=== PATIENT | female | born 1930 ===

== ENCOUNTER 2018-03-04 08:35 | Inpatient (IN) | payer MEDICARE ==
[2018-03-04] MEDS ORDERED: Ondansetron INJ* 2 MG/ML VIAL IV PRN (10:49)
[2018-03-04] MEDS ORDERED: Nicotine Inhaler* 10 MG AMP INH PRN (10:57)
[2018-03-04] MEDS ORDERED: Mouth Piece, Nicotine* 1 EACH CARTRIDGE INH PRN (10:57)
[2018-03-04] MEDS ORDERED: Albuterol/Ipratropium NEB.SOL* Albuterol 2.5 MG/Ipratropium 0.5 MG 3 ML INH PRN (10:57)
[2018-03-04] MEDS: NS 0.9% 1000 ML* 1,000 ML IV SCH (11:06)
[2018-03-04] MEDS ORDERED: Pantoprazole IV* 40 MG IV ONE (11:07)
[2018-03-04 11:12] LABS: Hematocrit 18 % (35-47); Hemoglobin 5.8 g/dl (12.0-16.0); Mean Corpuscular HGB Conc 32 g/dl (31-36); Mean Corpuscular Hemoglobin 28 pg (27-31); Mean Corpuscular Volume 89 fL (80-97); Mean Platelet Volume 9.6 um3 (7.4-10.4); Platelet Count 281 10^3/ul (150-450); Red Blood Count 2.07 10^6/ul (4.0-5.4); Red Cell Distribution Width 14 % (10.5-15); White Blood Count 37.4 10^3/ul (3.5-10.8)
[2018-03-04 11:26] LABS: EGFR Non-African American 102.6 (>60)
[2018-03-04 11:44] LABS: INR 0.92 (0.77-1.02)
[2018-03-04] MEDS ORDERED: Pantoprazole IV* 80 MG in NS 0.9% 100 ML* 100 ML IVPB SCH (12:30)
--- NOTE | 2018-03-04 12:50 | RAD ---
INDICATION: Infiltrate. COMPARISON: Comparison is made with a prior chest x-ray study from February 25, 2018. TECHNIQUE: A portable view of the chest was obtained. FINDINGS: Cardiac and mediastinal contours appear to be within normal limits. The lungs are hyperinflated with flattening of the diaphragms consistent with chronic obstructive pulmonary disease. There is mild prominence of the interstitial markings which is unchanged. There is a small infiltrate at the right lung base and suggestive of a trace right pleural effusion. IMPRESSION: 1. SMALL RIGHT BASILAR INFILTRATE AND TRACE PLEURAL EFFUSION. 2. COPD.
--- NOTE | 2018-03-04 13:41 | HP ---
CC: Dr. Humphreys * HISTORY AND PHYSICAL: DATE OF ADMISSION: 03/04/18 PRIMARY CARE PROVIDER: Dr. Humphreys. CHIEF COMPLAINT: GI bleed. HISTORY OF PRESENT ILLNESS: Ms. Haddad is an 87-year-old female, who was admitted to [facility] on 02/21/18, with diagnosis of pneumonia, COPD exacerbation , and acute on chronic hypoxic respiratory failure. She is being managed with antibiotics, which now appear to have been discontinued and Solu-Medrol for COPD exacerbation. She has been weaned down to 2 L of oxygen. Two days prior to transfer to [facility], the patient reportedly had an episode where she went hypotensive and diaphoretic. She was given fluids and had improvement in her blood pressure. Her blood pressure medications have since been discontinued. On 03/02/18, her hemoglobin was 9.7 and hematocrit of 30.6. This had decreased to 8.2/26.2 on the morning 03/03/18. Subsequently, dropped even further last evening to 7.5/24.3, and this morning she was down to 6.1/19.8. The patient reportedly had black tarry stools. Because of this, I was contacted and was requested to accept the patient in transfer to [facility] for evaluation of GI bleed. Once the patient arrived to [facility], she states that she was feeling okay. She does state that she feels tired. She also states that she does not want to be in the hospital any longer. She denies any pain. She states that she did have a bowel movement recently, but she did not inspect it as she used a bed beach. She does states that every time she goes on antibiotic, she develops very dark stools that are somewhat sticky in nature and that is what she assumed had happened this morning. The patient denies any increased shortness of breath, no significant cough. PAST MEDICAL HISTORY: 1. Hypertension. 2. Advanced COPD with nocturnal oxygen use. 3. Dyslipidemia. 4. Depression/anxiety. PAST SURGICAL HISTORY: 1. Right inguinal hernia repair. 2. Bilateral cataract extraction. MEDICATIONS: From home: 1. Simvastatin 10 mg p.o. daily. 2. Paxil 40 mg p.o. daily. 3. Metoprolol XL 100 mg p.o. twice daily. 4. Lisinopril 40 mg p.o. daily. 5. Combivent Respimat 1 puff inhaled q.4 hours. 6. Hydroxyzine 50 mg p.o. daily p.r.n. anxiety. 7. Clonidine 0.2 mg p.o. b.i.d. 8. Spironolactone 25 mg p.o. daily. ALLERGIES: No known drug allergies. FAMILY HISTORY: Dad of leukemia. Mom of blood clot. The patient had 2 brothers, both with coronary artery disease. SOCIAL HISTORY: The patient is an active smoker of 1 to 1-1/2 packs per day. She has been smoking since the age of 19. She is retired. She lives alone. REVIEW OF SYSTEMS: A complete 11-system review of systems is obtained. Pertinent positives and negatives are as per HPI and otherwise negative. PHYSICAL EXAMINATION GENERAL: The patient is a well-developed elderly, thin, female seen lying flat on bed, in no acute distress. VITAL SIGNS: Blood pressure 110/39, pulse 77, respirations 16, temp 97.6, O2 sat 96% on 2 L. HEENT: Pupils are equal and round. Extraocular muscles are intact. Oropharynx is clear. Oral mucosa is slightly dry. The patient wears upper and lower dentures. There is no submandibular, cervical, or supraclavicular adenopathy. Thyroid is not enlarged. No thyroid nodules are noted. PULMONARY: Lungs clear to auscultation bilaterally. CARDIAC: Normal S1, S2. Regular rate and rhythm. I do not appreciate any murmurs. There is no significant lower extremity edema. ABDOMEN: Bowel sounds present. Abdomen is soft, nontender, nondistended. MUSCULOSKELETAL: There is no cyanosis or clubbing of the digits. There is full active range of motion of all 4 extremities. Skin is warm and dry. There are no rashes. NEURO: Cranial nerves II through XII are grossly intact. Sensation is intact to light touch throughout. Strength is 5/5 and symmetric in both upper and lower extremities bilaterally. PSYCH: The patient is alert, she is oriented x3. Affect appears appropriate. LABORATORY DATA: Labs are pending from [facility], but from [facility], WBC is 40.5, hemoglobin 6.1, hematocrit 19.8, platelets 289. BMP from 03/03/18: Sodium 137 , potassium 4.9, chloride 102. CO2 32, BUN 74, creatinine 0.9, glucose 147, calcium 7.8. Bilirubin 0.2, AST 19, ALT 23, alk phos 55. Albumin 2.0. Stool occult blood, on 03/03/18, positive. Repeat labs at [facility] pending. ASSESSMENT AND PLAN: Ms. Haddad is an 87-year-old female with a history of chronic obstructive pulmonary disease with ongoing tobacco abuse, hypertension, and hyperlipidemia, who was admitted to [facility] on 02/21/18, with acute on chronic hypoxic respiratory failure in the setting of pneumonia and chronic obstructive pulmonary disease exacerbation, who subsequently has developed what appears to be upper gastrointestinal bleed, was transferred to [facility] for further evaluation. 1. Probable upper gastrointestinal bleed: The patient's symptoms of black tarry stools along with the drop in hemoglobin and hematocrit and elevated BUN make me most concerned for an upper gastrointestinal bleed. The patient does not give any history of nonsteroidal anti-inflammatory drug use. She states at home, she utilizes Tylenol for pain. She has been receiving high-dose steroids while at [place]. So, perhaps this contributed some. The patient has not been receiving from what I can tell any PPI. She will receive Protonix 40 mg IV x1 now followed by Protonix drip at 8 mg per hour. GI consultation has been requested. Again, repeat labs are pending as is type and screen. When this comes back, she will likely be transfused at least 1 unit of packed red blood cells. 2. Acute on chronic hypoxic respiratory failure in the setting of pneumonia and chronic obstructive pulmonary disease exacerbation: At this point, the patient's breath sounds are diminished but clear. She appears to be off antibiotics at this point. She is now 12 days into her hospitalization. I will hold off on any antibiotic therapy at this point. She does have a marked leukocytosis of 40.5. I am going to also markedly reduce her steroid dose. We will watch for improvement in her white blood cell count. If this fails to improve, perhaps Hematology evaluation should be considered after discussing with the patient. 3. Ongoing tobacco abuse: The patient will have a nicotine patch and nicotine inhaler available for cravings. 4. Depression/anxiety: We will continue Paxil. 5. Hyperlipidemia: We will continue statin. 6. Hypertension: The patient normally on a significant number of antihypertensives including metoprolol XL at high dose, clonidine, lisinopril at high dose, and spironolactone. Her blood pressure currently is under excellent control not any of these medications. For now, I am going to monitor her blood pressure and as needed will add back her antihypertensives. 7. DVT prophylaxis: According to Adult Thrombosis Prophylaxis Risk Factor Assessment Guide, the patient has a total risk factor score of 4, making her high risk. SCDs alone will be utilized as DVT prophylaxis given her probable upper gastrointestinal bleed. 8. Code status is DNR. This is confirmed with the patient today. TIME SPENT: Sixty-five minutes was spent admitting this patient. [id number]/[facility] #: [id number] CALIST[place]
[2018-03-04] MEDS: Pantoprazole IV* 80 MG in NS 0.9% 250 ML* 250 ML IVPB SCH (13:44)
[2018-03-04] MEDS ORDERED: LORazepam TAB(*) 0.5 MG PO ONE (14:00)
[2018-03-04 18:25] LABS: Hematocrit 24 % (35-47); Hemoglobin 7.8 g/dl (12.0-16.0)
--- NOTE | 2018-03-04 20:58 | CONS ---
CC: Dr. Giovana Humphreys * CONSULTATION REPORT: DATE OF CONSULT: 03/04/18 REQUESTING PHYSICIAN: Dr. Rosa. NARRATIVE: Ms. Haddad is a very pleasant 87-year-old, frail, debilitated female, who was admitted to [facility] on 02/21/18 with complaints of shortness of breath. She was admitted for pneumonia and COPD exacerbation. She was started on antibiotics and steroids and seemed to be improving. However, on the morning of 03/04/18, she was transferred to the [facility] after yesterday she was found to be hypotensive and diaphoretic. Her blood pressure medicines were held. She did have her hemoglobin checked and it was 6.1. She was having melena also. She now really is not complaining much of anything at all. She is receiving blood transfusion as we speak. She states that her breathing is better, but still somewhat difficult. She feels weak and fatigued. PAST MEDICAL HISTORY: Depression; hyperlipidemia; hypertension; severe COPD, with oxygen. PAST SURGICAL HISTORY: Includes hernia repair, cataracts. MEDICATIONS: 1. Simvastatin. 2. Paxil. 3. Metoprolol. 4. Lisinopril. 5. Combivent. 6. Hydroxyzine. 7. Clonidine. 8. Spironolactone. No nonsteroidals. ALLERGIES: None. FAMILY HISTORY: Positive for leukemia and coronary artery disease. SOCIAL HISTORY: She continues to smoke tobacco. She started approximately 65 years ago. REVIEW OF SYSTEMS: Twelve systems were reviewed, other than mentioned in the HPI were unremarkable. PHYSICAL EXAM: Temperature is 97.6, blood pressure is 110/39, pulse is 96, respiratory rate of 32. General: Elderly, frail-appearing female, lying flat in bed, receiving blood, alert. HEENT: Mucous membranes are moist. Dentition is poor. Lungs: Coarse breath sounds bilaterally. Very poor inspiratory effort. Not much air movement. Heart: Regular rate and rhythm. Abdomen: Positive bowel sounds. Soft, nontender, nondistended. No hepatosplenomegaly, masses, rebound, or guarding. Skin is warm and dry. LABORATORY DATA: Of note, her white count is 37.4, hemoglobin is 5.8, platelets of 281. INR is 0.92. Sodium is 139, BUN is 63, creatinine is 0.56. ASSESSMENT AND PLAN: This is an 87-year-old female with severe chronic obstructive pulmonary disease, recovering from pneumonia, who is transferred from [facility] to [facility] due to gastrointestinal bleed. It appears to be an upper gastrointestinal bleed given her elevated BUN. I do wonder if she could have peptic ulcer disease, potentially worsened by her steroids; the steroids will not cause ulcers, it will not allow for proper healing. She potentially could have Helicobacter pylori. I do not hear any nonsteroidals which would make me think of peptic ulcer disease. She could have arteriovenous malformations. At some point, she likely would benefit from an upper endoscopy. Right now, she is receiving blood. Her hemoglobin is 5.2. I think we need to get that higher and hopefully her respiratory status will improve also. She may require anesthesia to sedate her. [id number]/[facility] #: [id number] CALISTA
[2018-03-04] MEDS: Nicotine Patch Removal NOTE FOLLOW UP SCH (22:22)
[2018-03-05] MEDS: Pantoprazole IV* 80 MG in NS 0.9% 250 ML* 250 ML IVPB SCH ×3 (00:24→23:20)
[2018-03-05 00:27] LABS: Hematocrit 23 % (35-47); Hemoglobin 7.3 g/dl (12.0-16.0)
[2018-03-05 06:35] LABS: Hematocrit 20 % (35-47); Hemoglobin 6.5 g/dl (12.0-16.0); Mean Corpuscular HGB Conc 32 g/dl (31-36); Mean Corpuscular Hemoglobin 28 pg (27-31); Mean Corpuscular Volume 88 fL (80-97); Mean Platelet Volume 9.5 um3 (7.4-10.4); Platelet Count 233 10^3/ul (150-450); Red Blood Count 2.32 10^6/ul (4.0-5.4); Red Cell Distribution Width 15 % (10.5-15); White Blood Count 43.5 10^3/ul (3.5-10.8)
[2018-03-05 06:51] LABS: EGFR Non-African American 119.7 (>60)
[2018-03-05] MEDS: Atorvastatin* 10 MG TAB PO SCH (08:10)
[2018-03-05] MEDS: PARoxetine HCL TAB* 40 MG PO SCH (08:10)
[2018-03-05] MEDS: Nicotine PATCH 21 MG/24 HR* PATCH TRANSDERM SCH (08:12)
[2018-03-05] MEDS: NS 0.9% 1000 ML* 1,000 ML IV SCH (08:15)
[2018-03-05] MEDS ORDERED: Furosemide IV* 10 MG/ML 2 ML VIAL (20 MG) IV ONE ×3 (10:09→16:00)
[2018-03-05 17:20] LABS: Hematocrit 30 % (35-47); Hemoglobin 10.2 g/dl (12.0-16.0); Mean Corpuscular HGB Conc 34 g/dl (31-36); Mean Corpuscular Hemoglobin 30 pg (27-31); Mean Corpuscular Volume 87 fL (80-97); Mean Platelet Volume 9.2 um3 (7.4-10.4); Platelet Count 235 10^3/ul (150-450); Red Blood Count 3.47 10^6/ul (4.0-5.4); Red Cell Distribution Width 14 % (10.5-15); White Blood Count 49.4 10^3/ul (3.5-10.8)
--- NOTE | 2018-03-05 17:21 | PN ---
Subjective Date of Service: 03/05/18 Interval History: Hgb 5.8 -> 7.8 after 2u then drift down to 6.5. Getting 2 more units prbc tachypneic. lungs wet sounding. IVF stopped. lasix given 20mg IV x2. intermittently tachycardic cftx started. small melena EGD was not performed. leuokcytosis worsened. BUN improved. no abdominal pain. Objective Active Medications: Albuterol/Ipratropium (Duoneb (Albuterol 2.5 Mg/Ipratropium 0.5 Mg)) 1 neb INH Q4H PRN PRN Reason: SOB/WHEEZING Atorvastatin Calcium (Lipitor*) 5 mg PO DAILY [facility] Last Admin: 03/05/18 08:10 Dose: Not Given Device (Nicotine Mouth Piece*) 1 each INH .USE WITH NICOTROL PRN PRN Reason: CRAVING Pantoprazole Sodium 80 mg/ (Sodium Chloride) 250 mls @ 25 mls/hr IVPB Q10H [facility] PRN Reason: Protocol Last Admin: 03/05/18 11:26 Dose: 25 mls/hr Nicotine (Nicotine Inhaler*) 10 mg INH Q2H PRN PRN Reason: CRAVING Nicotine (Nicotine Patch 21 Mg/24 Hr*) 1 patch TRANSDERM DAILY@0800 [facility] Last Admin: 03/05/18 08:12 Dose: 1 patch Ondansetron HCl (Zofran Inj*) 4 mg IV Q6H PRN PRN Reason: NAUSEA Paroxetine HCl (Paxil Tab*) 40 mg PO DAILY [facility] Last Admin: 03/05/18 08:10 Dose: Not Given Pharmacy Profile Note (Nicotine Patch Removal Note*) 1 note FOLLOW UP 2099 [facility] Last Admin: 03/04/18 22:22 Dose: 1 note Vital Signs - 8 hr 03/05/18 03/05/18 03/05/18 09:33 10:04 10:07 Temperature 97.7 F 97.9 F Pulse Rate 92 88 Respiratory 28 40 Rate Blood Pressure 117/35 134/50 126/50 (mmHg) O2 Sat by Pulse 79 95 Oximetry 03/05/18 03/05/18 03/05/18 13:15 16:04 17:02 Temperature 98.0 F 97.3 F Pulse Rate 86 93 77 Respiratory 28 24 Rate Blood Pressure 127/57 144/60 (mmHg) O2 Sat by Pulse 90 94 91 Oximetry 03/05/18 03/05/18 17:15 17:16 Temperature Pulse Rate Respiratory Rate Blood Pressure 118/50 (mmHg) O2 Sat by Pulse 94 Oximetry Oxygen Devices in Use Now: Nasal Cannula Appearance: NAD but tachypenic and very [place] w/o hearing aides. cachexia appearing. Eyes: No Scleral Icterus, PERRLA Ears/Nose/Mouth/Throat: NL Teeth, Lips, Gums Respiratory: - - rales b/l bases. Cardiovascular: NL Sounds; No Murmurs; No JVD Abdominal: NL Sounds; No Tenderness; No Distention, No Hepatosplenomegaly Extremities: No Edema Skin: No Rash or Ulcers Neurological: Alert and Oriented x 3, NL Sensation, NL Muscle Strength and Tone Nutrition: Taking PO's Result Diagrams: 03/05/18 17:10 03/05/18 06:28 Additional Lab and Data: Laboratory Results - last 24 hr 03/04/18 03/05/18 03/05/18 10:55 00:17 06:28 WBC 43.5 H RBC 2.32 L Hgb 7.3 L 6.5 L Hct 23 L 20 L MCV 88 MCH 28 MCHC 32 RDW 15 Plt Count 233 MPV 9.5 Neut % (Auto) Lymph % (Auto) [place] % (Auto) Eos % (Auto) Baso % (Auto) Absolute Neuts (auto) Absolute Lymphs (auto) Absolute Monos (auto) Absolute Eos (auto) Absolute Basos (auto) Absolute Nucleated RBC Nucleated RBC % Sodium Potassium Chloride Carbon Dioxide Anion Gap BUN Creatinine Est GFR ( Amer) Est GFR (Non-Af Amer) BUN/Creatinine Ratio Glucose Calcium B-Natriuretic Peptide Blood Type O Positive Antibody Screen Negative Crossmatch See Detail 03/05/18 03/05/18 03/05/18 06:28 17:10 17:10 WBC 49.4 H RBC 3.47 L Hgb 10.2 L Hct 30 L MCV 87 MCH 30 MCHC 34 RDW 14 Plt Count 235 MPV 9.2 Neut % (Auto) 91.4 H Lymph % (Auto) 1.6 L [place] % (Auto) 6.8 Eos % (Auto) 0.1 Baso % (Auto) 0.1 Absolute Neuts (auto) 45.1 H Absolute Lymphs (auto) 0.8 L Absolute Monos (auto) 3.4 H Absolute Eos (auto) 0 Absolute Basos (auto) 0.1 Absolute Nucleated RBC 0 Nucleated RBC % 0 Sodium 137 L Potassium 4.4 Chloride 107 Carbon Dioxide 27 Anion Gap 3 BUN 48 H Creatinine 0.49 L Est GFR ( Amer) 154.0 Est GFR (Non-Af Amer) 119.7 BUN/Creatinine Ratio 98.0 H Glucose 146 H Calcium 7.3 L B-Natriuretic Peptide 250 H Blood Type Antibody Screen Crossmatch Assess/Plan/Problems-Billing Assessment: 87 yo female PMH severe COPD on chronic noctural O2 transfer from [facility] after melena, acute blood loss anemia. . Had been getting cftx->zosyn + high dose steroids for potential COPD exac/pna. Pending EGD. Acute on Chronic Hypoxic Respiratory failure. Marked persistent leukocytosis. - Patient Problems (1) Melena Current Visit: Yes Status: Acute Code(s): K92.1 - MELENA SNOMED Code(s): 7152529 Comment: now s/p 4u pRBC still waiting on EGD CBC q8hr small melena today. protonix IV gtt. appreciate GI recs. (2) Acute and chronic respiratory failure Current Visit: Yes Status: Acute Code(s): J96.20 - ACUTE AND CHR RESP FAILURE, UNSP W HYPOXIA OR HYPERCAPNIA SNOMED Code(s): 35002653 Comment: Initial CXR at OSH read as potential CHF. inhalers changed to scheduled per family report uses O2 nocturnally, can't state how much consider ECHO after EGD and further stabilization got lasix 20mg IV x2 after blood and IVF after e/o volume overload cftx restarted after worsening hemodynamics( tachycardia) repeat CXR in AM. (3) Leukocytosis Current Visit: Yes Status: Acute Code(s): D72.829 - ELEVATED WHITE BLOOD CELL COUNT, UNSPECIFIED SNOMED Code(s): 805803340 Comment: In 30s-40s since OSH admission. attributed to steroids but leukomoid reaction or maligancy also in differential likely heme/onc consult in AM. (4) COPD (chronic obstructive pulmonary disease) Current Visit: Yes Status: Acute Code(s): J44.9 - CHRONIC OBSTRUCTIVE PULMONARY DISEASE, UNSPECIFIED SNOMED Code(s): 48715732 Comment: dulera and spiriva started. continue albuterol nebs hold off on steroids in setting of GIB and long course at OSH. cftx restarted. (5) Smoker Current Visit: Yes Status: Acute Code(s): F17.200 - NICOTINE DEPENDENCE, UNSPECIFIED, UNCOMPLICATED SNOMED Code(s): 14214203 Comment: nicotine patch.
[2018-03-05] MEDS: cefTRIAXone(*) 1 GM in NS 0.9% 50 ML* 50 ML IVPB SCH (18:02)
[2018-03-05 18:14] LABS: ABS Basophils 0.1 10^3/ul (0-0.2); ABS Eosinophils 0 10^3/ul (0-0.6); ABS Lymphocytes 0.8 10^3/ul (1.0-4.8); ABS Monocytes 3.4 10^3/ul (0-0.8); ABS Neutrophils 45.1 10^3/ul (1.5-7.7); ABS Nucleated RBC 0 10^3/ul; Eosinophil % 0.1 % (0-6); Lymphocyte % 1.6 % (25-47); Nucleated Red Blood Cells % 0
[2018-03-05] MEDS ORDERED: Albuterol/Ipratropium NEB.SOL* Albuterol 2.5 MG/Ipratropium 0.5 MG 3 ML INH SCH (19:00)
[2018-03-05] MEDS: Albuterol/Ipratropium NEB.SOL* Albuterol 2.5 MG/Ipratropium 0.5 MG 3 ML INH SCH ×2 (20:03→22:28)
[2018-03-05] MEDS: Nicotine Patch Removal NOTE FOLLOW UP SCH (21:06)
--- NOTE | 2018-03-05 23:22 | PN ---
GASTROENTEROLOGY PROGRESS NOTE: DATE OF VISIT: 03/05/18 HISTORY: Mrs. Haddad has been having some breathing issues this morning. She continued to pass some blood from her rectum overnight and most recently a small amount this morning, none since early this morning. Her hematocrit after 2 units of blood did go from 18 to 24, but then did drop back down to 20 this morning. She has a markedly elevated white count of 43.5,000. The patient's respiratory status is poor at this time. She is currently on 4 L of oxygen with an O2 sat in the range of 93% to 95%. She does have some rales. She is receiving a third unit of packed red blood cells and has received 20 mg of IV Lasix. Her respiratory rate at times is as high as 40. Patient is somewhat confused and very hard of hearing. She denies any abdominal pain. Her INR is normal at 0.9. BUN on admission was 63, down to 48. She is on IV pantoprazole drip. PHYSICAL EXAMINATION: Temperature is 98.3, heart rate of 92, blood pressure 110 /40. Heart is regular rate and rhythm. Lungs have rhonchi and rales. Abdomen is soft. There is no tenderness. Bowel sounds are present. There is no distention. IMPRESSION: Mrs. Haddad has what appears to be an upper GI bleed. It appears she probably bled more overnight with a repeat drop in hematocrit. She has had no further blood per rectum since early this morning and hopefully the pantoprazole has controlled the bleeding. She is being evaluated for upper endoscopy today, however, given her tenuous respiratory status with her chronic obstructive pulmonary disease, possible pneumonia and possible congestive heart failure, we may need to hold off until this is stabilized. She will have a repeat hematocrit 2 hours after her second unit today. She should be kept on IV pantoprazole drip. She is currently n.p.o. for reassessment of her respiratory status a little bit later today for consideration of upper endoscopy with anesthesia assistance. If there is no ongoing evidence of active bleeding, this may be deferred until her respiratory status is significantly improved. [id number]/[facility] #: [id number] MTDD
[2018-03-06] MEDS: Albuterol/Ipratropium NEB.SOL* Albuterol 2.5 MG/Ipratropium 0.5 MG 3 ML INH SCH ×4 (06:27→19:47)
[2018-03-06] MEDS: Mometasone/Formoter 200/5 MDI INH SCH ×2 (07:13→19:47)
[2018-03-06] MEDS: Tiotropium CAP.INH* CAP.INH/18 MCG (USE ORDER SET !) INH SCH (07:14)
[2018-03-06 07:24] LABS: Hematocrit 24 % (35-47); Mean Corpuscular HGB Conc 34 g/dl (31-36); Mean Corpuscular Hemoglobin 29 pg (27-31); Mean Corpuscular Volume 87 fL (80-97); Mean Platelet Volume 9.6 um3 (7.4-10.4); Platelet Count 225 10^3/ul (150-450); Red Blood Count 2.72 10^6/ul (4.0-5.4); Red Cell Distribution Width 14 % (10.5-15); White Blood Count 36.6 10^3/ul (3.5-10.8)
[2018-03-06 07:29] LABS: ABS Basophils 0 10^3/ul (0-0.2); ABS Eosinophils 0 10^3/ul (0-0.6); ABS Lymphocytes 0.6 10^3/ul (1.0-4.8); ABS Monocytes 2.4 10^3/ul (0-0.8); ABS Neutrophils 33.6 10^3/ul (1.5-7.7); ABS Nucleated RBC 0 10^3/ul; Eosinophil % 0.1 % (0-6); Lymphocyte % 1.6 % (25-47); Nucleated Red Blood Cells % 0
[2018-03-06 07:39] LABS: EGFR Non-African American 114.3 (>60)
[2018-03-06] MEDS: Nicotine PATCH 21 MG/24 HR* PATCH TRANSDERM SCH (08:43)
[2018-03-06] MEDS ORDERED: Spiriva Inhaler DEVICE* 1 EACH DEVICE INH ONE (09:00)
--- NOTE | 2018-03-06 09:09 | RAD ---
INDICATION: Hypoxia. COMPARISON: Comparison is made with a prior chest x-ray study from March 04, 2018. TECHNIQUE: A portable view of the chest was obtained. FINDINGS: Cardiac and mediastinal contours appear to be within normal limits. There is mild diffuse prominence of the interstitial markings which are unchanged. The lungs appear hyperinflated. There is a small infiltrate at the right lung base and a trace right pleural effusion which appear unchanged. IMPRESSION: SMALL RIGHT BASILAR INFILTRATE AND TRACE PLEURAL EFFUSION, UNCHANGED.
[2018-03-06] MEDS: Atorvastatin* 10 MG TAB PO SCH (11:09)
[2018-03-06] MEDS: PARoxetine HCL TAB* 40 MG PO SCH (11:09)
[2018-03-06] MEDS: Pantoprazole IV* 80 MG in NS 0.9% 250 ML* 250 ML IVPB SCH ×2 (11:24→20:23)
[2018-03-06] MEDS ORDERED: methylPREDNISolone SOD 40 MG* 1 ML VIAL IV ONE (13:00)
[2018-03-06] MEDS ORDERED: Lidocaine 2% VISCOUS* 15 ML UDC ONE (15:04)
[2018-03-06] MEDS ORDERED: Lidocaine 4% TOPICAL* 50 ML TOP.SOLN ONE (15:05)
[2018-03-06] MEDS ORDERED: Midazolam* 1 MG/ML 2 ML VIAL (2 MG) ONE (15:07)
[2018-03-06] MEDS ORDERED: fentaNYL* 50 MCG/ML 2 ML VIAL (100 MCG VIAL) ONE (15:07)
[2018-03-06] MEDS ORDERED: Acetaminophen IV 1GM/100ML * 10 MG/ML VIAL IVPB ONE (15:35)
[2018-03-06] MEDS ORDERED: Naloxone* 0.4 MG/ML 1 ML VIAL IV PRN (15:35)
[2018-03-06] MEDS ORDERED: Ondansetron INJ* 2 MG/ML VIAL IV PRN (15:35)
[2018-03-06] MEDS ORDERED: Propofol* 10 MG/ML 20 ML BTL IV PUSH ONE (15:49)
[2018-03-06] MEDS ORDERED: Lidocaine 2% PF * 5 ML VIAL ONE (15:49)
--- NOTE | 2018-03-06 16:49 | PN ---
Subjective Date of Service: 03/06/18 Interval History: Respiratory rate stabilized overnight. Hgb 8.0 s/p EGD this afternoon with Dr. Hess with numerous ulcers/erosuibs in stomach and duodenum including with a crater and vissible vessel that was clipped. Pt without complaint. Objective Active Medications: Albuterol/Ipratropium (Duoneb (Albuterol 2.5 Mg/Ipratropium 0.5 Mg)) 1 neb INH [id number] AWAKE [facility] Last Admin: 03/06/18 12:35 Dose: 1 neb Atorvastatin Calcium (Lipitor*) 5 mg PO DAILY [facility] Last Admin: 03/06/18 11:09 Dose: Not Given Device (Nicotine Mouth Piece*) 1 each INH .USE WITH NICOTROL PRN PRN Reason: CRAVING Pantoprazole Sodium 80 mg/ (Sodium Chloride) 250 mls @ 25 mls/hr IVPB Q10H [facility] PRN Reason: Protocol Last Admin: 03/06/18 11:24 Dose: 25 mls/hr Ceftriaxone Sodium 1 gm/ (Sodium Chloride) 50 mls @ 200 mls/hr IVPB Q24H [facility] Last Admin: 03/05/18 18:02 Dose: 200 mls/hr Mometasone Furoate/Formoterol Fumar (Dulera 200/5 Mdi*) 2 puff INH BID [facility] Last Admin: 03/06/18 07:13 Dose: 2 puff Naloxone HCl (Narcan*) 0.08 mg IV Q2M PRN PRN Reason: severe induced resp depression Stop: 03/07/18 15:34 Nicotine (Nicotine Inhaler*) 10 mg INH Q2H PRN PRN Reason: CRAVING Nicotine (Nicotine Patch 21 Mg/24 Hr*) 1 patch TRANSDERM DAILY@0800 [facility] Last Admin: 03/06/18 08:43 Dose: 1 patch Ondansetron HCl (Zofran Inj*) 4 mg IV Q6H PRN PRN Reason: NAUSEA Ondansetron HCl (Zofran Inj*) 4 mg IV ONCE PRN PRN Reason: NAUSEA/VOMITING Stop: 03/06/18 19:00 Paroxetine HCl (Paxil Tab*) 40 mg PO DAILY [facility] Last Admin: 03/06/18 11:09 Dose: Not Given Pharmacy Profile Note (Nicotine Patch Removal Note*) 1 note FOLLOW UP 2099 [facility] Last Admin: 03/05/18 21:06 Dose: 1 note Tiotropium Mears (Spiriva Cap.Inh*) 1 cap INH DAILY [facility] Last Admin: 03/06/18 07:14 Dose: 1 cap Vital Signs - 8 hr 03/06/18 03/06/18 03/06/18 08:48 12:35 16:17 Temperature 98.2 F Pulse Rate 103 128 Respiratory 22 16 28 Rate Blood Pressure 139/78 (mmHg) O2 Sat by Pulse 94 96 Oximetry 03/06/18 16:30 Temperature Pulse Rate 128 Respiratory 28 Rate Blood Pressure 132/68 (mmHg) O2 Sat by Pulse 94 Oximetry Oxygen Devices in Use Now: Nasal Cannula Appearance: chronically ill appearing. cachexia Eyes: No Scleral Icterus Respiratory: Symmetrical Chest Expansion and Respiratory Effort, - - fine crackles right base. rhonchi resolved after cough. Cardiovascular: - - tachycardic, regulary, no m/r/g Abdominal: NL Sounds; No Tenderness; No Distention, No Hepatosplenomegaly Extremities: No Edema, No Clubbing, Cyanosis Skin: No Rash or Ulcers, No Nodules or Sclerosis Neurological: Alert and Oriented x 3, - - [place] DEE-NI', BETH. Nutrition: Taking PO's Result Diagrams: 03/06/18 07:01 03/06/18 07:01 Additional Lab and Data: Laboratory Results - last 24 hr 03/04/18 03/05/18 03/05/18 10:55 17:10 17:10 WBC 49.4 H RBC 3.47 L Hgb 10.2 L Hct 30 L MCV 87 MCH 30 MCHC 34 RDW 14 Plt Count 235 MPV 9.2 Neut % (Auto) 91.4 H Lymph % (Auto) 1.6 L [place] % (Auto) 6.8 Eos % (Auto) 0.1 Baso % (Auto) 0.1 Absolute Neuts (auto) 45.1 H Absolute Lymphs (auto) 0.8 L Absolute Monos (auto) 3.4 H Absolute Eos (auto) 0 Absolute Basos (auto) 0.1 Absolute Nucleated RBC 0 Nucleated RBC % 0 Hem Pathologist Commnt Sodium Potassium Chloride Carbon Dioxide Anion Gap BUN Creatinine Est GFR ( Amer) Est GFR (Non-Af Amer) BUN/Creatinine Ratio Glucose Calcium Magnesium B-Natriuretic Peptide 250 H Blood Type O Positive Antibody Screen Negative Crossmatch See Detail 03/06/18 03/06/18 07:01 07:01 WBC 36.6 H RBC 2.72 L Hgb 8.0 L Hct 24 L MCV 87 MCH 29 MCHC 34 RDW 14 Plt Count 225 MPV 9.6 Neut % (Auto) 91.7 H Lymph % (Auto) 1.6 L [place] % (Auto) 6.6 Eos % (Auto) 0.1 Baso % (Auto) 0 Absolute Neuts (auto) 33.6 H Absolute Lymphs (auto) 0.6 L Absolute Monos (auto) 2.4 H Absolute Eos (auto) 0 Absolute Basos (auto) 0 Absolute Nucleated RBC 0 Nucleated RBC % 0 Hem Pathologist Commnt Sodium 140 Potassium 4.0 Chloride 103 Carbon Dioxide 34 H Anion Gap 3 BUN 40 H Creatinine 0.51 Est GFR ( Amer) 147.0 Est GFR (Non-Af Amer) 114.3 BUN/Creatinine Ratio 78.4 H Glucose 122 H Calcium 7.8 L Magnesium 1.9 B-Natriuretic Peptide Blood Type Antibody Screen Crossmatch Assess/Plan/Problems-Billing Assessment: 87 yo female PMH severe COPD on chronic noctural O2 transfer from [facility] after melena, acute blood loss anemia. . Had been getting cftx->zosyn + high dose steroids for potential COPD exac/pna. EGD with numurouse erosions/uclear and 1 crater in duodenum with vissible vessel s/p clipped. Acute on Chronic Hypoxic Respiratory failure. Marked persistent leukocytosis. - Patient Problems (1) Melena Current Visit: Yes Status: Acute Code(s): K92.1 - MELENA SNOMED Code(s): 5013529 Comment: now s/p 4u pRBC EGD with erosions/ulcers, duodenal crater with vissible ulcer CBC q12 protonix IV gtt until tomorrow. then 40mg po BID for 6 weeks then 40mg daily appreciate GI recs. f/u CLOtest (2) Acute and chronic respiratory failure Current Visit: Yes Status: Acute Code(s): J96.20 - ACUTE AND CHR RESP FAILURE, UNSP W HYPOXIA OR HYPERCAPNIA SNOMED Code(s): 50673668 Comment: Initial CXR at OSH read as potential CHF. inhalers changed to scheduled per family report uses O2 nocturnally, can't state how much will get ECHO on 4/10 got lasix 20mg IV x2 after blood and IVF after e/o volume overload cftx restarted after worsening hemodynamics( tachycardia) (3) Leukocytosis Current Visit: Yes Status: Acute Code(s): D72.829 - ELEVATED WHITE BLOOD CELL COUNT, UNSPECIFIED SNOMED Code(s): 108740860 Comment: In 30s-40s since OSH admission. attributed to steroids but leukomoid reaction or maligancy also in differential consider heme/onc consult in AM. (4) COPD (chronic obstructive pulmonary disease) Current Visit: Yes Status: Acute Code(s): J44.9 - CHRONIC OBSTRUCTIVE PULMONARY DISEASE, UNSPECIFIED SNOMED Code(s): 78504610 Comment: dulera and spiriva started. continue albuterol nebs hold off on steroids in setting of GIB and long course at OSH. continue cftx (5) Smoker Current Visit: Yes Status: Acute Code(s): F17.200 - NICOTINE DEPENDENCE, UNSPECIFIED, UNCOMPLICATED SNOMED Code(s): 55539471 Comment: nicotine patch. Status and Disposition: medicine inpatient.
[2018-03-06 18:39] LABS: Hematocrit 21 % (35-47); Hemoglobin 7.2 g/dl (12.0-16.0); Mean Corpuscular HGB Conc 34 g/dl (31-36); Mean Corpuscular Hemoglobin 29 pg (27-31); Mean Corpuscular Volume 88 fL (80-97); Mean Platelet Volume 9.3 um3 (7.4-10.4); Platelet Count 247 10^3/ul (150-450); Red Blood Count 2.44 10^6/ul (4.0-5.4); Red Cell Distribution Width 14 % (10.5-15); White Blood Count 32.5 10^3/ul (3.5-10.8)
[2018-03-06 18:43] LABS: ABS Basophils 0.1 10^3/ul (0-0.2); ABS Eosinophils 0 10^3/ul (0-0.6); ABS Lymphocytes 0.4 10^3/ul (1.0-4.8); ABS Monocytes 2.5 10^3/ul (0-0.8); ABS Neutrophils 29.6 10^3/ul (1.5-7.7); ABS Nucleated RBC 0 10^3/ul; Eosinophil % 0 % (0-6); Lymphocyte % 1.2 % (25-47); Nucleated Red Blood Cells % 0
[2018-03-06] MEDS: cefTRIAXone(*) 1 GM in NS 0.9% 50 ML* 50 ML IVPB SCH (19:01)
--- NOTE | 2018-03-06 19:46 | PN ---
Progress Note - Progress Note Date of Service: 03/06/18 - Gastroenterology Note: Patient seen and examined this morning. Feeling better this morning. Anxious about EGD today. Denies CP/SOB. No abdominal pain. Small amount of melena overnight. Vital Signs: Temp Pulse Resp BP Pulse Ox 97.9 F 124 26 130/49 89 03/06/18 18:17 03/06/18 18:17 03/06/18 18:17 03/06/18 18:17 03/06/18 18:17 Physical Examination: GENERAL: NAD. CV: RRR. PULM: Decreased breath sounds throughout. Coarse breath sounds in bases B/L. No wheezing and rhonci. ABDOMEN: Soft, NT/ND. Laboratory Results - last 24 hr 03/05/18 03/05/18 03/06/18 17:10 17:10 07:01 WBC 36.6 H RBC 2.72 L Hgb 8.0 L Hct 24 L MCV 87 MCH 29 MCHC 34 RDW 14 Plt Count 225 MPV 9.6 Neut % (Auto) 91.7 H Lymph % (Auto) 1.6 L [place] % (Auto) 6.6 Eos % (Auto) 0.1 Baso % (Auto) 0 Absolute Neuts (auto) 33.6 H Absolute Lymphs (auto) 0.6 L Absolute Monos (auto) 2.4 H Absolute Eos (auto) 0 Absolute Basos (auto) 0 Absolute Nucleated RBC 0 Nucleated RBC % 0 Hem Pathologist Commnt Sodium Potassium Chloride Carbon Dioxide Anion Gap BUN Creatinine Est GFR ( Amer) Est GFR (Non-Af Amer) BUN/Creatinine Ratio Glucose Calcium Magnesium Total Bilirubin AST ALT Alkaline Phosphatase B-Natriuretic Peptide 250 H Total Protein Albumin Globulin Albumin/Globulin Ratio 03/06/18 03/06/18 03/06/18 07:01 18:29 18:29 WBC 32.5 H RBC 2.44 L Hgb 7.2 L Hct 21 L MCV 88 MCH 29 MCHC 34 RDW 14 Plt Count 247 MPV 9.3 Neut % (Auto) 91.0 H Lymph % (Auto) 1.2 L [place] % (Auto) 7.5 H Eos % (Auto) 0 Baso % (Auto) 0.3 Absolute Neuts (auto) 29.6 H Absolute Lymphs (auto) 0.4 L Absolute Monos (auto) 2.5 H Absolute Eos (auto) 0 Absolute Basos (auto) 0.1 Absolute Nucleated RBC 0 Nucleated RBC % 0 Hem Pathologist Commnt Sodium 140 143 Potassium 4.0 4.3 Chloride 103 105 Carbon Dioxide 34 H 32 Anion Gap 3 6 BUN 40 H 37 H Creatinine 0.51 0.54 Est GFR ( Amer) 147.0 137.7 Est GFR (Non-Af Amer) 114.3 107.0 BUN/Creatinine Ratio 78.4 H 68.5 H Glucose 122 H 116 H Calcium 7.8 L 7.8 L Magnesium 1.9 Total Bilirubin 0.90 AST 11 L ALT 11 Alkaline Phosphatase 34 B-Natriuretic Peptide Total Protein 4.2 L Albumin 2.2 L Globulin 2.0 Albumin/Globulin Ratio 1.1 A/P: 87 yo female with COPD recently treated for COPD exacerbation on long- duration of steroids p/w melena and anemia s/p 4 units of prbcs. 1. Melena with UGIB - improving. ~EGD today revealed several small clean-based ulcers erosions in antrum of the stomach with gastritis, several large clean-based and cratered ulcers with one visible vessel with recent stigmata of bleeding s/p endoclip placement with hemostasis and duodenitis. No active bleeding. Large hiatal hernia and widely patient non-obstructing Shatzki's ring were also seen. ~Continue PPI gtt for another 24 hours, then switch to Protonix 40 mg BID for 6 weeks, then decrease to once daily. ~Follow-up Clotest results to r/o H.pylori. ~Full liquid diet tonight. May advance tomorrow if no overnight issues. 2. Acute blood loss anemia s/p 4 units of prbcs - stable. ~Monitor H/H daily. ~Transfuse prbcs as needed. D/w Dr. Lamb. Opal Hess D.O.
[2018-03-06] MEDS: Nicotine Patch Removal NOTE FOLLOW UP SCH (20:18)
[2018-03-07] MEDS: Pantoprazole IV* 80 MG in NS 0.9% 250 ML* 250 ML IVPB SCH ×3 (00:26→16:00)
[2018-03-07] MEDS: Albuterol/Ipratropium NEB.SOL* Albuterol 2.5 MG/Ipratropium 0.5 MG 3 ML INH SCH ×2 (01:56→07:59)
[2018-03-07 04:53] LABS: Hematocrit 24 % (35-47); Hemoglobin 7.9 g/dl (12.0-16.0); Mean Corpuscular HGB Conc 34 g/dl (31-36); Mean Corpuscular Hemoglobin 30 pg (27-31); Mean Corpuscular Volume 88 fL (80-97); Mean Platelet Volume 9.1 um3 (7.4-10.4); Platelet Count 236 10^3/ul (150-450); Red Blood Count 2.68 10^6/ul (4.0-5.4); Red Cell Distribution Width 15 % (10.5-15); White Blood Count 24.9 10^3/ul (3.5-10.8)
[2018-03-07 04:55] LABS: ABS Basophils 0.1 10^3/ul (0-0.2); ABS Eosinophils 0 10^3/ul (0-0.6); ABS Lymphocytes 0.2 10^3/ul (1.0-4.8); ABS Monocytes 0.6 10^3/ul (0-0.8); ABS Nucleated RBC 0 10^3/ul; Eosinophil % 0 % (0-6); Lymphocyte % 0.7 % (25-47); Nucleated Red Blood Cells % 0
[2018-03-07 05:07] LABS: EGFR Non-African American 98.6 (>60)
--- NOTE | 2018-03-07 05:39 | PRO ---
CC: Dr. Giovana Humphreys; Dr. Lamb * GASTROENTEROLOGY OPERATIVE REPORT: DATE OF PROCEDURE: 03/06/18 OPERATIVE PROCEDURE: Esophagogastroduodenoscopy to third portion of duodenum. SURGEON: Opal Hess MD. ANESTHESIA: MAC. HISTORY OF PRESENT ILLNESS: Yelena is a very pleasant 87-year-old female with a history of COPD and recently on long-term steroids for a COPD exacerbation. She presented from [facility] with melena and acute blood loss anemia. She is here for a diagnostic endoscopy with possible therapeutic intervention. PREOPERATIVE DIAGNOSES: 1. Melena. 2. Acute blood loss anemia. 3. Long-term steroid use. POSTOPERATIVE DIAGNOSES: 1. Normal-appearing mid and proximal esophagus. 2. Widely patent nonobstructing Schatzki's ring. 3. A few patchy white exudates in the distal esophagus with biopsies. 4. A 6-cm hiatal hernia. 5. Several small clean-based gastric ulcers and erosions in the antrum with CLOtest to rule out H. Pylori. 6. Several large clean-based and cratered ulcers ranging from 6 mm to 12 mm and in the bulb and first portion of the duodenum with 1 visible vessel and possible underlying polyp status post 1 Endo Clip placement with hemostasis. 7. Gastroduodenitis. RECOMMENDATIONS: 1. The patient to continue Protonix drip for another 24 hours. 2. Patient should be switched to pantoprazole 40 mg orally twice daily for 6 weeks and decrease to once daily. Due to life-threatening nature of this upper GI bleeding, patient should be on daily PPI therapy due to likely need for steroids in the future and hospitalizations due to COPD to prevent stress ulcers. 3. Avoid NSAID therapy. 4. May start a full liquid diet tonight and may advance to a regular diet tomorrow if no overnight issues. 5. Continue to monitor the patient's hemoglobin daily. 6. Further recommendations will be provided as the patient's clinical course progresses. OPERATIVE PROCEDURE: Esophagogastroduodenoscopy was explained in detail to the patient. The risks, benefits, complications, alternatives, possibilities of missed lesions were explained and understood. Complications included, but were not limited to reaction to anesthesia, aspiration, increased risk of bleeding, and perforation. All questions were answered. The patient demonstrated understanding of the conversation and informed consent was obtained. Next, the patient was brought to the operating room where blood pressure, cardiac and oxygen monitors were applied. The patient was found to be a fit candidate for moderate anesthesia. After adequate IV sedation was achieved, a bite block was placed. Next, a standard adult Olympus endoscope was inserted per os under direct visualization to the first and second portion of the duodenum. There were several large clean-based and cratered ulcers noted in the bulb in the first portion of the duodenum ranging from 6-mm to 12-mm. Along the duodenal sweep in the 5 o'clock position there was a visible vessel that appeared to have recently bleed. There may have been an underlying polyp as well. One Endo Clip was placed. Hemostasis was seen. Significant amount of edema and erythema was also seen consistent with duodenitis. No active bleeding was noted. The endoscope was then further withdrawn into the stomach where a mild erythema was noted consistent with gastritis of the antrum. As well, there were several small clean based ulcers and erosions noted. No active bleeding was seen. On retroflexion, the patient had a loose gastric cardia sling. Further withdrawal of the endoscope into the distal esophagus revealed a large sliding hiatal hernia from 40 cm to 34 cm from the incisors. There also was a widely patent nonobstructing distal Schatzki's ring in the esophagus. A few patchy exudative areas were seen in the distal esophagus. This may have been food debris, but this area was biopsied to rule out seth esophagitis due to long-term steroid therapy. The rest of the tubular esophagus was normal appearing. Air was then removed from the patient. Endoscope was removed from the patient. The patient tolerated the procedure well. There were no immediate complications. 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 Thank you, Dr. Lamb, for allowing us to participate in the care of your patient. If you should have any further questions or concerns, please do not hesitate to contact us. [id number]/[facility] #: [id number] [place]
[2018-03-07] MEDS ORDERED: Albuterol 2.5 MG/3 ML NEB.SOL* (0.083%) INH PRN (07:59)
[2018-03-07] MEDS: Tiotropium CAP.INH* CAP.INH/18 MCG (USE ORDER SET !) INH SCH (08:01)
[2018-03-07] MEDS: Mometasone/Formoter 200/5 MDI INH SCH ×2 (08:02→19:47)
[2018-03-07] MEDS ORDERED: Potassium Chloride LIQUID* 20 MEQ PACKET PO SCH (09:00)
[2018-03-07] MEDS: PARoxetine HCL TAB* 40 MG PO SCH (09:11)
[2018-03-07] MEDS: Atorvastatin* 10 MG TAB PO SCH (09:11)
[2018-03-07] MEDS: Nicotine PATCH 21 MG/24 HR* PATCH TRANSDERM SCH (09:12)
--- NOTE | 2018-03-07 11:53 | ECHO ---
Patient: YURI LOCK [facility] Rec#: [id number] : 1930 Date: 03/07/2018 Age: 87y Height: 167.64 cm / 66.0 in Weight: 51.26 kg / 113.0 lbs Sex: F BSA: 1.57 Room#: 435 Admit Date#: 03/04/2018 Type: Inpatient Referring: Nahid Lamb Reading: Vishnu Rao MD Milliner Helper: [facility] Transthoracic Echocardiogram Indication: CHF BP: 124/51 HR: 108 Rhythm: Tachycardia Findings History: COPD, HTN, HLD, smoker, new upper GI bleed with anemia, current pneumonia. Technical Comments: The study quality is fair. The study is technically limited due to the patient's history of COPD. Completed at 1045. Left Ventricle: The left ventricular chamber size is normal. Moderate concentric left ventricular hypertrophy is observed. Global left ventricular wall motion and contractility are within normal limits. The left ventricle appears hyperdynamic. The estimated ejection fraction is greater than 65%. The assessment of diastolic function is non-diagnostic. Left Atrium: The left atrial chamber size is normal. Right Ventricle: The right ventricle wall thickness is moderately increased. The right ventricular cavity size is normal. The right ventricular global systolic function is hyperdynamic. Right Atrium: The right atrial cavity size is normal. Aortic Valve: The aortic valve is trileaflet. The aortic valve leaflets are mildly thickened. There is aortic annular calcification. There is trace to mild aortic regurgitation. There is borderline aortic stenosis present.Increased velocity probably due more to hyperdynamic LV systolic function. Mitral Valve: There is posterior mitral annular calcification. The mitral valve leaflets are mildly thickened. There is trace to mild mitral regurgitation. There is no evidence of mitral stenosis. Tricuspid Valve: The tricuspid valve leaflets are normal. There is trace to mild tricuspid regurgitation. The right ventricular systolic pressure is estimated at 41 mmHg. There is evidence of mild pulmonary hypertension. There is no tricuspid stenosis. Pulmonic Valve: The pulmonic valve appears normal. There is a trace pulmonic regurgitation. There is no pulmonic stenosis. Pericardium: There is no significant pericardial effusion. A pericardial fat pad is visualized. Aorta: There is no dilatation of the ascending aorta. There is no dilatation of the aortic arch. The aortic root is normal in size. Pulmonary Artery: The main pulmonary artery is not well visualized. Venous: The inferior vena cava appears normal in size. There is a greater than 50% respiratory change in the inferior vena cava dimension. Conclusions Moderate concentric left ventricular hypertrophy is observed. The left ventricle appears hyperdynamic. The estimated ejection fraction is greater than 65%. No significant valvular disease: There is trace to mild aortic regurgitation. There is borderline aortic stenosis present. Increased velocity probably due more to hyperdynamic LV systolic function. There is trace to mild mitral regurgitation. There is trace to mild tricuspid regurgitation. There is evidence of mild pulmonary hypertension. There is a trace pulmonic regurgitation. No reports of prior studies are offered for comparison. Measurements Name Value Normal Range RVIDd (AP) 2D 2.3 cm (0.9 - 2.6) RVDdMajor (2D) 3.9 cm (2.2 - 4.4) RVAW (2D) 1 cm (0.2 - 0.5) RAd ISD 4CH 4.8 cm (3.4 - 4.9) RA (A4C)W 3.9 cm (2.9 - 4.6) IVSd (2D) 1.3 cm (0.6 - 1) LVPWd (2D) 1.3 cm (0.6 - 1) LVIDd (2D) 3.6 cm (3.6 - 5.4) LVIDs (2D) 2.5 cm - LV FS (2D) 31 % (25 - 45) EF Teichholz (2D) 60 % - Aortic Annulus 1.6 cm (1.4 - 2.6) Ao root diameter (2D) 3.1 cm (2.1 - 3.5) Ascending Ao 3.1 cm (2.1 - 3.4) Aortic arch 2.2 cm (1.8 - 3.4) LA dimension (AP) 2D 3.6 cm (2.3 - 3.8) LAd ISD 4CH 4.8 cm (2.9 - 5.3) LA ISD 4CH W 3.5 cm (2.5 - 4.5) Name Value Normal Range LA ESV SP 4CH (A/L) 25 ml - LA ESV SP 2CH (A/L) 58 ml - LA ESV BP (A/L) 41 ml - LA ESV BP (A/L) index 26 ml/m2 - LA ESV SP 4CH (MOD) 22 ml - LA ESV SP 2CH (MOD) 57 ml - Name Value Normal Range MV E-wave Vmax 0.81 m/sec - MV deceleration time 207.3 msec - MV A-wave Vmax 1.34 m/sec - MV E:A ratio 0.6 ratio - LV septal e' Vmax 0.07 m/sec - LV lateral e' Vmax 0.09 m/sec - LV E:e' septal ratio 11.57 ratio - LV E:e' lateral ratio 8.89 ratio - Name Value Normal Range AV Vmax 2.2 m/sec - AV VTI 37.2 cm - AV peak gradient 19.64 mmHg - AV mean gradient 9.39 mmHg - LVOT diameter 2 cm - LVOT Vmax 2.11 m/sec - LVOT VTI 36.31 cm - LVOT peak gradient 17.83 mmHg - LVOT mean gradient 8.3 mmHg - AR PHT 337.2 msec - AR peak gradient 67.6 mmHg - ANDREW Vmax 1.13 m/sec - Name Value Normal Range TR Vmax 3.1 m/sec - TR peak gradient 38 mmHg - RAP 3 mmHg - RVSP 41 mmHg - IVC diameter 1.5 cm - Name Value Normal Range PV Vmax 1.17 m/sec - PV peak gradient 5.51 mmHg -
[2018-03-07] MEDS: cefTRIAXone(*) 1 GM in NS 0.9% 50 ML* 50 ML IVPB SCH (16:32)
[2018-03-07] MEDS: Omeprazole CAP* 20 MG PO SCH (16:32)
--- NOTE | 2018-03-07 17:03 | PN ---
Subjective Date of Service: 03/07/18 Interval History: thinks her name is Dylan and that she lives underground. "Yelena Haddad" is another patient that is being treated for an ulcer they found. Denies other complaints. Hgb to 7.9. getting 1 more unit. thick brown sputum no reports of BMs or melena. brief SVT reported last night and pt transferred to [facility] from [facility]. Objective Active Medications: Albuterol (Ventolin 2.5 Mg/3 Ml Neb.Deepti*) 2.5 mg INH Q4H PRN PRN Reason: SOB/WHEEZING Atorvastatin Calcium (Lipitor*) 5 mg PO DAILY [facility] Last Admin: 03/07/18 09:11 Dose: 5 mg Device (Nicotine Mouth Piece*) 1 each INH .USE WITH NICOTROL PRN PRN Reason: CRAVING Ceftriaxone Sodium 1 gm/ (Sodium Chloride) 50 mls @ 200 mls/hr IVPB Q24H [facility] Last Admin: 03/07/18 16:32 Dose: 200 mls/hr Mometasone Furoate/Formoterol Fumar (Dulera 200/5 Mdi*) 2 puff INH BID [facility] Last Admin: 03/07/18 08:02 Dose: 2 puff Nicotine (Nicotine Inhaler*) 10 mg INH Q2H PRN PRN Reason: CRAVING Nicotine (Nicotine Patch 21 Mg/24 Hr*) 1 patch TRANSDERM DAILY@0800 [facility] Last Admin: 03/07/18 09:12 Dose: 1 patch Omeprazole (Prilosec Cap*) 20 mg PO 0730,1630 [facility] Last Admin: 03/07/18 16:32 Dose: 20 mg Ondansetron HCl (Zofran Inj*) 4 mg IV Q6H PRN PRN Reason: NAUSEA Paroxetine HCl (Paxil Tab*) 40 mg PO DAILY [facility] Last Admin: 03/07/18 09:11 Dose: 40 mg Pharmacy Profile Note (Nicotine Patch Removal Note*) 1 note FOLLOW UP 2100 [facility] Last Admin: 03/06/18 20:18 Dose: 1 note Potassium Chloride (Klor-Con Liquid*) 40 meq PO DAILY [facility] Last Admin: 03/07/18 09:12 Dose: 40 meq Tiotropium [place] (Spiriva Cap.Inh*) 1 cap INH DAILY [facility] Last Admin: 03/07/18 08:01 Dose: Not Given Vital Signs - 8 hr 03/07/18 03/07/18 03/07/18 12:00 13:58 15:43 Temperature 98.4 F 97.5 F 97.5 F Pulse Rate 96 112 Respiratory 24 Rate Blood Pressure 140/55 123/49 136/59 (mmHg) O2 Sat by Pulse 98 100 98 Oximetry Oxygen Devices in Use Now: Nasal Cannula Appearance: chronically ill appearing. cachexia. Eyes: No Scleral Icterus, PERRLA Ears/Nose/Mouth/Throat: NL Teeth, Lips, Gums, Mucous Membranes Moist Neck: NL Appearance and Movements; NL JVP, Trachea Midline Respiratory: Symmetrical Chest Expansion and Respiratory Effort, - - soft rhonchi, no wheezing or rales. Cardiovascular: NL Sounds; No Murmurs; No JVD, - - tachycardic regular. Abdominal: NL Sounds; No Tenderness; No Distention, No Hepatosplenomegaly - not oriented to person. Extremities: No Edema Skin: No Rash or Ulcers, No Nodules or Sclerosis Neurological: NL Sensation, - Nutrition: Taking PO's Result Diagrams: 03/07/18 04:32 03/07/18 04:32 Additional Lab and Data: Laboratory Results - last 24 hr 03/04/18 03/06/18 03/06/18 10:55 18:29 18:29 WBC 32.5 H RBC 2.44 L Hgb 7.2 L Hct 21 L MCV 88 MCH 29 MCHC 34 RDW 14 Plt Count 247 MPV 9.3 Neut % (Auto) 91.0 H Lymph % (Auto) 1.2 L [place] % (Auto) 7.5 H Eos % (Auto) 0 Baso % (Auto) 0.3 Absolute Neuts (auto) 29.6 H Absolute Lymphs (auto) 0.4 L Absolute Monos (auto) 2.5 H Absolute Eos (auto) 0 Absolute Basos (auto) 0.1 Absolute Nucleated RBC 0 Nucleated RBC % 0 Sodium 143 Potassium 4.3 Chloride 105 Carbon Dioxide 32 Anion Gap 6 BUN 37 H Creatinine 0.54 Est GFR ( Amer) 137.7 Est GFR (Non-Af Amer) 107.0 BUN/Creatinine Ratio 68.5 H Glucose 116 H Calcium 7.8 L Magnesium Total Bilirubin 0.90 AST 11 L ALT 11 Alkaline Phosphatase 34 Total Protein 4.2 L Albumin 2.2 L Globulin 2.0 Albumin/Globulin Ratio 1.1 Blood Type O Positive Antibody Screen Negative Crossmatch See Detail 03/07/18 03/07/18 03/07/18 04:32 04:32 04:32 WBC 24.9 H RBC 2.68 L Hgb 7.9 L Hct 24 L MCV 88 MCH 30 MCHC 34 RDW 15 Plt Count 236 MPV 9.1 Neut % (Auto) 96.6 H Lymph % (Auto) 0.7 L [place] % (Auto) 2.5 Eos % (Auto) 0 Baso % (Auto) 0.2 Absolute Neuts (auto) 24.0 H Absolute Lymphs (auto) 0.2 L Absolute Monos (auto) 0.6 Absolute Eos (auto) 0 Absolute Basos (auto) 0.1 Absolute Nucleated RBC 0 Nucleated RBC % 0 Sodium 142 Potassium 3.7 Chloride 109 Carbon Dioxide 31 Anion Gap 2 BUN 34 H Creatinine 0.58 Est GFR ( Amer) 126.8 Est GFR (Non-Af Amer) 98.6 BUN/Creatinine Ratio 58.6 H Glucose 140 H Calcium 7.6 L Magnesium 2.1 Total Bilirubin AST ALT Alkaline Phosphatase Total Protein Albumin Globulin Albumin/Globulin Ratio Blood Type O Positive Antibody Screen Negative Crossmatch See Detail Microbiology and Other Data: Microbiology 03/06/18 16:04 Gastric Antrum CLOtest - Final Assess/Plan/Problems-Billing Assessment: 87 yo female PMH severe COPD on chronic noctural O2 transfer from [facility] after melena, acute blood loss anemia. . Had been getting cftx->zosyn + high dose steroids for potential COPD exac/pna. EGD with numurouse erosions/uclear and 1 crater in duodenum with vissible vessel s/p clipped. Acute on Chronic Hypoxic Respiratory failure. Marked persistent leukocytosis. - Patient Problems (1) Melena Current Visit: Yes Status: Acute Code(s): K92.1 - MELENA SNOMED Code(s): 0979554 Comment: now s/p 6u pRBC EGD with erosions/ulcers, duodenal crater with vissible ulcer CBC q12 protonix 40mg po BID for 6 weeks then 40mg daily. s/p gtt. appreciate GI recs. CLOtest negative. in setting of a lot of steroids recently. (2) Acute and chronic respiratory failure Current Visit: Yes Status: Acute Code(s): J96.20 - ACUTE AND CHR RESP FAILURE, UNSP W HYPOXIA OR HYPERCAPNIA SNOMED Code(s): 90510883 Comment: Initial CXR at OSH read as potential CHF. inhalers changed to scheduled per family report uses O2 nocturnally, can't state how much ECHO: EF 65%, mild pHTN. on 03/05 got lasix 20mg IV x2 after blood and IVF after e/o volume overload cftx restarted after worsening hemodynamics( tachycardia) brown sputum reported. adding sputum cx (3) Leukocytosis Current Visit: Yes Status: Acute Code(s): D72.829 - ELEVATED WHITE BLOOD CELL COUNT, UNSPECIFIED SNOMED Code(s): 599125528 Comment: In 30s-40s since OSH admission. improved today to 24.9. attributed to steroids but leukomoid reaction or maligancy also in differential (4) COPD (chronic obstructive pulmonary disease) Current Visit: Yes Status: Acute Code(s): J44.9 - CHRONIC OBSTRUCTIVE PULMONARY DISEASE, UNSPECIFIED SNOMED Code(s): 77949223 Comment: dulera and spiriva started. continue albuterol nebs hold off on steroids in setting of GIB and long course at OSH. continue cftx (5) Smoker Current Visit: Yes Status: Acute Code(s): F17.200 - NICOTINE DEPENDENCE, UNSPECIFIED, UNCOMPLICATED SNOMED Code(s): 28271134 Comment: nicotine patch. Status and Disposition: medicine inpatient.
[2018-03-07] MEDS: Nicotine Patch Removal NOTE FOLLOW UP SCH (21:54)
--- NOTE | 2018-03-07 22:08 | PN ---
GASTROENTEROLOGY PROGRESS NOTE: DATE OF SERVICE: 03/07/18 HISTORY: Ms. Haddad underwent upper endoscopy yesterday which did reveal multiple gastric erosions, large hiatal hernia, and several large clean-based and cratered ulcers in the bulb and first portion of the duodenum. One visible vessel was clipped with hemostasis. The patient is continuing on IV pantoprazole at this time. She has received a total of 5 units of packed red blood cells with subsequent hematocrit most recently checked at 4 a.m. this morning of 24 and is scheduled to have a repeat hematocrit tomorrow morning. There have been no further signs of active bleeding. The patient has developed apparently more confusion. Biopsies were negative for H. pylori in the stomach. The patient may be converted to p.o. Protonix twice a day tomorrow. Hopefully , she is scheduled to receive 1 more unit of packed red blood cells and morning hematocrit is pending. As long as there are no more signs of active bleeding, the patient may likely be discharged when stable from a pulmonary standpoint. [id number]/[facility] #: [id number] [place]
[2018-03-08 05:24] LABS: Hematocrit 25 % (35-47); Hemoglobin 8.4 g/dl (12.0-16.0); Mean Corpuscular HGB Conc 34 g/dl (31-36); Mean Corpuscular Hemoglobin 29 pg (27-31); Mean Corpuscular Volume 86 fL (80-97); Mean Platelet Volume 8.5 um3 (7.4-10.4); Platelet Count 267 10^3/ul (150-450); Red Blood Count 2.89 10^6/ul (4.0-5.4); Red Cell Distribution Width 17 % (10.5-15)
[2018-03-08 05:27] LABS: ABS Basophils 0 10^3/ul (0-0.2); ABS Eosinophils 0.1 10^3/ul (0-0.6); ABS Lymphocytes 0.6 10^3/ul (1.0-4.8); ABS Neutrophils 23.4 10^3/ul (1.5-7.7); ABS Nucleated RBC 0 10^3/ul; Eosinophil % 0.2 % (0-6); Lymphocyte % 2.1 % (25-47); Nucleated Red Blood Cells % 0
[2018-03-08 05:31] LABS: EGFR Non-African American 104.8 (>60)
[2018-03-08] MEDS: Tiotropium CAP.INH* CAP.INH/18 MCG (USE ORDER SET !) INH SCH (07:37)
[2018-03-08] MEDS: Mometasone/Formoter 200/5 MDI INH SCH ×2 (07:37→20:04)
[2018-03-08] MEDS: Omeprazole CAP* 20 MG PO SCH ×2 (08:31→17:05)
[2018-03-08] MEDS: Nicotine PATCH 21 MG/24 HR* PATCH TRANSDERM SCH (08:31)
[2018-03-08] MEDS: PARoxetine HCL TAB* 40 MG PO SCH (08:31)
[2018-03-08] MEDS: Atorvastatin* 10 MG TAB PO SCH (08:31)
[2018-03-08] MEDS ORDERED: Potassium Chloride LIQUID* 20 MEQ PACKET PO ONE (09:00)
--- NOTE | 2018-03-08 16:46 | PN ---
Subjective Date of Service: 03/08/18 Interval History: no longer disoriented but has lost 1 hearing aid and other battery may be failing. no melena or other BM Hgb 8.4 bloating sensation tachycardic, especially when ambulating. weaned to room air. Objective Active Medications: Albuterol (Ventolin 2.5 Mg/3 Ml Neb.Deepti*) 2.5 mg INH Q4H PRN PRN Reason: SOB/WHEEZING Atorvastatin Calcium (Lipitor*) 5 mg PO DAILY [facility] Last Admin: 03/08/18 08:31 Dose: 5 mg Device (Nicotine Mouth Piece*) 1 each INH .USE WITH NICOTROL PRN PRN Reason: CRAVING Ceftriaxone Sodium 1 gm/ (Sodium Chloride) 50 mls @ 200 mls/hr IVPB Q24H [facility] Last Admin: 03/07/18 16:32 Dose: 200 mls/hr Mometasone Furoate/Formoterol Fumar (Dulera 200/5 Mdi*) 2 puff INH BID [facility] Last Admin: 03/08/18 07:37 Dose: 2 puff Nicotine (Nicotine Inhaler*) 10 mg INH Q2H PRN PRN Reason: CRAVING Nicotine (Nicotine Patch 21 Mg/24 Hr*) 1 patch TRANSDERM DAILY@0800 [facility] Last Admin: 03/08/18 08:31 Dose: 1 patch Omeprazole (Prilosec Cap*) 20 mg PO 0730,1630 [facility] Last Admin: 03/08/18 08:31 Dose: 20 mg Ondansetron HCl (Zofran Inj*) 4 mg IV Q6H PRN PRN Reason: NAUSEA Paroxetine HCl (Paxil Tab*) 40 mg PO DAILY [facility] Last Admin: 03/08/18 08:31 Dose: 40 mg Pharmacy Profile Note (Nicotine Patch Removal Note*) 1 note FOLLOW UP 2100 [facility] Last Admin: 03/07/18 21:54 Dose: 1 note Tiotropium [place] (Spiriva Cap.Inh*) 1 cap INH DAILY [facility] Last Admin: 03/08/18 07:37 Dose: 1 cap Vital Signs - 8 hr 03/08/18 03/08/18 11:41 15:52 Temperature 98.9 F 97.8 F Pulse Rate 127 117 Respiratory 22 18 Rate Blood Pressure 133/60 152/70 (mmHg) O2 Sat by Pulse 97 93 Oximetry Oxygen Devices in Use Now: Nasal Cannula Appearance: NAD but chronically ill appearing. Eyes: No Scleral Icterus, PERRLA Ears/Nose/Mouth/Throat: NL Teeth, Lips, Gums Neck: NL Appearance and Movements; NL JVP, Trachea Midline Respiratory: Symmetrical Chest Expansion and Respiratory Effort, Clear to Auscultation Cardiovascular: NL Sounds; No Murmurs; No JVD, - - tachycardic Abdominal: NL Sounds; No Tenderness; No Distention Extremities: No Edema, No Clubbing, Cyanosis Skin: No Rash or Ulcers, No Nodules or Sclerosis Neurological: Alert and Oriented x 3, NL Sensation, NL Muscle Strength and Tone Result Diagrams: 03/08/18 04:46 03/08/18 04:46 Additional Lab and Data: Laboratory Results - last 24 hr 03/08/18 03/08/18 04:46 04:46 WBC 26.0 H RBC 2.89 L Hgb 8.4 L Hct 25 L MCV 86 MCH 29 MCHC 34 RDW 17 H Plt Count 267 MPV 8.5 Neut % (Auto) 90.0 H Lymph % (Auto) 2.1 L [place] % (Auto) 7.5 H Eos % (Auto) 0.2 Baso % (Auto) 0.2 Absolute Neuts (auto) 23.4 H Absolute Lymphs (auto) 0.6 L Absolute Monos (auto) 2.0 H Absolute Eos (auto) 0.1 Absolute Basos (auto) 0 Absolute Nucleated RBC 0 Nucleated RBC % 0 Sodium 144 Potassium 3.7 Chloride 110 Carbon Dioxide 32 Anion Gap 2 BUN 35 H Creatinine 0.55 Est GFR ( Amer) 134.8 Est GFR (Non-Af Amer) 104.8 BUN/Creatinine Ratio 63.6 H Glucose 93 Calcium 7.6 L Magnesium 2.0 Microbiology and Other Data: Microbiology 03/06/18 16:04 Gastric Antrum CLOtest - Final Assess/Plan/Problems-Billing Assessment: 87 yo female PMH severe COPD on chronic noctural O2 transfer from [facility] after melena, acute blood loss anemia. . Had been getting cftx->zosyn + really high dose steroids (solumedrol 125mg q8!) for potential COPD exac/pna. EGD with numurous erosions/ulcers and 1 crater in duodenum with vissible vessel s/p clipped. Acute on Chronic Hypoxic Respiratory failure (resolved). Improving leukocytosis but still tachycardic. s/p 6 u pRBC total. - Patient Problems (1) Melena Current Visit: Yes Status: Acute Code(s): K92.1 - MELENA SNOMED Code(s): 5741704 Comment: now s/p 6u pRBC EGD with erosions/ulcers, duodenal crater with vissible ulcer CBC daily protonix 40mg po BID for 6 weeks then 40mg daily. s/p gtt. appreciate GI recs. CLOtest negative. in setting of a lot of steroids recently. (2) Acute and chronic respiratory failure Current Visit: Yes Status: Acute Code(s): J96.20 - ACUTE AND CHR RESP FAILURE, UNSP W HYPOXIA OR HYPERCAPNIA SNOMED Code(s): 74208086 Comment: Initial CXR at OSH read as potential CHF. inhalers changed to scheduled per family report uses O2 nocturnally, can't state how much ECHO: EF 65%, mild pHTN. on 03/05 got lasix 20mg IV x2 after blood and IVF after e/o volume overload cftx restarted after worsening hemodynamics( tachycardia) brown sputum reported. adding sputum cx (3) Leukocytosis Current Visit: Yes Status: Acute Code(s): D72.829 - ELEVATED WHITE BLOOD CELL COUNT, UNSPECIFIED SNOMED Code(s): 412527635 Comment: In 30s-40s since OSH admission. improved today to 26.0. attributed to steroids (she was receiving solumedrol 125mg q8 for several days as OSH!) but leukomoid reaction or maligancy also in differential (4) COPD (chronic obstructive pulmonary disease) Current Visit: Yes Status: Acute Code(s): J44.9 - CHRONIC OBSTRUCTIVE PULMONARY DISEASE, UNSPECIFIED SNOMED Code(s): 74874234 Comment: dulera and spiriva started. continue albuterol nebs hold off on steroids in setting of GIB and long course at OSH. continue cftx (5) Smoker Current Visit: Yes Status: Acute Code(s): F17.200 - NICOTINE DEPENDENCE, UNSPECIFIED, UNCOMPLICATED SNOMED Code(s): 90401349 Comment: nicotine patch. Status and Disposition: medicine inpatient.
[2018-03-08] MEDS: cefTRIAXone(*) 1 GM in NS 0.9% 50 ML* 50 ML IVPB SCH (17:05)
[2018-03-08] MEDS: Albuterol 2.5 MG/3 ML NEB.SOL* (0.083%) INH SCH (20:04)
[2018-03-08] MEDS: Nicotine Patch Removal NOTE FOLLOW UP SCH (20:49)
[2018-03-09] MEDS: Albuterol 2.5 MG/3 ML NEB.SOL* (0.083%) INH SCH ×2 (00:47→07:41)
[2018-03-09 05:36] LABS: ABS Basophils 0 10^3/ul (0-0.2); ABS Eosinophils 0.1 10^3/ul (0-0.6); ABS Lymphocytes 0.5 10^3/ul (1.0-4.8); ABS Monocytes 1.4 10^3/ul (0-0.8); ABS Neutrophils 16.7 10^3/ul (1.5-7.7); ABS Nucleated RBC 0 10^3/ul; Eosinophil % 0.5 % (0-6); Hematocrit 21 % (35-47); Hemoglobin 7.1 g/dl (12.0-16.0); Lymphocyte % 2.6 % (25-47); Mean Corpuscular HGB Conc 33 g/dl (31-36); Mean Corpuscular Hemoglobin 29 pg (27-31); Mean Corpuscular Volume 87 fL (80-97); Mean Platelet Volume 8.2 um3 (7.4-10.4); Nucleated Red Blood Cells % 0.1; Platelet Count 252 10^3/ul (150-450); Red Blood Count 2.46 10^6/ul (4.0-5.4); Red Cell Distribution Width 17 % (10.5-15); White Blood Count 18.6 10^3/ul (3.5-10.8)
[2018-03-09 05:49] LABS: EGFR Non-African American 125.6 (>60)
[2018-03-09] MEDS: Tiotropium CAP.INH* CAP.INH/18 MCG (USE ORDER SET !) INH SCH (07:41)
[2018-03-09] MEDS: Mometasone/Formoter 200/5 MDI INH SCH ×2 (07:41→19:58)
[2018-03-09] MEDS: Atorvastatin* 10 MG TAB PO SCH (08:42)
[2018-03-09] MEDS: Omeprazole CAP* 20 MG PO SCH ×2 (08:42→16:55)
[2018-03-09] MEDS: PARoxetine HCL TAB* 40 MG PO SCH (08:42)
[2018-03-09] MEDS: Nicotine PATCH 21 MG/24 HR* PATCH TRANSDERM SCH (08:43)
[2018-03-09] MEDS: Polyethylene Glycol 3350* 17 GM PACKET PO PRN (16:55)
[2018-03-09] MEDS: Docusate CAP* 100 MG PO PRN (16:55)
--- NOTE | 2018-03-09 17:18 | PN ---
Subjective Date of Service: 03/09/18 Interval History: Hgb to 7.1 from 8.4. HR had improved but then back up to 120s this AM (seemed to worsen after albuterol neb which was changed back to prn) 1u prbc given. pt was anxious and depressed in AM as embarassed that she was incontinent of urine in bed. leukocytosis improving still. Room air still. passing flatus, no abdominal pain. no BM Objective Active Medications: Albuterol (Ventolin 2.5 Mg/3 Ml Neb.Deepti*) 2.5 mg INH [id number] AWAKE PRN PRN Reason: SHORTNESS OF BREATH Atorvastatin Calcium (Lipitor*) 5 mg PO DAILY [facility] Last Admin: 03/09/18 08:42 Dose: 5 mg Device (Nicotine Mouth Piece*) 1 each INH .USE WITH NICOTROL PRN PRN Reason: CRAVING Docusate Sodium (Colace Cap*) 100 mg PO DAILY PRN PRN Reason: CONSTIPATION Last Admin: 03/09/18 16:55 Dose: 100 mg Ceftriaxone Sodium 1 gm/ (Sodium Chloride) 50 mls @ 200 mls/hr IVPB Q24H [facility] Last Admin: 03/08/18 17:05 Dose: 200 mls/hr Mometasone Furoate/Formoterol Fumar (Dulera 200/5 Mdi*) 2 puff INH BID [facility] Last Admin: 03/09/18 07:41 Dose: 2 puff Nicotine (Nicotine Inhaler*) 10 mg INH Q2H PRN PRN Reason: CRAVING Nicotine (Nicotine Patch 21 Mg/24 Hr*) 1 patch TRANSDERM DAILY@0800 [facility] Last Admin: 03/09/18 08:43 Dose: 1 patch Omeprazole (Prilosec Cap*) 20 mg PO 0730,1630 [facility] Last Admin: 03/09/18 16:55 Dose: 20 mg Ondansetron HCl (Zofran Inj*) 4 mg IV Q6H PRN PRN Reason: NAUSEA Paroxetine HCl (Paxil Tab*) 40 mg PO DAILY [facility] Last Admin: 03/09/18 08:42 Dose: 40 mg Pharmacy Profile Note (Nicotine Patch Removal Note*) 1 note FOLLOW UP 2100 [facility] Last Admin: 03/08/18 20:49 Dose: 1 note Polyethylene Glycol/Electrolytes (Miralax*) 17 gm PO DAILY PRN PRN Reason: CONSTIPATION Last Admin: 03/09/18 16:55 Dose: 17 gm Tiotropium [place] (Spiriva Cap.Inh*) 1 cap INH DAILY [facility] Last Admin: 03/09/18 07:41 Dose: 1 cap Vital Signs - 8 hr 03/09/18 03/09/18 03/09/18 10:12 10:27 11:19 Temperature 97.9 F 97.5 F 98.6 F Pulse Rate 106 104 107 Respiratory 24 24 40 Rate Blood Pressure 120/52 117/42 112/57 (mmHg) O2 Sat by Pulse 94 Oximetry 03/09/18 13:38 Temperature 97.6 F Pulse Rate 116 Respiratory 25 Rate Blood Pressure 104/52 (mmHg) O2 Sat by Pulse 96 Oximetry Oxygen Devices in Use Now: None Appearance: Anxious and tearful but improved later watching TV Eyes: No Scleral Icterus Ears/Nose/Mouth/Throat: NL Teeth, Lips, Gums Neck: NL Appearance and Movements; NL JVP, Trachea Midline Respiratory: Symmetrical Chest Expansion and Respiratory Effort, - - coarse breath sounds diffusely with some upper airway component. no wheezing or rales Cardiovascular: NL Sounds; No Murmurs; No JVD, - - tachycardic regular. Extremities: No Edema Skin: No Rash or Ulcers, No Nodules or Sclerosis Neurological: Alert and Oriented x 3, NL Sensation, NL Muscle Strength and Tone Nutrition: Taking PO's Result Diagrams: 03/09/18 05:12 03/09/18 05:12 Additional Lab and Data: Laboratory Results - last 24 hr 03/07/18 03/09/18 03/09/18 04:32 05:12 05:12 WBC 18.6 H RBC 2.46 L Hgb 7.1 L Hct 21 L MCV 87 MCH 29 MCHC 33 RDW 17 H Plt Count 252 MPV 8.2 Neut % (Auto) 89.6 H Lymph % (Auto) 2.6 L [place] % (Auto) 7.3 H Eos % (Auto) 0.5 Baso % (Auto) 0 Absolute Neuts (auto) 16.7 H Absolute Lymphs (auto) 0.5 L Absolute Monos (auto) 1.4 H Absolute Eos (auto) 0.1 Absolute Basos (auto) 0 Absolute Nucleated RBC 0 Nucleated RBC % 0.1 Sodium 141 Potassium 3.8 Chloride 107 Carbon Dioxide 29 Anion Gap 5 BUN 31 H Creatinine 0.47 L Est GFR ( Amer) 161.6 Est GFR (Non-Af Amer) 125.6 BUN/Creatinine Ratio 66.0 H Glucose 95 Calcium 7.3 L Magnesium 1.9 Blood Type O Positive Antibody Screen Negative Crossmatch See Detail Microbiology and Other Data: Microbiology 03/06/18 16:04 Gastric Antrum CLOtest - Final Assess/Plan/Problems-Billing Assessment: 87 yo female PMH severe COPD on chronic noctural O2 transfer from [facility] after melena, acute blood loss anemia. Had been getting cftx->zosyn + really high dose steroids (solumedrol 125mg q8!!)) for several days at [facility] for potential COPD exac/pna. EGD with numurous erosions/ulcers and 1 crater in duodenum with visible vessel s/p clipped. Acute on Chronic Hypoxic Respiratory failure (resolved). Improving leukocytosis but still tachycardic. s/p 7 u pRBC total. - Patient Problems (1) Melena Current Visit: Yes Status: Acute Code(s): K92.1 - MELENA SNOMED Code(s): 3017829 Comment: now s/p 7u pRBC EGD with erosions/ulcers, duodenal crater with vissible ulcer CBC daily protonix 40mg po BID for 6 weeks then 40mg daily. s/p gtt. appreciate GI recs. CLOtest negative. in setting of a lot of steroids recently. denies NSAID use. (2) Acute and chronic respiratory failure Current Visit: Yes Status: Acute Code(s): J96.20 - ACUTE AND CHR RESP FAILURE, UNSP W HYPOXIA OR HYPERCAPNIA SNOMED Code(s): 68249943 Comment: much improved 03/08, room air. breathing best she has in years while off cigarettes intermittently anxious. Initial CXR at OSH read as potential CHF. inhalers changed to scheduled per family report uses O2 nocturnally, can't state how much (2L per daughter in law) ECHO: EF 65%, mild pHTN. on 03/05 got lasix 20mg IV x2 after blood and IVF after e/o volume overload continue cftx for COPD with productive cough and leukocytosis. finally got sputum today. (3) Leukocytosis Current Visit: Yes Status: Acute Code(s): D72.829 - ELEVATED WHITE BLOOD CELL COUNT, UNSPECIFIED SNOMED Code(s): 968398453 Comment: In 30s-40s since OSH admission. improved today to 18.6. attributed to steroids (she was receiving solumedrol 125mg q8 for several days as OSH!) but leukomoid reaction or maligancy also in differential (4) COPD (chronic obstructive pulmonary disease) Current Visit: Yes Status: Acute Code(s): J44.9 - CHRONIC OBSTRUCTIVE PULMONARY DISEASE, UNSPECIFIED SNOMED Code(s): 54725787 Comment: dulera and spiriva started here and continued. continue albuterol nebs, switch back to prn instead of the four times a day standing she was taking at home. hold off on steroids in setting of GIB and long course at OSH. continue cftx (5) Smoker Current Visit: Yes Status: Acute Code(s): F17.200 - NICOTINE DEPENDENCE, UNSPECIFIED, UNCOMPLICATED SNOMED Code(s): 86649724 Comment: nicotine patch. Status and Disposition: medicine inpatient. Continued anemia and tachycardia.
[2018-03-09] MEDS: cefTRIAXone(*) 1 GM in NS 0.9% 50 ML* 50 ML IVPB SCH (17:26)
[2018-03-09] MEDS: Magnesium Oxide TAB* 400 MG PO SCH (18:19)
[2018-03-09] MEDS: Nicotine Patch Removal NOTE FOLLOW UP SCH (21:38)
[2018-03-10 05:25] LABS: ABS Basophils 0.1 10^3/ul (0-0.2); ABS Eosinophils 0.3 10^3/ul (0-0.6); ABS Lymphocytes 0.5 10^3/ul (1.0-4.8); ABS Monocytes 1.1 10^3/ul (0-0.8); ABS Neutrophils 16.7 10^3/ul (1.5-7.7); ABS Nucleated RBC 0 10^3/ul; Eosinophil % 1.9 % (0-6); Hematocrit 23 % (35-47); Hemoglobin 7.4 g/dl (12.0-16.0); Lymphocyte % 2.6 % (25-47); Mean Corpuscular HGB Conc 33 g/dl (31-36); Mean Corpuscular Hemoglobin 28 pg (27-31); Mean Corpuscular Volume 86 fL (80-97); Mean Platelet Volume 8.3 um3 (7.4-10.4); Nucleated Red Blood Cells % 0; Platelet Count 242 10^3/ul (150-450); Red Blood Count 2.63 10^6/ul (4.0-5.4); Red Cell Distribution Width 18 % (10.5-15); White Blood Count 18.8 10^3/ul (3.5-10.8)
[2018-03-10 05:40] LABS: EGFR Non-African American 119.7 (>60)
[2018-03-10] MEDS: Tiotropium CAP.INH* CAP.INH/18 MCG (USE ORDER SET !) INH SCH (07:09)
[2018-03-10] MEDS: Mometasone/Formoter 200/5 MDI INH SCH ×2 (07:14→20:03)
[2018-03-10] MEDS: Nicotine PATCH 21 MG/24 HR* PATCH TRANSDERM SCH (08:41)
[2018-03-10] MEDS: Magnesium Oxide TAB* 400 MG PO SCH (08:41)
[2018-03-10] MEDS: Omeprazole CAP* 20 MG PO SCH ×2 (08:42→17:14)
[2018-03-10] MEDS: Atorvastatin* 10 MG TAB PO SCH (08:42)
[2018-03-10] MEDS: PARoxetine HCL TAB* 40 MG PO SCH (08:42)
--- NOTE | 2018-03-10 13:36 | PN ---
Subjective Date of Service: 03/10/18 Interval History: pt reports she is frustrated with being in the hospital. Reports feeling " winded really easily", no CP. Denies abdominal pain. No noted dark or bloody stools. Reports good appetite Objective Active Medications: Albuterol (Ventolin 2.5 Mg/3 Ml Neb.Deepti*) 2.5 mg INH [id number] AWAKE PRN PRN Reason: SHORTNESS OF BREATH Atorvastatin Calcium (Lipitor*) 5 mg PO DAILY [facility] Last Admin: 03/10/18 08:42 Dose: 5 mg Device (Nicotine Mouth Piece*) 1 each INH .USE WITH NICOTROL PRN PRN Reason: CRAVING Docusate Sodium (Colace Cap*) 100 mg PO DAILY PRN PRN Reason: CONSTIPATION Last Admin: 03/09/18 16:55 Dose: 100 mg Ceftriaxone Sodium 1 gm/ (Sodium Chloride) 50 mls @ 200 mls/hr IVPB Q24H [facility] Last Admin: 03/09/18 17:26 Dose: 200 mls/hr Magnesium Oxide (Magox 400 Tab*) 400 mg PO DAILY [facility] Last Admin: 03/10/18 08:41 Dose: 400 mg Mometasone Furoate/Formoterol Fumar (Dulera 200/5 Mdi*) 2 puff INH BID [facility] Last Admin: 03/10/18 07:14 Dose: 2 puff Nicotine (Nicotine Inhaler*) 10 mg INH Q2H PRN PRN Reason: CRAVING Nicotine (Nicotine Patch 21 Mg/24 Hr*) 1 patch TRANSDERM DAILY@0800 [facility] Last Admin: 03/10/18 08:41 Dose: 1 patch Omeprazole (Prilosec Cap*) 20 mg PO 0730,1630 [facility] Last Admin: 03/10/18 08:42 Dose: 20 mg Ondansetron HCl (Zofran Inj*) 4 mg IV Q6H PRN PRN Reason: NAUSEA Paroxetine HCl (Paxil Tab*) 40 mg PO DAILY [facility] Last Admin: 03/10/18 08:42 Dose: 40 mg Pharmacy Profile Note (Nicotine Patch Removal Note*) 1 note FOLLOW UP 2100 [facility] Last Admin: 03/09/18 21:38 Dose: 1 note Polyethylene Glycol/Electrolytes (Miralax*) 17 gm PO DAILY PRN PRN Reason: CONSTIPATION Last Admin: 03/09/18 16:55 Dose: 17 gm Tiotropium [place] (Spiriva Cap.Inh*) 1 cap INH DAILY [facility] Last Admin: 03/10/18 07:09 Dose: 1 cap Vital Signs - 8 hr 03/10/18 03/10/18 03/10/18 07:05 07:38 08:00 Temperature 98.4 F Pulse Rate 80 98 Respiratory 32 22 Rate Blood Pressure 107/55 (mmHg) O2 Sat by Pulse 96 96 Oximetry 03/10/18 11:28 Temperature 98.7 F Pulse Rate 120 Respiratory 38 Rate Blood Pressure 125/57 (mmHg) O2 Sat by Pulse 100 Oximetry Oxygen Devices in Use Now: None Appearance: 87 yo female sitting up in bed in NAD A+O x3 Eyes: No Scleral Icterus, PERRLA Ears/Nose/Mouth/Throat: Mucous Membranes Moist Respiratory: Symmetrical Chest Expansion and Respiratory Effort, Clear to Auscultation Cardiovascular: NL Sounds; No Murmurs; No JVD, RRR, No Edema Abdominal: NL Sounds; No Tenderness; No Distention Extremities: No Edema, No Clubbing, Cyanosis Skin: No Rash or Ulcers, No Nodules or Sclerosis Neurological: Alert and Oriented x 3, NL Sensation, NL Muscle Strength and Tone Lines/Tubes/Other Access: Clean, Dry and Intact Peripheral IV Nutrition: Taking PO's Result Diagrams: 03/10/18 05:12 03/10/18 05:12 Additional Lab and Data: Laboratory Results - last 24 hr 03/07/18 03/09/18 03/09/18 04:32 05:12 05:12 WBC 18.6 H RBC 2.46 L Hgb 7.1 L Hct 21 L MCV 87 MCH 29 MCHC 33 RDW 17 H Plt Count 252 MPV 8.2 Neut % (Auto) 89.6 H Lymph % (Auto) 2.6 L [place] % (Auto) 7.3 H Eos % (Auto) 0.5 Baso % (Auto) 0 Absolute Neuts (auto) 16.7 H Absolute Lymphs (auto) 0.5 L Absolute Monos (auto) 1.4 H Absolute Eos (auto) 0.1 Absolute Basos (auto) 0 Absolute Nucleated RBC 0 Nucleated RBC % 0.1 Sodium 141 Potassium 3.8 Chloride 107 Carbon Dioxide 29 Anion Gap 5 BUN 31 H Creatinine 0.47 L Est GFR ( Amer) 161.6 Est GFR (Non-Af Amer) 125.6 BUN/Creatinine Ratio 66.0 H Glucose 95 Calcium 7.3 L Magnesium 1.9 Blood Type O Positive Antibody Screen Negative Crossmatch See Detail Microbiology and Other Data: Microbiology 03/06/18 16:04 Gastric Antrum CLOtest - Final Assess/Plan/Problems-Billing Assessment: 87 yo female PMH severe COPD on chronic noctural O2 transfer from [facility] after melena, acute blood loss anemia. Had been getting cftx->zosyn + really high dose steroids (solumedrol 125mg q8!!)) for several days at [place] for potential COPD exac/pna. EGD with numurous erosions/ulcers and 1 crater in duodenum with visible vessel s/p clipped. Acute on Chronic Hypoxic Respiratory failure (resolved). Improving leukocytosis but still tachycardic. s/p 7 u pRBC total. - Patient Problems (1) Melena Comment: now s/p 7u pRBC - continues to be anemic and has continued SOB ( multifactorial with COPD) and tachycardia - plan to give 1 unit PRBC EGD with erosions/ulcers, duodenal crater with vissible ulcer CBC daily protonix 40mg po BID for 6 weeks then 40mg daily. s/p gtt. appreciate GI recs. CLOtest negative. in setting of a lot of steroids recently. denies NSAID use. (2) Acute and chronic respiratory failure Comment: continues to improve, on room air. Initial CXR at OSH read as potential CHF. inhalers changed to scheduled per family report uses O2 nocturnally, can't state how much (2L per daughter in law) ECHO: EF 65%, mild pHTN. on 03/05 got lasix 20mg IV x2 after blood and IVF after e/o volume overload continue cftx for COPD with productive cough and leukocytosis. (3) COPD (chronic obstructive pulmonary disease) Comment: dulera and spiriva started here and should be continued. continue albuterol nebs, switch back to prn instead of the four times a day standing she was taking at home. hold off on steroids in setting of GIB and long course at OSH. continue cftx sputum cx pending (4) Leukocytosis Comment: In 30s-40s since OSH admission, now trending down. attributed to steroids (she was receiving solumedrol 125mg q8 for several days as OSH!) but leukomoid reaction or maligancy also in differential (5) Smoker Comment: nicotine patch. Status and Disposition: medicine inpatient. Continued anemia and tachycardia.
[2018-03-10] MEDS: cefTRIAXone(*) 1 GM in NS 0.9% 50 ML* 50 ML IVPB SCH (17:19)
[2018-03-10] MEDS: Albuterol 2.5 MG/3 ML NEB.SOL* (0.083%) INH PRN (20:03)
[2018-03-10] MEDS: Docusate CAP* 100 MG PO PRN (20:11)
[2018-03-10] MEDS: Polyethylene Glycol 3350* 17 GM PACKET PO PRN (20:11)
[2018-03-10] MEDS: Nicotine Patch Removal NOTE FOLLOW UP SCH (22:28)
[2018-03-11 05:49] LABS: ABS Basophils 0.1 10^3/ul (0-0.2); ABS Eosinophils 0.3 10^3/ul (0-0.6); ABS Lymphocytes 0.4 10^3/ul (1.0-4.8); ABS Monocytes 0.9 10^3/ul (0-0.8); ABS Neutrophils 16.8 10^3/ul (1.5-7.7); ABS Nucleated RBC 0 10^3/ul; Eosinophil % 1.5 % (0-6); Hematocrit 22 % (35-47); Hemoglobin 7.4 g/dl (12.0-16.0); Mean Corpuscular HGB Conc 34 g/dl (31-36); Mean Corpuscular Hemoglobin 29 pg (27-31); Mean Corpuscular Volume 85 fL (80-97); Mean Platelet Volume 8.2 um3 (7.4-10.4); Nucleated Red Blood Cells % 0; Platelet Count 217 10^3/ul (150-450); Red Cell Distribution Width 17 % (10.5-15); White Blood Count 18.4 10^3/ul (3.5-10.8)
[2018-03-11 06:04] LABS: EGFR Non-African American 132.1 (>60)
[2018-03-11] MEDS: Tiotropium CAP.INH* CAP.INH/18 MCG (USE ORDER SET !) INH SCH (07:37)
[2018-03-11] MEDS: Mometasone/Formoter 200/5 MDI INH SCH ×2 (07:37→19:25)
[2018-03-11] MEDS: Atorvastatin* 10 MG TAB PO SCH (08:12)
[2018-03-11] MEDS: PARoxetine HCL TAB* 40 MG PO SCH (08:12)
[2018-03-11] MEDS: Magnesium Oxide TAB* 400 MG PO SCH (08:13)
[2018-03-11] MEDS: Omeprazole CAP* 20 MG PO SCH ×2 (08:13→16:42)
[2018-03-11] MEDS: Nicotine PATCH 21 MG/24 HR* PATCH TRANSDERM SCH (08:14)
[2018-03-11] MEDS: cefTRIAXone(*) 1 GM in NS 0.9% 50 ML* 50 ML IVPB SCH (17:28)
--- NOTE | 2018-03-11 18:52 | PN ---
Subjective Date of Service: 03/11/18 Interval History: Patient still with SOB and tachycardia. Hgb remains low. Can go back to [facility] [address] but hgb is not >8 as yet. Denies any further symptoms, or complaints. Objective Active Medications: Albuterol (Ventolin 2.5 Mg/3 Ml Neb.Deepti*) 2.5 mg INH RT.[id number] AWAKE PRN PRN Reason: SHORTNESS OF BREATH Last Admin: 03/10/18 20:03 Dose: 2.5 mg Atorvastatin Calcium (Lipitor*) 5 mg PO DAILY [facility] Last Admin: 03/11/18 08:12 Dose: 5 mg Device (Nicotine Mouth Piece*) 1 each INH .USE WITH NICOTROL PRN PRN Reason: CRAVING Docusate Sodium (Colace Cap*) 100 mg PO DAILY PRN PRN Reason: CONSTIPATION Last Admin: 03/10/18 20:11 Dose: 100 mg Ceftriaxone Sodium 1 gm/ (Sodium Chloride) 50 mls @ 200 mls/hr IVPB Q24H [facility] Last Admin: 03/11/18 17:28 Dose: 200 mls/hr Magnesium Oxide (Magox 400 Tab*) 400 mg PO DAILY [facility] Last Admin: 03/11/18 08:13 Dose: 400 mg Mometasone Furoate/Formoterol Fumar (Dulera 200/5 Mdi*) 2 puff INH BID [facility] Last Admin: 03/11/18 07:37 Dose: 2 puff Nicotine (Nicotine Inhaler*) 10 mg INH Q2H PRN PRN Reason: CRAVING Nicotine (Nicotine Patch 21 Mg/24 Hr*) 1 patch TRANSDERM DAILY@0800 [facility] Last Admin: 03/11/18 08:14 Dose: 1 patch Omeprazole (Prilosec Cap*) 20 mg PO 0730,1630 [facility] Last Admin: 03/11/18 16:42 Dose: 20 mg Ondansetron HCl (Zofran Inj*) 4 mg IV Q6H PRN PRN Reason: NAUSEA Paroxetine HCl (Paxil Tab*) 40 mg PO DAILY [facility] Last Admin: 03/11/18 08:12 Dose: 40 mg Pharmacy Profile Note (Nicotine Patch Removal Note*) 1 note FOLLOW UP 2100 [facility] Last Admin: 03/10/18 22:28 Dose: 1 note Polyethylene Glycol/Electrolytes (Miralax*) 17 gm PO DAILY PRN PRN Reason: CONSTIPATION Last Admin: 03/10/18 20:11 Dose: 17 gm Tiotropium [place] (Spiriva Cap.Inh*) 1 cap INH DAILY [facility] Last Admin: 03/11/18 07:37 Dose: 1 cap Vital Signs - 8 hr 03/11/18 03/11/18 03/11/18 11:32 12:30 13:00 Temperature 97.5 F 97.7 F 97.2 F Pulse Rate 93 105 116 Respiratory 36 32 32 Rate Blood Pressure 130/56 100/83 118/62 (mmHg) O2 Sat by Pulse 100 97 96 Oximetry 03/11/18 03/11/18 03/11/18 14:45 15:31 16:00 Temperature 97.8 F 99.0 F Pulse Rate 112 111 Respiratory 34 Rate Blood Pressure 110/60 107/45 (mmHg) O2 Sat by Pulse 97 99 97 Oximetry 03/11/18 16:04 Temperature Pulse Rate Respiratory Rate Blood Pressure 102/60 (mmHg) O2 Sat by Pulse Oximetry Oxygen Devices in Use Now: Nasal Cannula Appearance: Alert, NAD Eyes: No Scleral Icterus, PERRLA Ears/Nose/Mouth/Throat: Mucous Membranes Moist Neck: Trachea Midline Respiratory: Symmetrical Chest Expansion and Respiratory Effort, Clear to Auscultation Cardiovascular: NL Sounds; No Murmurs; No JVD, RRR - periods of tachycardia Neurological: Alert and Oriented x 3 Nutrition: Taking PO's Result Diagrams: 03/11/18 05:35 03/11/18 05:35 Additional Lab and Data: Laboratory Results - last 24 hr 03/07/18 03/09/18 03/09/18 04:32 05:12 05:12 WBC 18.6 H RBC 2.46 L Hgb 7.1 L Hct 21 L MCV 87 MCH 29 MCHC 33 RDW 17 H Plt Count 252 MPV 8.2 Neut % (Auto) 89.6 H Lymph % (Auto) 2.6 L [place] % (Auto) 7.3 H Eos % (Auto) 0.5 Baso % (Auto) 0 Absolute Neuts (auto) 16.7 H Absolute Lymphs (auto) 0.5 L Absolute Monos (auto) 1.4 H Absolute Eos (auto) 0.1 Absolute Basos (auto) 0 Absolute Nucleated RBC 0 Nucleated RBC % 0.1 Sodium 141 Potassium 3.8 Chloride 107 Carbon Dioxide 29 Anion Gap 5 BUN 31 H Creatinine 0.47 L Est GFR ( Amer) 161.6 Est GFR (Non-Af Amer) 125.6 BUN/Creatinine Ratio 66.0 H Glucose 95 Calcium 7.3 L Magnesium 1.9 Blood Type O Positive Antibody Screen Negative Crossmatch See Detail Microbiology and Other Data: Microbiology 03/06/18 16:04 Gastric Antrum CLOtest - Final Assess/Plan/Problems-Billing Assessment: 87 yo female PMH severe COPD on chronic noctural O2 transfer from [facility] after melena, acute blood loss anemia. Had been getting cftx->zosyn + overmedication with solumedrol 125mg q8H for several days at [place] for potential COPD exac/pna. EGD with numurous erosions/ulcers and 1 crater in duodenum with visible vessel s/p clipped. Acute on Chronic Hypoxic Respiratory failure (resolved). Improving leukocytosis but still tachycardic. s/p 7 u pRBC total. Will receive another unit today. - Patient Problems (1) Acute and chronic respiratory failure Code(s): J96.20 - ACUTE AND CHR RESP FAILURE, UNSP W HYPOXIA OR HYPERCAPNIA SNOMED Code(s): 81481227 Comment: - continues to improve, on room air. - Initial CXR at OSH read as potential CHF. - ECHO: EF 65%, mild pHTN. - on 03/05 got lasix 20mg IV x2 after blood and IVF after e/o volume overload - continue cftx for COPD with productive cough and leukocytosis, however, I feel increase in WBCs is more steroid-induced (2) COPD (chronic obstructive pulmonary disease) Code(s): J44.9 - CHRONIC OBSTRUCTIVE PULMONARY DISEASE, UNSPECIFIED SNOMED Code(s): 72358055 Comment: - Continue dulera and spiriva - Nebs PRN - NO STEROIDS in setting of GIB - Continue ceftriaxone (3) Leukocytosis Code(s): D72.829 - ELEVATED WHITE BLOOD CELL COUNT, UNSPECIFIED SNOMED Code(s) : 384711483 Comment: - Follow WBCs likely r/t massive doses on steroids but cannot r/o hematologic issue - Should see heme-onc as an outpatient (4) Melena Code(s): K92.1 - MELENA SNOMED Code(s): 3271590 Comment: - Last (#8) unit of PRBCs today, goal HgB>8 - EGD with erosions/ulcers, duodenal crater with vissible ulcer - Protonix 40mg po BID for 6 weeks then 40mg daily - CLOtest negative - H&H in AM in setting of a lot of steroids recently. denies NSAID use. (5) Smoker Code(s): F17.200 - NICOTINE DEPENDENCE, UNSPECIFIED, UNCOMPLICATED SNOMED Code (s): 31016480 Comment: - Should quit indefinitely - nicotine patch Status and Disposition: DC to [facility] [address] tomorrow if HgB >8.
[2018-03-11] MEDS: Nicotine Patch Removal NOTE FOLLOW UP SCH (21:49)
[2018-03-11] MEDS: Docusate CAP* 100 MG PO PRN (22:01)
[2018-03-11] MEDS: Polyethylene Glycol 3350* 17 GM PACKET PO PRN (22:01)
[2018-03-12 04:56] LABS: Hematocrit 21 % (35-47); Hemoglobin 6.8 g/dl (12.0-16.0)
[2018-03-12] MEDS: Tiotropium CAP.INH* CAP.INH/18 MCG (USE ORDER SET !) INH SCH (08:04)
[2018-03-12] MEDS: Mometasone/Formoter 200/5 MDI INH SCH ×2 (08:05→20:21)
[2018-03-12] MEDS: Nicotine PATCH 21 MG/24 HR* PATCH TRANSDERM SCH (08:26)
[2018-03-12] MEDS: Atorvastatin* 10 MG TAB PO SCH (08:31)
[2018-03-12] MEDS: Magnesium Oxide TAB* 400 MG PO SCH (08:31)
[2018-03-12] MEDS: Omeprazole CAP* 20 MG PO SCH ×2 (08:31→17:38)
[2018-03-12] MEDS: PARoxetine HCL TAB* 40 MG PO SCH (08:31)
[2018-03-12 16:06] LABS: EGFR Non-African American 102.6 (>60)
--- NOTE | 2018-03-12 16:33 | PN ---
Subjective Date of Service: 03/12/18 Interval History: Patient seen and examined. Drop in HgB overnight despite yesterday's transfusion. Patient symptomatic again with tachypnea, tachycardia, fatigue and SOB. Denies chest pain, no abdominal pain. No further complaints. Objective Active Medications: Albuterol (Ventolin 2.5 Mg/3 Ml Neb.Deepti*) 2.5 mg INH RT.[id number] AWAKE PRN PRN Reason: SHORTNESS OF BREATH Last Admin: 03/10/18 20:03 Dose: 2.5 mg Atorvastatin Calcium (Lipitor*) 5 mg PO DAILY [facility] Last Admin: 03/12/18 08:31 Dose: 5 mg Device (Nicotine Mouth Piece*) 1 each INH .USE WITH NICOTROL PRN PRN Reason: CRAVING Docusate Sodium (Colace Cap*) 100 mg PO DAILY PRN PRN Reason: CONSTIPATION Last Admin: 03/11/18 22:01 Dose: 100 mg Ceftriaxone Sodium 1 gm/ (Sodium Chloride) 50 mls @ 200 mls/hr IVPB Q24H [facility] Last Admin: 03/11/18 17:28 Dose: 200 mls/hr Magnesium Oxide (Magox 400 Tab*) 400 mg PO DAILY [facility] Last Admin: 03/12/18 08:31 Dose: 400 mg Mometasone Furoate/Formoterol Fumar (Dulera 200/5 Mdi*) 2 puff INH BID [facility] Last Admin: 03/12/18 08:05 Dose: 2 puff Nicotine (Nicotine Inhaler*) 10 mg INH Q2H PRN PRN Reason: CRAVING Nicotine (Nicotine Patch 21 Mg/24 Hr*) 1 patch TRANSDERM DAILY@0800 [facility] Last Admin: 03/12/18 08:26 Dose: 1 patch Omeprazole (Prilosec Cap*) 20 mg PO 0730,1630 [facility] Last Admin: 03/12/18 08:31 Dose: 20 mg Ondansetron HCl (Zofran Inj*) 4 mg IV Q6H PRN PRN Reason: NAUSEA Last Admin: 03/12/18 08:26 Dose: 4 mg Paroxetine HCl (Paxil Tab*) 40 mg PO DAILY [facility] Last Admin: 03/12/18 08:31 Dose: 40 mg Pharmacy Profile Note (Nicotine Patch Removal Note*) 1 note FOLLOW UP 2100 [facility] Last Admin: 03/11/18 21:49 Dose: 1 note Polyethylene Glycol/Electrolytes (Miralax*) 17 gm PO DAILY PRN PRN Reason: CONSTIPATION Last Admin: 03/11/18 22:01 Dose: 17 gm Tiotropium [place] (Spiriva Cap.Inh*) 1 cap INH DAILY [facility] Last Admin: 03/12/18 08:04 Dose: 1 cap Vital Signs - 8 hr 03/12/18 11:00 Temperature 98.4 F Pulse Rate 106 Respiratory 22 Rate O2 Sat by Pulse 92 Oximetry Oxygen Devices in Use Now: Nasal Cannula Appearance: Fatigued, tired, NAD Eyes: No Scleral Icterus, PERRLA Ears/Nose/Mouth/Throat: Mucous Membranes Moist Neck: Trachea Midline Respiratory: Symmetrical Chest Expansion and Respiratory Effort, Clear to Auscultation, - - diminished, no wheezing Cardiovascular: NL Sounds; No Murmurs; No JVD, RRR, No Edema Skin: No Rash or Ulcers Neurological: Alert and Oriented x 3 Nutrition: Taking PO's Result Diagrams: 03/12/18 04:41 03/12/18 15:19 Additional Lab and Data: Laboratory Results - last 24 hr 03/07/18 03/09/18 03/09/18 04:32 05:12 05:12 WBC 18.6 H RBC 2.46 L Hgb 7.1 L Hct 21 L MCV 87 MCH 29 MCHC 33 RDW 17 H Plt Count 252 MPV 8.2 Neut % (Auto) 89.6 H Lymph % (Auto) 2.6 L [place] % (Auto) 7.3 H Eos % (Auto) 0.5 Baso % (Auto) 0 Absolute Neuts (auto) 16.7 H Absolute Lymphs (auto) 0.5 L Absolute Monos (auto) 1.4 H Absolute Eos (auto) 0.1 Absolute Basos (auto) 0 Absolute Nucleated RBC 0 Nucleated RBC % 0.1 Sodium 141 Potassium 3.8 Chloride 107 Carbon Dioxide 29 Anion Gap 5 BUN 31 H Creatinine 0.47 L Est GFR ( Amer) 161.6 Est GFR (Non-Af Amer) 125.6 BUN/Creatinine Ratio 66.0 H Glucose 95 Calcium 7.3 L Magnesium 1.9 Blood Type O Positive Antibody Screen Negative Crossmatch See Detail Microbiology and Other Data: Microbiology 03/06/18 16:04 Gastric Antrum CLOtest - Final Assess/Plan/Problems-Billing Assessment: 87 yo female PMH severe COPD on chronic noctural O2 transfer from [facility] after melena, acute blood loss anemia. Had been getting cftx->zosyn + overmedication with solumedrol 125mg q8H for several days at [place] for potential COPD exac/pna. EGD with numurous erosions/ulcers and 1 crater in duodenum with visible vessel s/p clipped. Acute on Chronic Hypoxic Respiratory failure (resolved). Improving leukocytosis but still tachycardic. s/p 8 u pRBC total. - Patient Problems (1) Acute and chronic respiratory failure Code(s): J96.20 - ACUTE AND CHR RESP FAILURE, UNSP W HYPOXIA OR HYPERCAPNIA SNOMED Code(s): 81492041 Comment: - Initial CXR at OSH read as potential CHF - ECHO: EF 65%, mild pHTN. - on 03/05 got lasix 20mg IV x2 after blood and IVF after e/o volume overload - continue cftx for COPD with productive cough and leukocytosis, however, I feel increase in WBCs is more steroid-induced (2) COPD (chronic obstructive pulmonary disease) Code(s): J44.9 - CHRONIC OBSTRUCTIVE PULMONARY DISEASE, UNSPECIFIED SNOMED Code(s): 38219367 Comment: - Continue dulera and spiriva - Nebs PRN - NO STEROIDS in setting of GIB - Continue ceftriaxone (3) Leukocytosis Code(s): D72.829 - ELEVATED WHITE BLOOD CELL COUNT, UNSPECIFIED SNOMED Code(s) : 324074631 Comment: - Follow WBCs likely r/t massive doses on steroids but cannot r/o hematologic issue - Should see heme-onc as an outpatient (4) Melena Code(s): K92.1 - MELENA SNOMED Code(s): 2040798 Comment: - S/P 8 units of PRBCs with 2 more for today, goal HgB>8 - Likely r/t overdose of steroids - EGD with erosions/ulcers, duodenal crater with vissible ulcer - Protonix 40mg po BID for 6 weeks then 40mg daily, will defer to GI for initiation of protonix drip again - CLOtest negative - H&H in AM (5) Smoker Code(s): F17.200 - NICOTINE DEPENDENCE, UNSPECIFIED, UNCOMPLICATED SNOMED Code (s): 96805726 Comment: - Should quit indefinitely - nicotine patch Status and Disposition: Not stable for DC as yet. Reconsulted GI today.
[2018-03-12] MEDS: cefTRIAXone(*) 1 GM in NS 0.9% 50 ML* 50 ML IVPB SCH (17:38)
[2018-03-12] MEDS ORDERED: Pantoprazole IV* 40 MG IV ONE (21:20)
[2018-03-12] MEDS: Pantoprazole IV* 80 MG in NS 0.9% 250 ML* 250 ML IVPB SCH (22:33)
[2018-03-12] MEDS: Nicotine Patch Removal NOTE FOLLOW UP SCH (22:33)
[2018-03-13] MEDS: Tiotropium CAP.INH* CAP.INH/18 MCG (USE ORDER SET !) INH SCH (07:48)
[2018-03-13] MEDS: Mometasone/Formoter 200/5 MDI INH SCH ×2 (07:48→20:58)
[2018-03-13] MEDS ORDERED: NS 0.9% 250 ML* 250 ML ONE (09:04)
[2018-03-13] MEDS: Pantoprazole IV* 80 MG in NS 0.9% 250 ML* 250 ML IVPB SCH ×2 (09:06→18:02)
[2018-03-13] MEDS: Atorvastatin* 10 MG TAB PO SCH (09:07)
[2018-03-13] MEDS: Magnesium Oxide TAB* 400 MG PO SCH (09:07)
[2018-03-13] MEDS: PARoxetine HCL TAB* 40 MG PO SCH (09:08)
[2018-03-13] MEDS: Nicotine PATCH 21 MG/24 HR* PATCH TRANSDERM SCH (09:08)
[2018-03-13 09:48] LABS: Hematocrit 26 % (35-47); Hemoglobin 8.4 g/dl (12.0-16.0); Mean Corpuscular HGB Conc 33 g/dl (31-36); Mean Corpuscular Hemoglobin 28 pg (27-31); Mean Corpuscular Volume 86 fL (80-97); Mean Platelet Volume 8.6 um3 (7.4-10.4); Platelet Count 223 10^3/ul (150-450); Red Cell Distribution Width 18 % (10.5-15); White Blood Count 23.6 10^3/ul (3.5-10.8)
[2018-03-13 10:13] LABS: ABS Basophils 0.1 10^3/ul (0-0.2); ABS Eosinophils 0.2 10^3/ul (0-0.6); ABS Lymphocytes 0.3 10^3/ul (1.0-4.8); ABS Monocytes 0.6 10^3/ul (0-0.8); ABS Neutrophils 22.4 10^3/ul (1.5-7.7); ABS Nucleated RBC 0 10^3/ul; Eosinophil % 0.9 % (0-6); Lymphocyte % 1.2 % (25-47); Nucleated Red Blood Cells % 0
[2018-03-13] MEDS ORDERED: Iodixanol* (CONTRAST) 320 MG/ML 100 ML SDV IV SCH (11:53)
--- NOTE | 2018-03-13 13:00 | RAD ---
INDICATION: Shortness of breath and clinical concern for pulmonary mass COMPARISON: Noncontrast CT of the chest dated February 27, 2018 TECHNIQUE: Axial source images of the chest were acquired before and after the injection of 80 mL of Visipaque 320 intravenous contrast from just above the lung apices to the base of the diaphragm. Coronal and sagittal reconstructed images were acquired. FINDINGS: The heart is normal in size. There is no evidence of pericardial effusion. There is no evidence of aortic aneurysm or dissection. There is coarse calcification at the arch of the aorta, coronary arteries and aortic ring. There is a cluster of pretracheal lymph nodes measuring approximately 1.4 x 2.1 cm in the axial plane, not significantly changed since the previous CT examination. There are small bibasilar pleural effusions slightly larger on the right than the left. These have increased slightly when compared to the previous CT of the chest. There is compressive atelectasis of the dependent portion of the right lobe. In the right middle lobe there is a subcentimeter coarsely calcified granuloma. Degenerative changes of the thoracic spine include loss of intervertebral disc height and mild anterior marginal osteophyte formation. Limited views of the upper abdomen show no abnormalities. IMPRESSION: 1. Bibasilar pleural effusions larger on the right and the left that are slightly larger when compared to the most recent chest CT dated February 27, 2018. There is adjacent compressive atelectasis of the right lower lobe also progressed when compared to the previous CT of the chest. 2. Top normal mediastinal lymphadenopathy not changed since the previous CT the chest of uncertain clinical significance. 3. Additional chronic and degenerative changes described in body the report.
--- NOTE | 2018-03-13 16:56 | PN ---
Subjective Date of Service: 03/13/18 Interval History: Patient seen and examined. Seems very despondent today. Still SOB, HgB improved , Complaint of general weakness and fatigue, no chest pain, no fever or chills. Objective Active Medications: Albuterol (Ventolin 2.5 Mg/3 Ml Neb.Deepti*) 2.5 mg INH RT.[id number] AWAKE PRN PRN Reason: SHORTNESS OF BREATH Last Admin: 03/10/18 20:03 Dose: 2.5 mg Atorvastatin Calcium (Lipitor*) 5 mg PO DAILY [facility] Last Admin: 03/13/18 09:07 Dose: 5 mg Device (Nicotine Mouth Piece*) 1 each INH .USE WITH NICOTROL PRN PRN Reason: CRAVING Docusate Sodium (Colace Cap*) 100 mg PO DAILY PRN PRN Reason: CONSTIPATION Last Admin: 03/11/18 22:01 Dose: 100 mg Ceftriaxone Sodium 1 gm/ (Sodium Chloride) 50 mls @ 200 mls/hr IVPB Q24H [facility] Last Admin: 03/12/18 17:38 Dose: 200 mls/hr Pantoprazole Sodium 80 mg/ (Sodium Chloride) 250 mls @ 25 mls/hr IVPB Q10H [facility] PRN Reason: Protocol Last Admin: 03/13/18 09:06 Dose: 25 mls/hr Iodixanol (Visipaque* 320 (Contrast)) 80 ml IV ONCE [facility] Stop: 03/15/18 11:52 Last Admin: 03/13/18 12:27 Dose: 80 ml Magnesium Oxide (Magox 400 Tab*) 400 mg PO DAILY [facility] Last Admin: 03/13/18 09:07 Dose: 400 mg Mometasone Furoate/Formoterol Fumar (Dulera 200/5 Mdi*) 2 puff INH BID [facility] Last Admin: 03/13/18 07:48 Dose: 2 puff Nicotine (Nicotine Inhaler*) 10 mg INH Q2H PRN PRN Reason: CRAVING Nicotine (Nicotine Patch 21 Mg/24 Hr*) 1 patch TRANSDERM DAILY@0800 [facility] Last Admin: 03/13/18 09:08 Dose: 1 patch Ondansetron HCl (Zofran Inj*) 4 mg IV Q6H PRN PRN Reason: NAUSEA Last Admin: 03/12/18 08:26 Dose: 4 mg Paroxetine HCl (Paxil Tab*) 40 mg PO DAILY [facility] Last Admin: 03/13/18 09:08 Dose: 40 mg Pharmacy Profile Note (Nicotine Patch Removal Note*) 1 note FOLLOW UP 2100 [facility] Last Admin: 03/12/18 22:33 Dose: 1 note Polyethylene Glycol/Electrolytes (Miralax*) 17 gm PO DAILY PRN PRN Reason: CONSTIPATION Last Admin: 03/11/18 22:01 Dose: 17 gm Tiotropium [place] (Spiriva Cap.Inh*) 1 cap INH DAILY [facility] Last Admin: 03/13/18 07:48 Dose: 1 cap Oxygen Devices in Use Now: Nasal Cannula Appearance: Alert, frail, tired Ears/Nose/Mouth/Throat: Clear Oropharnyx Neck: NL Appearance and Movements; NL JVP, Trachea Midline Respiratory: - - Increased WOB, mild tachypnea, diminished throughout lung hamitlon Extremities: No Edema, No Clubbing, Cyanosis Skin: No Rash or Ulcers Neurological: Alert and Oriented x 3, - - general weakness Nutrition: Taking PO's Result Diagrams: 03/13/18 09:10 03/12/18 15:19 Additional Lab and Data: Laboratory Results - last 24 hr 03/07/18 03/09/18 03/09/18 04:32 05:12 05:12 WBC 18.6 H RBC 2.46 L Hgb 7.1 L Hct 21 L MCV 87 MCH 29 MCHC 33 RDW 17 H Plt Count 252 MPV 8.2 Neut % (Auto) 89.6 H Lymph % (Auto) 2.6 L [place] % (Auto) 7.3 H Eos % (Auto) 0.5 Baso % (Auto) 0 Absolute Neuts (auto) 16.7 H Absolute Lymphs (auto) 0.5 L Absolute Monos (auto) 1.4 H Absolute Eos (auto) 0.1 Absolute Basos (auto) 0 Absolute Nucleated RBC 0 Nucleated RBC % 0.1 Sodium 141 Potassium 3.8 Chloride 107 Carbon Dioxide 29 Anion Gap 5 BUN 31 H Creatinine 0.47 L Est GFR ( Amer) 161.6 Est GFR (Non-Af Amer) 125.6 BUN/Creatinine Ratio 66.0 H Glucose 95 Calcium 7.3 L Magnesium 1.9 Blood Type O Positive Antibody Screen Negative Crossmatch See Detail Microbiology and Other Data: Microbiology 03/06/18 16:04 Gastric Antrum CLOtest - Final Diagnostic Imaging: Patient Name: YURI LOCK Medical Record#: [id number] Ordering Physician: Lupe Harry NP Acct.#: [id number] : 1930 Age: 87 Sex: F Location: [address] [place] [address] MEDICAL/TELEMETRY Exam Date: 03/13/18 1113 ADM Status: ADM IN Order Information: CT CHEST W/WO Accession Number: [id number] CPT: 68566 INDICATION: Shortness of breath and clinical concern for pulmonary mass COMPARISON: Noncontrast CT of the chest dated February 27, 2018 TECHNIQUE: Axial source images of the chest were acquired before and after the injection of 80 mL of Visipaque 320 intravenous contrast from just above the lung apices to the base of the diaphragm. Coronal and sagittal reconstructed images were acquired. FINDINGS: The heart is normal in size. There is no evidence of pericardial effusion. There is no evidence of aortic aneurysm or dissection. There is coarse calcification at the arch of the aorta, coronary arteries and aortic ring. There is a cluster of pretracheal lymph nodes measuring approximately 1.4 x 2.1 cm in the axial plane, not significantly changed since the previous CT examination. There are small bibasilar pleural effusions slightly larger on the right than the left. These have increased slightly when compared to the previous CT of the chest. There is compressive atelectasis of the dependent portion of the right lobe. In the right middle lobe there is a subcentimeter coarsely calcified granuloma. Degenerative changes of the thoracic spine include loss of intervertebral disc height and mild anterior marginal osteophyte formation. Limited views of the upper abdomen show no abnormalities. IMPRESSION: 1. Bibasilar pleural effusions larger on the right and the left that are slightly larger when compared to the most recent chest CT dated February 27, 2018. There is adjacent compressive atelectasis of the right lower lobe also progressed when compared to the previous CT of the chest. 2. Top normal mediastinal lymphadenopathy not changed since the previous CT the chest of uncertain clinical significance. 3. Additional chronic and degenerative changes described in body the report. <Electronically signed by Rob Queen MD in OV> 03/13/18 1257 Dictated By: Rob Queen MD Dictated Date/Time: 03/13/18 1257 Transcribed Date/Time: 03/13/18 1234 Copy to: CC:Giovana Humphreys MD; Warren Kaminski MD; Valerie Rosa DO; Trung Bond MD; Lupe Harry [employer]; Maximiliano Camacho MD 1 of 2 Assess/Plan/Problems-Billing Assessment: 87 yo female PMH severe COPD on chronic noctural O2 transfer from [facility] after melena, acute blood loss anemia. Had been getting cftx->zosyn + overmedication with solumedrol 125mg q8H for several days at [place] for potential COPD exac/pna. EGD with numurous erosions/ulcers and 1 crater in duodenum with visible vessel s/p clipped. Acute on Chronic Hypoxic Respiratory failure, persistent. Increased leukocytosis today and remains tachypneic and tachycardic. s/p 10 u pRBC total. - Patient Problems (1) Acute and chronic respiratory failure Code(s): J96.20 - ACUTE AND CHR RESP FAILURE, UNSP W HYPOXIA OR HYPERCAPNIA SNOMED Code(s): 85595400 Comment: - Maintaining on supplemental O2 - Antibiotics do not seem to be improving her condition - CT chest today as above - Persistent leukocytosis is concerning (2) COPD (chronic obstructive pulmonary disease) Code(s): J44.9 - CHRONIC OBSTRUCTIVE PULMONARY DISEASE, UNSPECIFIED SNOMED Code(s): 19332920 Comment: - Continue dulera and spiriva - Nebs PRN - NO STEROIDS in setting of GIB - Continue ceftriaxone - Supplemental O2 - May consider pulmonology consult, as patient's respiratory status not improving (3) Leukocytosis Code(s): D72.829 - ELEVATED WHITE BLOOD CELL COUNT, UNSPECIFIED SNOMED Code(s) : 346648554 Comment: - Bump up in WBCs again today and has been off steroids - Consult with Dr. Bond today to r/o hematologic vs oncologic etiology (4) Melena Code(s): K92.1 - MELENA SNOMED Code(s): 7780069 Comment: - s/p 10 units PRBCs, HgB 8.4 today, remains tachypneic - Continue to hold steroids - EGD with erosions/ulcers, duodenal crater with vissible ulcer - Reconsulted GI yesterday and restarted protonix drip (5) Smoker Code(s): F17.200 - NICOTINE DEPENDENCE, UNSPECIFIED, UNCOMPLICATED SNOMED Code (s): 40162219 Comment: - Should quit indefinitely - nicotine patch (6) DVT prophylaxis Code(s): NFC1663 - SNOMED Code(s): 614146230 Comment: - SCDs in setting of acute bleeding (7) DNR (do not resuscitate) Status and Disposition: Not stable for DC as yet. Pending consult with Dr. Bond, appreciate additional input from GI, concerned that patient may need palliative care during this admission.
[2018-03-13] MEDS: cefTRIAXone(*) 1 GM in NS 0.9% 50 ML* 50 ML IVPB SCH (17:05)
[2018-03-13] MEDS: Nicotine Patch Removal NOTE FOLLOW UP SCH (21:18)
[2018-03-13] MEDS: Albuterol 2.5 MG/3 ML NEB.SOL* (0.083%) INH PRN (23:30)
[2018-03-14 00:08] LABS: Hematocrit 22 % (35-47); Hemoglobin 7.3 g/dl (12.0-16.0)
[2018-03-14] MEDS ORDERED: Furosemide IV* 10 MG/ML 2 ML VIAL (20 MG) IV ONE (00:41)
--- NOTE | 2018-03-14 00:42 | PN ---
Progress Note - Progress Note Date of Service: 03/14/18 Note: Paged for tachypnea and tachycardia - patients states her breathing is no worse than usual. On exam increase work of breathing, rhonchi b/l. CXR shows prominent interstital markings. Will give Lasix 20 mg IV. Repeat H/H showed slight drop. If no improvement after lasix will transfer to ICU
[2018-03-14] MEDS: Pantoprazole IV* 80 MG in NS 0.9% 250 ML* 250 ML IVPB SCH ×2 (04:10→15:28)
[2018-03-14 05:08] LABS: ABS Basophils 0.2 10^3/ul (0-0.2); ABS Eosinophils 0.1 10^3/ul (0-0.6); ABS Lymphocytes 0.2 10^3/ul (1.0-4.8); ABS Monocytes 0.6 10^3/ul (0-0.8); ABS Neutrophils 14.1 10^3/ul (1.5-7.7); ABS Nucleated RBC 0 10^3/ul; Eosinophil % 0.5 % (0-6); Hematocrit 23 % (35-47); Hemoglobin 7.5 g/dl (12.0-16.0); Lymphocyte % 1.3 % (25-47); Mean Corpuscular HGB Conc 32 g/dl (31-36); Mean Corpuscular Hemoglobin 28 pg (27-31); Mean Corpuscular Volume 86 fL (80-97); Mean Platelet Volume 8.8 um3 (7.4-10.4); Nucleated Red Blood Cells % 0; Platelet Count 201 10^3/ul (150-450); Red Blood Count 2.72 10^6/ul (4.0-5.4); Red Cell Distribution Width 18 % (10.5-15); White Blood Count 15.2 10^3/ul (3.5-10.8)
[2018-03-14] MEDS: Cefepime(*) 1 GM in D5W 50 ML BAG* 50 ML IVPB SCH ×2 (06:13→17:41)
--- NOTE | 2018-03-14 07:59 | RAD ---
HISTORY: Shortness of breath COMPARISONS: March 06, 2018 VIEWS: 1: frontal portable view of the chest at 12:30 AM FINDINGS: LINES AND TUBES: None. CARDIOMEDIASTINAL SILHOUETTE: The aorta is tortuous. The cardiomediastinal silhouette is otherwise normal for portable technique. PLEURA: The costophrenic angles are sharp. No pleural abnormalities are noted. LUNG PARENCHYMA: There is hyperinflation. There is prominence of the central pulmonary vasculature. ABDOMEN: The upper abdomen is clear. There is no subphrenic gas. BONES AND SOFT TISSUES: Degenerative changes are noted. IMPRESSION: 1. COPD. 2. PULMONARY VASCULAR CONGESTION.
[2018-03-14] MEDS: Tiotropium CAP.INH* CAP.INH/18 MCG (USE ORDER SET !) INH SCH (09:10)
[2018-03-14] MEDS: Mometasone/Formoter 200/5 MDI INH SCH ×2 (09:13→20:32)
[2018-03-14] MEDS: Atorvastatin* 10 MG TAB PO SCH (09:15)
[2018-03-14] MEDS: PARoxetine HCL TAB* 40 MG PO SCH (09:15)
[2018-03-14] MEDS: Nicotine PATCH 21 MG/24 HR* PATCH TRANSDERM SCH (09:15)
[2018-03-14] MEDS: Magnesium Oxide TAB* 400 MG PO SCH (09:15)
[2018-03-14] MEDS: Albuterol 2.5 MG/3 ML NEB.SOL* (0.083%) INH PRN (09:50)
--- NOTE | 2018-03-14 09:59 | CONSULT ---
Consultation - Reason for Consultation Reason for Consultation: leukocytosis and mediastinal VINH Ordering Provider: Lupe Harry Chief Complaint: leukocytosis and mediastinal VINH History of Present Illness: Of note, Yelena is a poor historian. From chart review and consultation with her, she is an 87 yoF w advanced COPD, with continued tobacco use, who presented to [facility] on 02/21 with reported PNA and a COPD exacerbation. She was treated there4 for 11 days with solumedrol 125 mg IV q8 hrs. She was transferred here when she became hypotensive and anemic and was found to have melena. Upper endoscopy on the showed multiple large ulcers , presumably from the marked steroid use. She was treated with PPI drip followed by po PPI. She was noted to have marked leukocytosis with granulocytosis on admission (up to 49k here) which has decreased to 15k this am. She was noted to have a WBC of 30k on admission there while in acute distress. In speaking with her primary's office, her wbc was normal in November and December of this year. She denies fevers, night sweats or weight loss prior to admission. Notably her Chest CT done yesterday, which I have personally reviewed, shows top normal mediastinal nodes (again, in the setting of this illness) without a lung mass. Of note she has developed melena again and is pending re-evaluation with GI. She was moved into the ICU overnight for vapotherm given deteriorating respiratory status. Allergies/Medications Medication: Albuterol (Ventolin 2.5 Mg/3 Ml Neb.Deepti*) 2.5 mg INH RT.[id number] AWAKE PRN PRN Reason: SHORTNESS OF BREATH Last Admin: 03/14/18 09:50 Dose: 2.5 mg Atorvastatin Calcium (Lipitor*) 5 mg PO DAILY [facility] Last Admin: 03/14/18 09:15 Dose: 5 mg Device (Nicotine Mouth Piece*) 1 each INH .USE WITH NICOTROL PRN PRN Reason: CRAVING Docusate Sodium (Colace Cap*) 100 mg PO DAILY PRN PRN Reason: CONSTIPATION Last Admin: 03/11/18 22:01 Dose: 100 mg Pantoprazole Sodium 80 mg/ (Sodium Chloride) 250 mls @ 25 mls/hr IVPB Q10H [facility] PRN Reason: Protocol Last Admin: 03/14/18 04:10 Dose: 25 mls/hr Cefepime HCl 1 gm/ Dextrose 50 mls @ 100 mls/hr IVPB Q12H [facility] Last Admin: 03/14/18 06:13 Dose: 100 mls/hr Iodixanol (Visipaque* 320 (Contrast)) 80 ml IV ONCE [facility] Stop: 03/15/18 11:52 Last Admin: 03/13/18 12:27 Dose: 80 ml Magnesium Oxide (Magox 400 Tab*) 400 mg PO DAILY [facility] Last Admin: 03/14/18 09:15 Dose: 400 mg Mometasone Furoate/Formoterol Fumar (Dulera 200/5 Mdi*) 2 puff INH BID [facility] Last Admin: 03/14/18 09:13 Dose: 2 puff Nicotine (Nicotine Inhaler*) 10 mg INH Q2H PRN PRN Reason: CRAVING Nicotine (Nicotine Patch 21 Mg/24 Hr*) 1 patch TRANSDERM DAILY@0800 [facility] Last Admin: 03/14/18 09:15 Dose: 1 patch Ondansetron HCl (Zofran Inj*) 4 mg IV Q6H PRN PRN Reason: NAUSEA Last Admin: 03/12/18 08:26 Dose: 4 mg Paroxetine HCl (Paxil Tab*) 40 mg PO DAILY [facility] Last Admin: 03/14/18 09:15 Dose: 40 mg Pharmacy Profile Note (Nicotine Patch Removal Note*) 1 note FOLLOW UP 2100 [facility] Last Admin: 03/13/18 21:18 Dose: 1 note Polyethylene Glycol/Electrolytes (Miralax*) 17 gm PO DAILY PRN PRN Reason: CONSTIPATION Last Admin: 03/11/18 22:01 Dose: 17 gm Tiotropium [place] (Spiriva Cap.Inh*) 1 cap INH DAILY [facility] Last Admin: 03/14/18 09:10 Dose: 1 cap Allergies/Adverse Reactions: Allergies Allergy/AdvReac Type Severity Reaction Status Date / Time No Known Allergies Allergy Verified 03/04/18 21:09 History - Past Medical History Other History: COPD. HTN. hyperlipidemia. depression. cataract surgery. right inguinal hernia repair - Family History Other Family History: father leukemia, unsure what type. mother: blood clot - Social History Other Social History: active smoker 1- 1 1/2 ppd since age 19. no etoh use Review of Systems - Review of Systems General Comments: poor historian reports fatigue, SOB but better than last night. no weight loss, no nausea or vomiting +melena, +chronic arthritic pains, otherwise negative ROS Physical Exam - Physical Exam Physical Examination: Vital Signs Temp Pulse Resp BP Pulse Ox 100.3 F 100 31 100/56 100 03/14/18 04:24 03/14/18 09:00 03/14/18 09:00 03/14/18 09:00 03/14/18 09:00 frail elderly female in NAD perr eomi op moist dec bs throughout s1 s2 nl soft nt +Bs no le edema no vinh (very thin and easy to palpate) no breast masses A+O x 3, though vague historian Results - Lab Results Lab Results: 03/10/18 03/12/18 03/12/18 05:12 04:41 15:19 WBC RBC Hgb 6.8 L Hct 21 L MCV MCH MCHC RDW Plt Count MPV Neut % (Auto) Lymph % (Auto) [place] % (Auto) Eos % (Auto) Baso % (Auto) Absolute Neuts (auto) Absolute Lymphs (auto) Absolute Monos (auto) Absolute Eos (auto) Absolute Basos (auto) Absolute Nucleated RBC Nucleated RBC % Sodium 141 Potassium 4.5 Chloride 109 Carbon Dioxide 27 Anion Gap 5 BUN 46 H Creatinine 0.56 Est GFR ( Amer) 132.0 Est GFR (Non-Af Amer) 102.6 BUN/Creatinine Ratio 82.1 H Glucose 109 H Calcium 7.6 L Total Bilirubin 0.40 AST 11 L ALT 12 Alkaline Phosphatase 43 Troponin I B-Natriuretic Peptide Total Protein 4.3 L Albumin 2.2 L Globulin 2.1 Albumin/Globulin Ratio 1.0 Prealbumin 12 L Blood Type O Positive Antibody Screen Negative Crossmatch See Detail 03/13/18 03/14/18 03/14/18 09:10 00:01 03:06 WBC 23.6 H RBC 3.00 L Hgb 8.4 L 7.3 L Hct 26 L 22 L MCV 86 MCH 28 MCHC 33 RDW 18 H Plt Count 223 MPV 8.6 Neut % (Auto) 95.2 H Lymph % (Auto) 1.2 L [place] % (Auto) 2.4 Eos % (Auto) 0.9 Baso % (Auto) 0.3 Absolute Neuts (auto) 22.4 H Absolute Lymphs (auto) 0.3 L Absolute Monos (auto) 0.6 Absolute Eos (auto) 0.2 Absolute Basos (auto) 0.1 Absolute Nucleated RBC 0 Nucleated RBC % 0 Sodium Potassium Chloride Carbon Dioxide Anion Gap BUN Creatinine Est GFR ( Amer) Est GFR (Non-Af Amer) BUN/Creatinine Ratio Glucose Calcium Total Bilirubin AST ALT Alkaline Phosphatase Troponin I B-Natriuretic Peptide 65 Total Protein Albumin Globulin Albumin/Globulin Ratio Prealbumin Blood Type Antibody Screen Crossmatch 03/14/18 03/14/18 03/14/18 03:06 03:06 06:55 WBC 15.2 H RBC 2.72 L Hgb 7.5 L Hct 23 L MCV 86 MCH 28 MCHC 32 RDW 18 H Plt Count 201 MPV 8.8 Neut % (Auto) 93.2 H Lymph % (Auto) 1.3 L [place] % (Auto) 3.8 Eos % (Auto) 0.5 Baso % (Auto) 1.2 Absolute Neuts (auto) 14.1 H Absolute Lymphs (auto) 0.2 L Absolute Monos (auto) 0.6 Absolute Eos (auto) 0.1 Absolute Basos (auto) 0.2 Absolute Nucleated RBC 0 Nucleated RBC % 0 Sodium 134 L Potassium 4.3 Chloride 101 Carbon Dioxide 27 Anion Gap 6 BUN 30 H Creatinine 0.64 Est GFR ( Amer) 113.2 Est GFR (Non-Af Amer) 88.0 BUN/Creatinine Ratio 46.9 H Glucose 110 H Calcium 7.7 L Total Bilirubin AST ALT Alkaline Phosphatase Troponin I 0.03 0.03 B-Natriuretic Peptide Total Protein Albumin Globulin Albumin/Globulin Ratio Prealbumin Blood Type Antibody Screen sCrossmatch smear: anisopoikilocytosis, no nucleated RBCs or teardrops, neutrophil predominance with toxic granulations, no immature WBCs, nl appearing platelets Assessment and Plan Impression: 87 yo F w advanced COPD presenting as a hospital transfer with upper GI bleed and leukocytosis in the setting of very high dose steroid use. Her WBC is decreasing and was normal 1 month prior to admission arguing that it was elevated related to her infection and steroid use. Her smear is not concerning for leukemia or lymphoma. 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 I do NOT see any evidence for current cancer. In terms of her anemia, it is most likely related to her ongoing GI blood loss and anemia of chronic disease.
--- NOTE | 2018-03-14 11:35 | PN ---
Subjective Date of Service: 03/14/18 Interval History: Patient seen and examined. Was upgraded to ICU overnight, for increased SOB and WOB, now on vapotherm and doing well. HgB remains suppressed. Denies fever or chills, no headache. Objective Active Medications: Albuterol (Ventolin 2.5 Mg/3 Ml Neb.Deepti*) 2.5 mg INH [id number] AWAKE PRN PRN Reason: SHORTNESS OF BREATH Last Admin: 03/14/18 09:50 Dose: 2.5 mg Atorvastatin Calcium (Lipitor*) 5 mg PO DAILY [facility] Last Admin: 03/14/18 09:15 Dose: 5 mg Device (Nicotine Mouth Piece*) 1 each INH .USE WITH NICOTROL PRN PRN Reason: CRAVING Docusate Sodium (Colace Cap*) 100 mg PO DAILY PRN PRN Reason: CONSTIPATION Last Admin: 03/11/18 22:01 Dose: 100 mg Pantoprazole Sodium 80 mg/ (Sodium Chloride) 250 mls @ 25 mls/hr IVPB Q10H [facility] PRN Reason: Protocol Last Admin: 03/14/18 04:10 Dose: 25 mls/hr Cefepime HCl 1 gm/ Dextrose 50 mls @ 100 mls/hr IVPB Q12H [facility] Last Admin: 03/14/18 06:13 Dose: 100 mls/hr Iodixanol (Visipaque* 320 (Contrast)) 80 ml IV ONCE [facility] Stop: 03/15/18 11:52 Last Admin: 03/13/18 12:27 Dose: 80 ml Magnesium Oxide (Magox 400 Tab*) 400 mg PO DAILY [facility] Last Admin: 03/14/18 09:15 Dose: 400 mg Mometasone Furoate/Formoterol Fumar (Dulera 200/5 Mdi*) 2 puff INH BID [facility] Last Admin: 03/14/18 09:13 Dose: 2 puff Nicotine (Nicotine Inhaler*) 10 mg INH Q2H PRN PRN Reason: CRAVING Nicotine (Nicotine Patch 21 Mg/24 Hr*) 1 patch TRANSDERM DAILY@0800 [facility] Last Admin: 03/14/18 09:15 Dose: 1 patch Ondansetron HCl (Zofran Inj*) 4 mg IV Q6H PRN PRN Reason: NAUSEA Last Admin: 03/12/18 08:26 Dose: 4 mg Paroxetine HCl (Paxil Tab*) 40 mg PO DAILY [facility] Last Admin: 03/14/18 09:15 Dose: 40 mg Pharmacy Profile Note (Nicotine Patch Removal Note*) 1 note FOLLOW UP 2100 [facility] Last Admin: 03/13/18 21:18 Dose: 1 note Polyethylene Glycol/Electrolytes (Miralax*) 17 gm PO DAILY PRN PRN Reason: CONSTIPATION Last Admin: 03/11/18 22:01 Dose: 17 gm Tiotropium [place] (Spiriva Cap.Inh*) 1 cap INH DAILY [facility] Last Admin: 03/14/18 09:10 Dose: 1 cap Vital Signs - 8 hr 03/14/18 03/14/18 03/14/18 04:00 04:24 04:53 Temperature 100.3 F Pulse Rate 112 109 104 Respiratory 23 27 22 Rate Blood Pressure 96/44 84/46 (mmHg) O2 Sat by Pulse 98 98 98 Oximetry 03/14/18 03/14/18 03/14/18 04:57 05:00 05:01 Temperature Pulse Rate 109 112 110 Respiratory 43 40 42 Rate Blood Pressure 94/45 96/44 (mmHg) O2 Sat by Pulse 99 98 99 Oximetry 03/14/18 03/14/18 03/14/18 05:15 05:30 05:46 Temperature Pulse Rate 115 109 111 Respiratory 37 25 39 Rate Blood Pressure 93/43 97/43 97/49 (mmHg) O2 Sat by Pulse 98 98 98 Oximetry 03/14/18 03/14/18 03/14/18 06:00 06:01 06:15 Temperature Pulse Rate 108 109 107 Respiratory 35 33 34 Rate Blood Pressure 98/51 89/51 (mmHg) O2 Sat by Pulse 99 99 99 Oximetry 03/14/18 03/14/18 03/14/18 06:30 06:45 06:46 Temperature Pulse Rate 110 103 108 Respiratory 37 30 36 Rate Blood Pressure 111/51 81/54 96/45 (mmHg) O2 Sat by Pulse 99 98 98 Oximetry 03/14/18 03/14/18 03/14/18 07:00 07:01 07:15 Temperature Pulse Rate 107 106 106 Respiratory 37 35 35 Rate Blood Pressure 93/43 98/47 (mmHg) O2 Sat by Pulse 98 99 99 Oximetry 03/14/18 03/14/18 03/14/18 07:30 07:45 08:00 Temperature Pulse Rate 104 93 99 Respiratory 33 23 34 Rate Blood Pressure 91/40 92/52 97/48 (mmHg) O2 Sat by Pulse 98 99 99 Oximetry 03/14/18 03/14/18 03/14/18 08:01 08:15 08:30 Temperature Pulse Rate 105 109 105 Respiratory 33 23 40 Rate Blood Pressure 95/49 101/63 (mmHg) O2 Sat by Pulse 99 98 97 Oximetry 03/14/18 03/14/18 03/14/18 08:45 08:53 09:00 Temperature Pulse Rate 110 102 100 Respiratory 46 24 31 Rate Blood Pressure 80/45 98/52 100/56 (mmHg) O2 Sat by Pulse 98 100 100 Oximetry Oxygen Devices in Use Now: High Flow Heated Nasal Cannula Appearance: Alert, tired NAD Ears/Nose/Mouth/Throat: Mucous Membranes Moist Neck: Trachea Midline Respiratory: - - diminished lung hamilton, no rales or rhonchi Cardiovascular: NL Sounds; No Murmurs; No JVD, RRR Extremities: No Edema Neurological: Alert and Oriented x 3 Nutrition: Taking PO's Result Diagrams: 03/14/18 03:06 03/14/18 03:06 Additional Lab and Data: Laboratory Results - last 24 hr 03/07/18 03/09/18 03/09/18 04:32 05:12 05:12 WBC 18.6 H RBC 2.46 L Hgb 7.1 L Hct 21 L MCV 87 MCH 29 MCHC 33 RDW 17 H Plt Count 252 MPV 8.2 Neut % (Auto) 89.6 H Lymph % (Auto) 2.6 L Dubois % (Auto) 7.3 H Eos % (Auto) 0.5 Baso % (Auto) 0 Absolute Neuts (auto) 16.7 H Absolute Lymphs (auto) 0.5 L Absolute Monos (auto) 1.4 H Absolute Eos (auto) 0.1 Absolute Basos (auto) 0 Absolute Nucleated RBC 0 Nucleated RBC % 0.1 Sodium 141 Potassium 3.8 Chloride 107 Carbon Dioxide 29 Anion Gap 5 BUN 31 H Creatinine 0.47 L Est GFR ( Amer) 161.6 Est GFR (Non-Af Amer) 125.6 BUN/Creatinine Ratio 66.0 H Glucose 95 Calcium 7.3 L Magnesium 1.9 Blood Type O Positive Antibody Screen Negative Crossmatch See Detail Microbiology and Other Data: Microbiology 03/06/18 16:04 Gastric Antrum CLOtest - Final Diagnostic Imaging: Patient Name: YURI LOCK Medical Record#: [id number] Ordering Physician: Lupe Harry NP Acct.#: [id number] : 1930 Age: 87 Sex: F Location: [address] [place] [address]/TELEMETRY Exam Date: 03/13/18 1113 ADM Status: ADM IN Order Information: CT CHEST W/WO Accession Number: [id number] CPT: 80013 INDICATION: Shortness of breath and clinical concern for pulmonary mass COMPARISON: Noncontrast CT of the chest dated February 27, 2018 TECHNIQUE: Axial source images of the chest were acquired before and after the injection of 80 mL of Visipaque 320 intravenous contrast from just above the lung apices to the base of the diaphragm. Coronal and sagittal reconstructed images were acquired. FINDINGS: The heart is normal in size. There is no evidence of pericardial effusion. There is no evidence of aortic aneurysm or dissection. There is coarse calcification at the arch of the aorta, coronary arteries and aortic ring. There is a cluster of pretracheal lymph nodes measuring approximately 1.4 x 2.1 cm in the axial plane, not significantly changed since the previous CT examination. There are small bibasilar pleural effusions slightly larger on the right than the left. These have increased slightly when compared to the previous CT of the chest. There is compressive atelectasis of the dependent portion of the right lobe. In the right middle lobe there is a subcentimeter coarsely calcified granuloma. Degenerative changes of the thoracic spine include loss of intervertebral disc height and mild anterior marginal osteophyte formation. Limited views of the upper abdomen show no abnormalities. IMPRESSION: 1. Bibasilar pleural effusions larger on the right and the left that are slightly larger when compared to the most recent chest CT dated February 27, 2018. There is adjacent compressive atelectasis of the right lower lobe also progressed when compared to the previous CT of the chest. 2. Top normal mediastinal lymphadenopathy not changed since the previous CT the chest of uncertain clinical significance. 3. Additional chronic and degenerative changes described in body the report. <Electronically signed by Rob Queen MD in OV> 03/13/18 1257 Dictated By: Rob Queen MD Dictated Date/Time: 03/13/18 1257 Transcribed Date/Time: 03/13/18 1234 Copy to: CC:Giovana Humphreys MD; Warren Kaminski MD; Valerie Rosa DO; Trung oBnd MD; Lupe Harry NP; Maximiliano Camacho MD REPEAT CXR 1 of 2 Patient Name: YURI LOCK Medical Record#: [id number] Ordering Physician: Virginie Machuca DO Acct.#: [id number] : 1930 Age: 87 Sex: F Location: [facility]ARE UN[facility] Exam Date: 03/14/1817 ADM Status: ADM IN Order Information: CHEST AP PORTABLE Accession Number: [id number] CPT: 43491 HISTORY: Shortness of breath COMPARISONS: March 06, 2018 VIEWS: 1: frontal portable view of the chest at 12:30 AM FINDINGS: LINES AND TUBES: None. CARDIOMEDIASTINAL SILHOUETTE: The aorta is tortuous. The cardiomediastinal silhouette is otherwise normal for portable technique. PLEURA: The costophrenic angles are sharp. No pleural abnormalities are noted. LUNG PARENCHYMA: There is hyperinflation. There is prominence of the central pulmonary vasculature. ABDOMEN: The upper abdomen is clear. There is no subphrenic gas. BONES AND SOFT TISSUES: Degenerative changes are noted. IMPRESSION: 1. COPD. 2. PULMONARY VASCULAR CONGESTION. <Electronically signed by Benjie Henry MD in OV> 03/14/18 0756 Dictated By: Benjie Henry MD Dictated Date/Time: 03/14/18 0756 Transcribed Date/Time: 03/14/18 0755 Copy to: CC:Candis Delgado MD; Giovana Humphreys MD; Warren Kaminski MD; Valerie Rosa DO; Trung Bond MD; Virginie Machuca DO Imaging - [facility] Imaging - [facility] Imaging - [facility] [address] [place] [id number] [place] [address] ph ([phone]) ph ([phone]) ph ([phone]) 1 of 1 Assess/Plan/Problems-Billing Assessment: 87 yo female PMH severe COPD on chronic noctural O2 transfer from [facility] after melena, acute blood loss anemia. Had been getting cftx->zosyn + overmedication with solumedrol 125mg q8H for several days at [place] for potential COPD exac/pna. EGD with numurous erosions/ulcers and 1 crater in duodenum with visible vessel s/p clipped. Acute on Chronic Hypoxic Respiratory failure, persistent. Increased leukocytosis today and remains tachypneic and tachycardic. s/p 10 u pRBC total. - Patient Problems (1) Acute and chronic respiratory failure Code(s): J96.20 - ACUTE AND CHR RESP FAILURE, UNSP W HYPOXIA OR HYPERCAPNIA SNOMED Code(s): 33851166 Comment: - On vapotherm and feeling better - CT and CXR with no acute infective process, had lasix overnight, seems improved (2) COPD (chronic obstructive pulmonary disease) Code(s): J44.9 - CHRONIC OBSTRUCTIVE PULMONARY DISEASE, UNSPECIFIED SNOMED Code(s): 34389810 Comment: - Continue dulera and spiriva - Nebs PRN - Will DC ceftriaxone - Vapotherm, will try to transition off to NC - May consider pulmonology consult, as patient's respiratory status not improving (3) Leukocytosis Code(s): D72.829 - ELEVATED WHITE BLOOD CELL COUNT, UNSPECIFIED SNOMED Code(s) : 071662090 Comment: - WBCs remain elevated and has been off steroids - Discussed with Dr. Elias/onco, feels this is still suppression from steroids and not likely heme-onc issue, CT chest was reviewed by Dr. Elias, please see her consultation (4) Melena Code(s): K92.1 - MELENA SNOMED Code(s): 6668123 Comment: - s/p 10 units PRBCs, with refractory low HgB - Upper GI bleeding likely 2/2 steroid overdose - EGD with erosions/ulcers, duodenal crater with vissible ulcer - Reconsulted GI 03/12 and restarted protonix drip - Discussed case with Dr. Mclaughlin, will give one last unit of blood today, if HgB drops again in AM with bring back to endoscopy - NPO after midnight (5) Smoker Code(s): F17.200 - NICOTINE DEPENDENCE, UNSPECIFIED, UNCOMPLICATED SNOMED Code (s): 87918107 Comment: - Should quit indefinitely - nicotine patch (6) DVT prophylaxis Code(s): THE8880 - SNOMED Code(s): 112347035 Comment: - SCDs in setting of acute bleeding (7) DNR (do not resuscitate) Status and Disposition: Remain inpatient, guarded.
[2018-03-14] MEDS ORDERED: ALPRAZolam TAB* 0.25 MG PO PRN (12:04)
--- NOTE | 2018-03-14 15:56 | PN ---
GASTROENTEROLOGY PROGRESS NOTE: DATE OF SERVICE: 03/14/18 HISTORY: Ms. Haddad has no complaints today. She did have some respiratory distress overnight and was moved to the intensive care unit. I should note that the patient was scoped back on 03/06/18 and was noted to have multiple ulcers within the antrum and duodenum. She did have 1 visible vessel noted, which was clipped. The patient has in total received 11 units of blood. Her morning hematocrit is 23, last evening hematocrit was 22. She has not had any stool output today. The patient denies any nausea or vomiting. She has no abdominal pain. She is currently on FiO2 of 50% and appears comfortable breathing. The patient was placed back on IV pantoprazole drip on the evening of 03/12/18. I have discussed Ms. Haddad with Lupe Harry NP. The plan will be for the patient to receive 1 additional unit of packed red blood cells and continue on high FiO2 and IV pantoprazole drip. If her hematocrit drops further, we will plan on upper endoscopy with anesthesia assistance tomorrow morning. She is currently on a diet. She will be n.p.o. after midnight for possible upper endoscopy tomorrow morning. If her blood count improves, endoscopy will not be performed. [id number]/[facility] #: [id number] [place]
[2018-03-14] MEDS: Nicotine Patch Removal NOTE FOLLOW UP SCH (21:09)
[2018-03-15] MEDS: Pantoprazole IV* 80 MG in NS 0.9% 250 ML* 250 ML IVPB SCH ×3 (01:53→21:59)
[2018-03-15] MEDS: Cefepime(*) 1 GM in D5W 50 ML BAG* 50 ML IVPB SCH ×2 (05:50→18:32)
[2018-03-15] MEDS ORDERED: fentaNYL* 50 MCG/ML 2 ML VIAL (100 MCG VIAL) ONE (07:18)
[2018-03-15] MEDS ORDERED: Midazolam* 1 MG/ML 2 ML VIAL (2 MG) ONE (07:18)
[2018-03-15] MEDS: Tiotropium CAP.INH* CAP.INH/18 MCG (USE ORDER SET !) INH SCH (07:52)
[2018-03-15] MEDS: Mometasone/Formoter 200/5 MDI INH SCH ×2 (07:52→20:43)
[2018-03-15 08:30] LABS: Hematocrit 21 % (35-47); Hemoglobin 6.9 g/dl (12.0-16.0); Mean Corpuscular HGB Conc 33 g/dl (31-36); Mean Corpuscular Hemoglobin 28 pg (27-31); Mean Corpuscular Volume 85 fL (80-97); Mean Platelet Volume 8.7 um3 (7.4-10.4); Platelet Count 184 10^3/ul (150-450); Red Blood Count 2.46 10^6/ul (4.0-5.4); Red Cell Distribution Width 17 % (10.5-15); White Blood Count 12.2 10^3/ul (3.5-10.8)
[2018-03-15] MEDS: Nicotine PATCH 21 MG/24 HR* PATCH TRANSDERM SCH (09:15)
[2018-03-15] MEDS: Atorvastatin* 10 MG TAB PO SCH (09:16)
[2018-03-15] MEDS: Magnesium Oxide TAB* 400 MG PO SCH (09:16)
[2018-03-15] MEDS: PARoxetine HCL TAB* 40 MG PO SCH (09:16)
--- NOTE | 2018-03-15 10:01 | PN ---
Subjective Date of Service: 03/15/18 Interval History: Patient reports she "feels okay". She denies SOB/CP/Dizziness. Denies melena or bloody stools. Agrees to upper endoscopy and plan to give another unit of blood. Offers no further complains. Objective Active Medications: Albuterol (Ventolin 2.5 Mg/3 Ml Neb.Deepti*) 2.5 mg INH [id number] AWAKE PRN PRN Reason: SHORTNESS OF BREATH Last Admin: 03/14/18 09:50 Dose: 2.5 mg Alprazolam (Xanax Tab*) 0.25 mg PO BID PRN PRN Reason: ANXIETY Atorvastatin Calcium (Lipitor*) 5 mg PO DAILY [facility] Last Admin: 03/15/18 09:16 Dose: Not Given Device (Nicotine Mouth Piece*) 1 each INH .USE WITH NICOTROL PRN PRN Reason: CRAVING Docusate Sodium (Colace Cap*) 100 mg PO DAILY PRN PRN Reason: CONSTIPATION Last Admin: 03/11/18 22:01 Dose: 100 mg Pantoprazole Sodium 80 mg/ (Sodium Chloride) 250 mls @ 25 mls/hr IVPB Q10H [facility] PRN Reason: Protocol Last Admin: 03/15/18 01:53 Dose: 25 mls/hr Cefepime HCl 1 gm/ Dextrose 50 mls @ 100 mls/hr IVPB Q12H [facility] Last Admin: 03/15/18 05:50 Dose: 100 mls/hr Iodixanol (Visipaque* 320 (Contrast)) 80 ml IV ONCE [facility] Stop: 03/15/18 11:52 Last Admin: 03/13/18 12:27 Dose: 80 ml Magnesium Oxide (Magox 400 Tab*) 400 mg PO DAILY [facility] Last Admin: 03/15/18 09:16 Dose: Not Given Mometasone Furoate/Formoterol Fumar (Dulera 200/5 Mdi*) 2 puff INH BID [facility] Last Admin: 03/15/18 07:52 Dose: 2 puff Nicotine (Nicotine Inhaler*) 10 mg INH Q2H PRN PRN Reason: CRAVING Nicotine (Nicotine Patch 21 Mg/24 Hr*) 1 patch TRANSDERM DAILY@0800 [facility] Last Admin: 03/15/18 09:15 Dose: 1 patch Ondansetron HCl (Zofran Inj*) 4 mg IV Q6H PRN PRN Reason: NAUSEA Last Admin: 03/12/18 08:26 Dose: 4 mg Paroxetine HCl (Paxil Tab*) 40 mg PO DAILY [facility] Last Admin: 03/15/18 09:16 Dose: Not Given Pharmacy Profile Note (Nicotine Patch Removal Note*) 1 note FOLLOW UP 2100 [facility] Last Admin: 03/14/18 21:09 Dose: 1 note Polyethylene Glycol/Electrolytes (Miralax*) 17 gm PO DAILY PRN PRN Reason: CONSTIPATION Last Admin: 03/11/18 22:01 Dose: 17 gm Tiotropium [place] (Spiriva Cap.Inh*) 1 cap INH DAILY [facility] Last Admin: 03/15/18 07:52 Dose: 1 cap Vital Signs - 8 hr 03/15/18 03/15/18 03/15/18 02:15 02:30 02:45 Temperature Pulse Rate 96 95 96 Respiratory 20 22 22 Rate Blood Pressure 93/44 111/48 104/44 (mmHg) O2 Sat by Pulse 100 100 99 Oximetry 03/15/18 03/15/18 03/15/18 03:00 03:01 03:02 Temperature Pulse Rate 96 94 95 Respiratory 20 21 21 Rate Blood Pressure 93/42 82/40 (mmHg) O2 Sat by Pulse 98 98 98 Oximetry 03/15/18 03/15/18 03/15/18 03:07 04:00 04:04 Temperature 99.2 F Pulse Rate 113 94 96 Respiratory 25 19 20 Rate Blood Pressure 108/52 119/53 (mmHg) O2 Sat by Pulse 96 100 99 Oximetry 03/15/18 03/15/18 03/15/18 05:00 05:01 06:00 Temperature Pulse Rate 99 103 91 Respiratory 20 21 22 Rate Blood Pressure 100/53 93/50 (mmHg) O2 Sat by Pulse 97 97 97 Oximetry 03/15/18 03/15/18 03/15/18 06:01 06:34 07:00 Temperature Pulse Rate 95 94 97 Respiratory 19 19 17 Rate Blood Pressure 111/52 114/53 (mmHg) O2 Sat by Pulse 98 98 98 Oximetry 03/15/18 03/15/18 03/15/18 07:01 08:00 08:01 Temperature 98.1 F Pulse Rate 95 98 96 Respiratory 18 22 20 Rate Blood Pressure 104/53 (mmHg) O2 Sat by Pulse 98 97 97 Oximetry 03/15/18 03/15/18 08:20 09:00 Temperature Pulse Rate 103 Respiratory 18 21 Rate Blood Pressure 103/51 (mmHg) O2 Sat by Pulse 93 Oximetry Oxygen Devices in Use Now: Nasal Cannula Appearance: think elderly female laying in bed resting in NAD. A+O x3 Eyes: No Scleral Icterus, PERRLA Ears/Nose/Mouth/Throat: NL Teeth, Lips, Gums, Mucous Membranes Moist Neck: NL Appearance and Movements; NL JVP Respiratory: Symmetrical Chest Expansion and Respiratory Effort, - - dinished b/ l (mild); goos aeration throughout Cardiovascular: NL Sounds; No Murmurs; No JVD Abdominal: NL Sounds; No Tenderness; No Distention Extremities: No Edema, No Clubbing, Cyanosis Skin: No Rash or Ulcers, No Nodules or Sclerosis Neurological: Alert and Oriented x 3, NL Sensation, NL Muscle Strength and Tone Lines/Tubes/Other Access: Clean, Dry and Intact Peripheral IV Nutrition: Taking PO's Result Diagrams: 03/15/18 08:17 03/14/18 03:06 Additional Lab and Data: Laboratory Results - last 24 hr 03/07/18 03/09/18 03/09/18 04:32 05:12 05:12 WBC 18.6 H RBC 2.46 L Hgb 7.1 L Hct 21 L MCV 87 MCH 29 MCHC 33 RDW 17 H Plt Count 252 MPV 8.2 Neut % (Auto) 89.6 H Lymph % (Auto) 2.6 L Crane % (Auto) 7.3 H Eos % (Auto) 0.5 Baso % (Auto) 0 Absolute Neuts (auto) 16.7 H Absolute Lymphs (auto) 0.5 L Absolute Monos (auto) 1.4 H Absolute Eos (auto) 0.1 Absolute Basos (auto) 0 Absolute Nucleated RBC 0 Nucleated RBC % 0.1 Sodium 141 Potassium 3.8 Chloride 107 Carbon Dioxide 29 Anion Gap 5 BUN 31 H Creatinine 0.47 L Est GFR ( Amer) 161.6 Est GFR (Non-Af Amer) 125.6 BUN/Creatinine Ratio 66.0 H Glucose 95 Calcium 7.3 L Magnesium 1.9 Blood Type O Positive Antibody Screen Negative Crossmatch See Detail Microbiology and Other Data: Microbiology 03/06/18 16:04 Gastric Antrum CLOtest - Final Diagnostic Imaging: Patient Name: YURI LOCK Record#: [id number] Ordering Physician: Lupe Harry NP Acct.#: [id number] : 1930 Age: 87 Sex: F Location: [address] [place] [address]/TELEMETRY Exam Date: 03/13/181112 ADM Status: ADM IN Order Information: CT CHEST W/WO Accession Number: [id number] CPT: 21259 INDICATION: Shortness of breath and clinical concern for pulmonary mass COMPARISON: Noncontrast CT of the chest dated February 27, 2018 TECHNIQUE: Axial source images of the chest were acquired before and after the injection of 80 mL of Visipaque 320 intravenous contrast from just above the lung apices to the base of the diaphragm. Coronal and sagittal reconstructed images were acquired. FINDINGS: The heart is normal in size. There is no evidence of pericardial effusion. There is no evidence of aortic aneurysm or dissection. There is coarse calcification at the arch of the aorta, coronary arteries and aortic ring. There is a cluster of pretracheal lymph nodes measuring approximately 1.4 x 2.1 cm in the axial plane, not significantly changed since the previous CT examination. There are small bibasilar pleural effusions slightly larger on the right than the left. These have increased slightly when compared to the previous CT of the chest. There is compressive atelectasis of the dependent portion of the right lobe. In the right middle lobe there is a subcentimeter coarsely calcified granuloma. Degenerative changes of the thoracic spine include loss of intervertebral disc height and mild anterior marginal osteophyte formation. Limited views of the upper abdomen show no abnormalities. IMPRESSION: 1. Bibasilar pleural effusions larger on the right and the left that are slightly larger when compared to the most recent chest CT dated February 27, 2018. There is adjacent compressive atelectasis of the right lower lobe also progressed when compared to the previous CT of the chest. 2. Top normal mediastinal lymphadenopathy not changed since the previous CT the chest of uncertain clinical significance. 3. Additional chronic and degenerative changes described in body the report. <Electronically signed by Rob Queen MD in OV> 03/13/18 1257 Dictated By: Rob Queen MD Dictated Date/Time: 03/13/18 1257 Transcribed Date/Time: 03/13/18 1234 Copy to: CC:Giovana Humphreys MD; Warren Kaminski MD; Valerie Rosa DO; Trung Bond MD; Lupe Harry NP; Maximiliano Camacho MD REPEAT CXR 1 of 2 Patient Name: YURI LOCK Medical Record#: [id number] Ordering Physician: Virginie Machuca DO Acct.#: [id number] : 1930 Age: 87 Sex: F Location: INTENSIVE CARE UNIT Exam Date: 03/14/18 001 ADM Status: ADM IN Order Information: CHEST AP PORTABLE Accession Number: [id number] CPT: 03235 HISTORY: Shortness of breath COMPARISONS: March 06, 2018 VIEWS: 1: frontal portable view of the chest at 12:30 AM FINDINGS: LINES AND TUBES: None. CARDIOMEDIASTINAL SILHOUETTE: The aorta is tortuous. The cardiomediastinal silhouette is otherwise normal for portable technique. PLEURA: The costophrenic angles are sharp. No pleural abnormalities are noted. LUNG PARENCHYMA: There is hyperinflation. There is prominence of the central pulmonary vasculature. ABDOMEN: The upper abdomen is clear. There is no subphrenic gas. BONES AND SOFT TISSUES: Degenerative changes are noted. IMPRESSION: 1. COPD. 2. PULMONARY VASCULAR CONGESTION. <Electronically signed by Benjie Henry MD in OV> 03/14/18 0756 Dictated By: Benjie Henry MD Dictated Date/Time: 03/14/18 0756 Transcribed Date/Time: 03/14/18 0755 Copy to: CC:Candis Delgado MD; Giovana Humphreys MD; Warren Kaminski MD; Valerie Rosa DO; Trung Bond MD; Virginie Machuca DO Imaging - [facility] Imaging [facility] [id number] [place] [address] [place] [address] ph ([phone]) ph ([phone]) ph ([phone]) 1 of 1 Assess/Plan/Problems-Billing Assessment: 87 yo female PMH severe COPD on chronic noctural O2 transfer from [facility] after melena, acute blood loss anemia. Had been getting cftx->zosyn + overmedication with solumedrol 125mg q8H for several days at [place] for potential COPD exac/pna. EGD with numurous erosions/ulcers and 1 crater in duodenum with visible vessel s/p clipped. Acute on Chronic Hypoxic Respiratory failure, persistent. s/p 10 u pRBC total. - Patient Problems (1) Acute and chronic respiratory failure Comment: - Off vapotherm and feeling better - unclear if this was fluid overload vs. Chronic Resp failure 2nd to Advanced COPD. Has recieved lasix on and off. This morning is oxygenating well on 2L, does not appear to be fluid overloaded. - CT and CXR with no acute infective process (2) Melena Comment: - s/p 10 units PRBCs, with refractory low HgB - HH dropped overnight; plan to give one unit now. Plan for GI Dr. Mclaughlin, to take to OR today for upper endoscopy. - Upper GI bleeding likely 2/2 steroid overdose - Prior EGD with erosions/ulcers, duodenal crater with vissible ulcer - Reconsulted GI 03/12 and restarted protonix drip - NPO (3) COPD (chronic obstructive pulmonary disease) Comment: - Continue dulera and spiriva - Nebs PRN - Finished course of ceftriaxone - Vapotherm off this am - May consider pulmonology consult, once pt is stable from GI bleed and/or if she requires vapotherm again. (4) Leukocytosis Comment: - WBCs remain elevated and has been off steroids - Appreciate Oncology/Heme consult, Dr. Elias feels this is still suppression from steroids and not likely heme-onc issue, CT chest was reviewed by Dr. lEias, please see her consultation (5) Smoker Comment: - Should quit indefinitely - nicotine patch (6) DNR (do not resuscitate) (7) DVT prophylaxis Comment: - SCDs in setting of acute bleeding Status and Disposition: Remain inpatient, guarded. Plan for OR today,
[2018-03-15] MEDS ORDERED: Ondansetron INJ* 2 MG/ML VIAL IV PRN (15:39)
[2018-03-15] MEDS ORDERED: Naloxone* 0.4 MG/ML 1 ML VIAL IV PRN (15:39)
[2018-03-15] MEDS ORDERED: Levalbuterol 0.63MG/3ML NEB* UNIT OF USE INH PRN (15:39)
[2018-03-15] MEDS ORDERED: Lidocaine 2% PF * 5 ML VIAL ONE (15:52)
[2018-03-15] MEDS ORDERED: Propofol* 10 MG/ML 20 ML BTL IV PUSH ONE (15:52)
[2018-03-15 18:41] LABS: Hematocrit 22 % (35-47); Hemoglobin 7.4 g/dl (12.0-16.0)
[2018-03-15] MEDS: Fluconazole 100 MG TAB* TAB PO SCH (20:47)
[2018-03-15] MEDS: Nicotine Patch Removal NOTE FOLLOW UP SCH (21:59)
--- NOTE | 2018-03-15 22:20 | PRO ---
GASTROENTEROLOGY PROCEDURE NOTE: DATE OF PROCEDURE: 03/15/18 PROCEDURE: EGD with control of bleeding. PREOPERATIVE DIAGNOSIS: Apparent ongoing bleeding in this 87-year-old female, who is currently in [facility] intensive care unit. The patient underwent prior endoscopy on 03/06/18 with clipping of an ulcer w ithin the duodenal bulb. Since then, the patient has been on an IV pantoprazole drip of 8 mg per lucas r. She is on high dosed steroids for COPD exacerbation. The patient has required a total of 13 unit s of packed red blood cells with most recent hematocrit after transfusion last night of 21. The patient has received an additional unit of blood. POSTOPERATIVE DIAGNOSIS: 1. Evidence of significant seth esophagitis. No oozing or sites of bleeding noted. 2. Normal stomach with healing of previously noted ulcers and erosions. 3. Prior clip placed, was noted with no bleeding from that site. There are 2 small erosions just be yond the previously placed clip, which are minimally oozing. Endoclip is placed on each of these eros ions just beyond the duodenal bulb. PROCEDURE MEDICATIONS: Per Anesthesia. INSTRUMENT: GF-190 Olympus high-definition gastroscope. DESCRIPTION OF PROCEDURE: Informed consent was obtained prior to performing this procedure. The inst rument was introduced into the mouth and passed through the cervical esophagus under direct visualiza tion. The instrument was then advanced down the esophagus. In the esophagus, there was evidence of significant seth esophagitis, no source of bleeding was noted. The scope was then passed into the gastric cardia fundus, body and antrum. All the previously noted erosions and ulcers have healed wi thin the antrum. The scope was passed into the duodenal bulb and descending duodenum. The previousl y placed Endoclip was noted. There was no sign of oozing from that site and healing of previous eros ion was noted. Just beyond the prior Endoclip was noted to be 2 small erosions with minimal oozing. Each of those sites was Endoclipped with apparent cessation of oozing. The instrument was withdrawn from the patient. The patient tolerated the procedure well and there were no complications. RECOMMENDATIONS: Continue IV pantoprazole drip and to monitor hematocrit. I think there is poor hea ling for some reason in this area due to the high dose IV steroids. Hopefully, bleeding will now cea se. I am going to place the patient on Diflucan 100 mg daily for 7 days, continue IV pantoprazole dr ip and a full liquid diet. [id number]/[facility] #: [id number]
[2018-03-16] MEDS: Pantoprazole IV* 80 MG in NS 0.9% 250 ML* 250 ML IVPB SCH ×2 (05:00→15:02)
[2018-03-16] MEDS: Cefepime(*) 1 GM in D5W 50 ML BAG* 50 ML IVPB SCH ×2 (05:00→16:52)
[2018-03-16 06:04] LABS: ABS Basophils 0 10^3/ul (0-0.2); ABS Eosinophils 0.3 10^3/ul (0-0.6); ABS Lymphocytes 0.6 10^3/ul (1.0-4.8); ABS Monocytes 0.7 10^3/ul (0-0.8); ABS Neutrophils 10.1 10^3/ul (1.5-7.7); ABS Nucleated RBC 0 10^3/ul; Eosinophil % 2.2 % (0-6); Hematocrit 18 % (35-47); Lymphocyte % 4.9 % (25-47); Mean Corpuscular HGB Conc 33 g/dl (31-36); Mean Corpuscular Hemoglobin 28 pg (27-31); Mean Corpuscular Volume 85 fL (80-97); Mean Platelet Volume 8.7 um3 (7.4-10.4); Nucleated Red Blood Cells % 0; Platelet Count 194 10^3/ul (150-450); Red Blood Count 2.17 10^6/ul (4.0-5.4); Red Cell Distribution Width 17 % (10.5-15); White Blood Count 11.7 10^3/ul (3.5-10.8)
[2018-03-16 06:18] LABS: EGFR Non-African American 119.7 (>60)
[2018-03-16] MEDS ORDERED: Fluconazole 100 MG TAB* TAB PO SCH (09:00)
[2018-03-16] MEDS: Mometasone/Formoter 200/5 MDI INH SCH ×2 (09:14→19:44)
[2018-03-16] MEDS: Tiotropium CAP.INH* CAP.INH/18 MCG (USE ORDER SET !) INH SCH (09:15)
[2018-03-16] MEDS: Atorvastatin* 10 MG TAB PO SCH (09:53)
[2018-03-16] MEDS: PARoxetine HCL TAB* 40 MG PO SCH (09:53)
[2018-03-16] MEDS: Nicotine PATCH 21 MG/24 HR* PATCH TRANSDERM SCH (09:54)
[2018-03-16] MEDS: Magnesium Oxide TAB* 400 MG PO SCH (09:54)
--- NOTE | 2018-03-16 11:46 | PN ---
Subjective Date of Service: 03/16/18 Interval History: Patient seen and examined at bedside. Denies fever, chills, shortness of breath , chest discomfort, N/V/D. Pt states that she feels " I have gotten more blood then someone my age should get". Plan to have a family meeting once family arrives, for now she is agreeable to blood transfusion and possible EGD in the AM. Tele: Sinus tach, rate 100-110's Family History: Unchanged from Admission Social History: Unchanged from Admission Past Medical History: Unchanged from Admission Objective Active Medications: Alprazolam (Xanax Tab*) 0.25 mg PO BID PRN Reason: ANXIETY Atorvastatin Calcium (Lipitor*) 5 mg PO DAILY [facility] Device (Nicotine Mouth Piece*) 1 each INH .USE WITH NICOTROL PRN Reason: CRAVING Docusate Sodium (Colace Cap*) 100 mg PO DAILY PRN Reason: CONSTIPATION Fluconazole (Diflucan 100 Mg Tab*) 100 mg PO Q24H DIANN Pantoprazole Sodium 80 mg/ (Sodium Chloride) 250 mls @ 25 mls/hr IVPB Q10H DI[facility] Cefepime HCl 1 gm/ Dextrose 50 mls @ 100 mls/hr IVPB Q12H [facility] Levalbuterol HCl (Xopenex 0.63mg/3ml Neb*) 0.63 mg INH ONCE PRN Reason: SOB/ WHEEZING Stop: 03/16/18 15:38 Magnesium Oxide (Magox 400 Tab*) 400 mg PO DAILY DIANN Mometasone Furoate/Formoterol Fumar (Dulera 200/5 Mdi*) 2 puff INH BID [facility] Nicotine (Nicotine Inhaler*) 10 mg INH Q2H PRN Reason: CRAVING Nicotine (Nicotine Patch 21 Mg/24 Hr*) 1 patch TRANSDERM DAILY@0800 [facility] Ondansetron HCl (Zofran Inj*) 4 mg IV Q6H PRN Reason: NAUSEA Paroxetine HCl (Paxil Tab*) 40 mg PO DAILY [facility] Pharmacy Profile Note (Nicotine Patch Removal Note*) 1 note FOLLOW UP 2100 DIANN Polyethylene Glycol/Electrolytes (Miralax*) 17 gm PO DAILY PRN Reason: CONSTIPATION Tiotropium [place] (Spiriva Cap.Inh*) 1 cap INH DAILY [facility] Vital Signs - 8 hr 03/16/18 03/16/18 03/16/18 04:00 04:01 04:15 Temperature 98.2 F Pulse Rate 120 120 Respiratory 30 30 Rate Blood Pressure 101/69 (mmHg) O2 Sat by Pulse 98 100 Oximetry 03/16/18 03/16/18 03/16/18 05:00 06:00 07:00 Temperature Pulse Rate 104 111 112 Respiratory 20 22 22 Rate Blood Pressure 109/58 107/51 115/61 (mmHg) O2 Sat by Pulse 99 95 99 Oximetry 03/16/18 03/16/18 03/16/18 07:23 08:00 08:27 Temperature 97.3 F Pulse Rate 108 114 Respiratory 30 40 Rate Blood Pressure 97/51 93/48 (mmHg) O2 Sat by Pulse 96 85 Oximetry 03/16/18 03/16/18 03/16/18 09:00 09:11 09:12 Temperature Pulse Rate 113 120 Respiratory 33 20 Rate Blood Pressure 111/54 (mmHg) O2 Sat by Pulse 86 99 100 Oximetry 03/16/18 03/16/18 03/16/18 09:15 09:16 09:30 Temperature Pulse Rate 116 120 126 Respiratory 23 25 24 Rate Blood Pressure 105/49 106/51 (mmHg) O2 Sat by Pulse 98 98 97 Oximetry 03/16/18 03/16/18 03/16/18 09:45 10:00 11:00 Temperature Pulse Rate 111 112 106 Respiratory 38 34 27 Rate Blood Pressure 92/47 (mmHg) O2 Sat by Pulse 97 94 99 Oximetry 03/16/18 03/16/18 11:17 11:18 Temperature 99.3 F Pulse Rate 111 Respiratory 27 Rate Blood Pressure 97/49 (mmHg) O2 Sat by Pulse 97 Oximetry Oxygen Devices in Use Now: Nasal Cannula - 4L Appearance: NAD, sitting up in bed Respiratory: Symmetrical Chest Expansion and Respiratory Effort, Clear to Auscultation - , diminished Cardiovascular: NL Sounds; No Murmurs; No JVD, RRR Abdominal: NL Sounds; No Tenderness; No Distention Extremities: No Edema Skin: No Rash or Ulcers Neurological: Alert and Oriented x 3, NL Muscle Strength and Tone Lines/Tubes/Other Access: Clean, Dry and Intact Peripheral IV - site benign Nutrition: Taking PO's Result Diagrams: 03/16/18 05:50 03/16/18 05:50 Microbiology and Other Data: Microbiology 03/06/18 16:04 Gastric Antrum CLOtest - Final Microbiology 03/14/18 22:35 Urine Urine Culture - Preliminary Enterococcus Faecium Diagnostic Imagin. CT CHEST W/WO Exam Date: 03/13/18 1113 IMPRESSION: 1. Bibasilar pleural effusions larger on the right and the left that are slightly larger when compared to the most recent chest CT dated February 27, 2018. There is adjacent compressive atelectasis of the right lower lobe also progressed when compared to the previous CT of the chest. 2. Top normal mediastinal lymphadenopathy not changed since the previous CT the chest of uncertain clinical significance. 3. Additional chronic and degenerative changes described in body the report. 2. CHEST AP PORTABLE Exam Date: 03/14/18 0018 IMPRESSION: 1. COPD. 2. PULMONARY VASCULAR CONGESTION. Assess/Plan/Problems-Billing Assessment: Ms. Haddad is an 87 yo female PMH severe COPD on chronic noctural O2 transfer from [facility] after melena, acute blood loss anemia. Had been getting cftx->zosyn + overmedication with solumedrol 125mg q8H for several days at [facility] for potential COPD exac/pna. EGD with numurous erosions/ulcers and 1 crater in duodenum with visible vessel s/p clip. Acute on Chronic Hypoxic Respiratory failure, persistent. s/p 12 u pRBC total. - Patient Problems (1) Acute and chronic respiratory failure Current Visit: Yes Status: Acute Code(s): J96.20 - ACUTE AND CHR RESP FAILURE, UNSP W HYPOXIA OR HYPERCAPNIA SNOMED Code(s): 95830525 Comment: - Now off vapotherm and feeling better - Unclear if this was fluid overload vs. chronic Resp failure 2nd to Advanced COPD. - Has recieved lasix on and off. - This morning is oxygenating well on 4L, does not appear to be fluid overloaded. Will attempt to further wean O2. (2) Melena Code(s): K92.1 - MELENA SNOMED Code(s): 7481411 Comment: - s/p 12 units PRBCs, with refractory low HgB - HH dropped overnight; plan to give two units today and recheck HH later today. - S/P EGD x2 once on 03/06 and again on 03/15 - Upper GI bleeding likely 2/2 steroid overdose. Prior EGD with erosions/ulcers , duodenal crater with vissible ulcer - Continue Protonix gtt - Plan for possible EGD in the AM (3) Anemia Code(s): D64.9 - ANEMIA, UNSPECIFIED SNOMED Code(s): 056510969 Comment: - Acute blood loss anemia secondary to upper GI bleed - Has received 12 units of PRBCs and will receive another 2 today - Continue to monitor HH (4) Esophageal candidiasis Code(s): B37.81 - CANDIDAL ESOPHAGITIS SNOMED Code(s): 26632743 Comment: - Seen on EGD - Continuediflucan (5) COPD (chronic obstructive pulmonary disease) Code(s): J44.9 - CHRONIC OBSTRUCTIVE PULMONARY DISEASE, UNSPECIFIED SNOMED Code(s): 06508881 Comment: - Improving - Completed course of ceftriaxone - Continue Nebs PRN, dulera and spiriva - Consider pulmonology consult, once pt is stable from GI bleed and/or if she requires vapotherm again. (6) Leukocytosis Code(s): D72.829 - ELEVATED WHITE BLOOD CELL COUNT, UNSPECIFIED SNOMED Code(s) : 100713468 Comment: - Improving, but WBCs remains elevated and has been off steroids - Appreciate Oncology/Heme consult, Dr. Elias feels this is still suppression from steroids and not likely heme-onc issue, CT chest was reviewed by Dr. Elias, please see her consultation - UA with Enterococcus Faecium 10-25 K, will hold on further ABX at this time (7) Smoker Code(s): F17.200 - NICOTINE DEPENDENCE, UNSPECIFIED, UNCOMPLICATED SNOMED Code (s): 03392811 Comment: - Should quit indefinitely - Continue nicotine patch (8) HTN (hypertension) Code(s): I10 - ESSENTIAL (PRIMARY) HYPERTENSION SNOMED Code(s): 92830929 Comment: - SBP 90-110's - Continue to monitor (9) HLD (hyperlipidemia) Code(s): E78.5 - HYPERLIPIDEMIA, UNSPECIFIED SNOMED Code(s): 57897969 Comment: - Continue statin (10) Anxiety and depression Code(s): F41.9 - ANXIETY DISORDER, UNSPECIFIED; F32.9 - MAJOR DEPRESSIVE DISORDER, SINGLE EPISODE, UNSPECIFIED SNOMED Code(s): 968081140 (11) DVT prophylaxis Code(s): FOO4432 - SNOMED Code(s): 742073838 Comment: - SCDs in setting of acute bleeding (12) DNR (do not resuscitate) Status and Disposition: Inpatient, guarded. Discharge when medically stable.
[2018-03-16 15:03] LABS: ABS Basophils 0 10^3/ul (0-0.2); ABS Eosinophils 0.2 10^3/ul (0-0.6); ABS Lymphocytes 0.5 10^3/ul (1.0-4.8); ABS Monocytes 0.6 10^3/ul (0-0.8); ABS Neutrophils 7.9 10^3/ul (1.5-7.7); ABS Nucleated RBC 0 10^3/ul; Eosinophil % 2.3 % (0-6); Hematocrit 23 % (35-47); Hemoglobin 7.5 g/dl (12.0-16.0); Lymphocyte % 5.1 % (25-47); Mean Corpuscular HGB Conc 33 g/dl (31-36); Mean Corpuscular Hemoglobin 28 pg (27-31); Mean Corpuscular Volume 85 fL (80-97); Mean Platelet Volume 9.1 um3 (7.4-10.4); Nucleated Red Blood Cells % 0.1; Platelet Count 189 10^3/ul (150-450); Red Blood Count 2.67 10^6/ul (4.0-5.4); Red Cell Distribution Width 16 % (10.5-15); White Blood Count 9.2 10^3/ul (3.5-10.8)
[2018-03-16] MEDS: Nicotine Patch Removal NOTE FOLLOW UP SCH ×2 (18:56→21:11)
[2018-03-16] MEDS: Fluconazole 100 MG TAB* TAB PO SCH (21:07)
[2018-03-17] MEDS: Pantoprazole IV* 80 MG in NS 0.9% 250 ML* 250 ML IVPB SCH ×3 (00:57→22:27)
[2018-03-17 07:02] LABS: ABS Basophils 0 10^3/ul (0-0.2); ABS Eosinophils 0.4 10^3/ul (0-0.6); ABS Lymphocytes 0.7 10^3/ul (1.0-4.8); ABS Monocytes 0.8 10^3/ul (0-0.8); ABS Nucleated RBC 0 10^3/ul; Eosinophil % 4.1 % (0-6); Hematocrit 17 % (35-47); Lymphocyte % 7.5 % (25-47); Mean Corpuscular HGB Conc 35 g/dl (31-36); Mean Corpuscular Hemoglobin 29 pg (27-31); Mean Corpuscular Volume 84 fL (80-97); Mean Platelet Volume 8.6 um3 (7.4-10.4); Nucleated Red Blood Cells % 0; Platelet Count 207 10^3/ul (150-450); Red Blood Count 1.98 10^6/ul (4.0-5.4); Red Cell Distribution Width 16 % (10.5-15); White Blood Count 8.8 10^3/ul (3.5-10.8)
[2018-03-17 07:04] LABS: Hemoglobin 5.7 g/dl (12.0-16.0)
[2018-03-17 07:27] LABS: EGFR Non-African American 114.3 (>60)
[2018-03-17] MEDS: Nicotine PATCH 21 MG/24 HR* PATCH TRANSDERM SCH (08:00)
[2018-03-17] MEDS: Atorvastatin* 10 MG TAB PO SCH (09:00)
[2018-03-17] MEDS: Magnesium Oxide TAB* 400 MG PO SCH (09:00)
[2018-03-17] MEDS: PARoxetine HCL TAB* 40 MG PO SCH (09:00)
--- NOTE | 2018-03-17 09:37 | PN ---
Subjective Date of Service: 03/17/18 Interval History: Patient seen and examined at bedside. [place] fever, chills, lightheadedness or dizziness, shortness of breath, chest discomfort, N/V/D. Pt's last stool with melena was last evening, none so far today. Pt is much more quiet today then yesterday, yesterday she was joking in the morning. Pt is agreeable to 2 more units of PRBCs today and possible EGD later. Tele: Sinus tach, rate 100-110's Family History: Unchanged from Admission Social History: Unchanged from Admission Past Medical History: Unchanged from Admission Objective Active Medications: Alprazolam (Xanax Tab*) 0.25 mg PO BID PRN Reason: ANXIETY Atorvastatin Calcium (Lipitor*) 5 mg PO DAILY [facility] Device (Nicotine Mouth Piece*) 1 each INH .USE WITH NICOTROL PRN Reason: CRAVING Docusate Sodium (Colace Cap*) 100 mg PO DAILY PRN Reason: CONSTIPATION Fluconazole (Diflucan 100 Mg Tab*) 100 mg PO Q24H [facility] Pantoprazole Sodium 80 mg/ (Sodium Chloride) 250 mls @ 25 mls/hr IVPB Q10H [facility] Magnesium Oxide (Magox 400 Tab*) 400 mg PO DAILY [facility] Mometasone Furoate/Formoterol Fumar (Dulera 200/5 Mdi*) 2 puff INH BID [facility] Nicotine (Nicotine Inhaler*) 10 mg INH Q2H PRN Reason: CRAVING Nicotine (Nicotine Patch 21 Mg/24 Hr*) 1 patch TRANSDERM DAILY@0800 [facility] Ondansetron HCl (Zofran Inj*) 4 mg IV Q6H PRN Reason: NAUSEA Paroxetine HCl (Paxil Tab*) 40 mg PO DAILY [facility] Pharmacy Profile Note (Nicotine Patch Removal Note*) 1 note FOLLOW UP 2100 [facility] Polyethylene Glycol/Electrolytes (Miralax*) 17 gm PO DAILY PRN Reason: CONSTIPATION Tiotropium [place] (Spiriva Cap.Inh*) 1 cap INH DAILY [facility] Vital Signs - 8 hr 03/17/18 03/17/18 03/17/18 02:00 03:00 04:00 Temperature 98 F Pulse Rate 102 99 99 Respiratory 21 18 19 Rate Blood Pressure 106/50 (mmHg) O2 Sat by Pulse 92 100 100 Oximetry 03/17/18 03/17/18 03/17/18 05:00 06:00 07:42 Temperature 98.7 F Pulse Rate 100 105 Respiratory 17 37 Rate Blood Pressure (mmHg) O2 Sat by Pulse 99 100 Oximetry Oxygen Devices in Use Now: Nasal Cannula - 2.5L Appearance: NAD, laying in bed Ears/Nose/Mouth/Throat: Mucous Membranes Moist Respiratory: Symmetrical Chest Expansion and Respiratory Effort, - - Lung sounds with scattered rhonchi bilateral Cardiovascular: NL Sounds; No Murmurs; No JVD, RRR Abdominal: NL Sounds; No Tenderness; No Distention Extremities: No Edema Skin: No Rash or Ulcers Neurological: Alert and Oriented x 3, NL Muscle Strength and Tone Lines/Tubes/Other Access: Clean, Dry and Intact Peripheral IV - site benign Nutrition: Taking PO's Result Diagrams: 03/17/18 06:50 03/17/18 06:50 Microbiology and Other Data: Microbiology 03/06/18 16:04 Gastric Antrum CLOtest - Final Microbiology 03/14/18 22:35 Urine Urine Culture - Preliminary Enterococcus Faecium Diagnostic Imagin. CT CHEST W/WO Exam Date: 03/13/18 1113 IMPRESSION: 1. Bibasilar pleural effusions larger on the right and the left that are slightly larger when compared to the most recent chest CT dated February 27, 2018. There is adjacent compressive atelectasis of the right lower lobe also progressed when compared to the previous CT of the chest. 2. Top normal mediastinal lymphadenopathy not changed since the previous CT the chest of uncertain clinical significance. 3. Additional chronic and degenerative changes described in body the report. 2. CHEST AP PORTABLE Exam Date: 03/14/18 0018 IMPRESSION: 1. COPD. 2. PULMONARY VASCULAR CONGESTION. Assess/Plan/Problems-Billing Assessment: Ms. Haddad is an 87 yo female PMH severe COPD on chronic noctural O2 transfer from [facility] after melena, acute blood loss anemia. Had been getting cftx->zosyn + overmedication with solumedrol 125mg q8H for several days at [facility] for potential COPD exac/pna. EGD with numurous erosions/ulcers and 1 crater in duodenum with visible vessel s/p clip. Acute on Chronic Hypoxic Respiratory failure, persistent. s/p 12 u pRBC total. - Patient Problems (1) Acute and chronic respiratory failure Current Visit: Yes Status: Acute Code(s): J96.20 - ACUTE AND CHR RESP FAILURE, UNSP W HYPOXIA OR HYPERCAPNIA SNOMED Code(s): 34825625 Comment: - Now off vapotherm and feeling better - Unclear if this was fluid overload vs. chronic Resp failure 2nd to Advanced COPD. - Has recieved lasix on and off - This morning is oxygenating well on 2L, does not appear to be fluid overloaded. Will attempt to further wean O2. (2) Melena Code(s): K92.1 - MELENA SNOMED Code(s): 5025037 Comment: - s/p 15 units PRBCs, with refractory low HgB - HH dropped overnight; plan to give two units today and recheck HH later today. - S/P EGD x2 once on 03/06 and again on 03/15 - Upper GI bleeding likely 2/2 steroid overdose. Prior EGD with erosions/ulcers , duodenal crater with vissible ulcer - Continue Protonix gtt - Plan for possible EGD later today (3) Anemia Code(s): D64.9 - ANEMIA, UNSPECIFIED SNOMED Code(s): 734591540 Comment: - Acute blood loss anemia secondary to upper GI bleed - Has received 15 units of PRBCs and will receive another 2 today - Continue to monitor HH (4) Esophageal candidiasis Code(s): B37.81 - CANDIDAL ESOPHAGITIS SNOMED Code(s): 67812417 Comment: - Seen on EGD - Continue diflucan (5) COPD (chronic obstructive pulmonary disease) Code(s): J44.9 - CHRONIC OBSTRUCTIVE PULMONARY DISEASE, UNSPECIFIED SNOMED Code(s): 93827967 Comment: - Improving - Completed course of ceftriaxone - Continue Nebs PRN, dulera and spiriva - Consider pulmonology consult, once pt is stable from GI bleed and/or if she requires vapotherm again. (6) Leukocytosis Code(s): D72.829 - ELEVATED WHITE BLOOD CELL COUNT, UNSPECIFIED SNOMED Code(s) : 168913271 Comment: - Resolved - Appreciate Oncology/Heme consult, Dr. Elias feels this is still suppression from steroids and not likely heme-onc issue, CT chest was reviewed by Dr. Elias, please see her consultation - UA with Enterococcus Faecium 10-25 K, will hold on further ABX at this time (7) Smoker Code(s): F17.200 - NICOTINE DEPENDENCE, UNSPECIFIED, UNCOMPLICATED SNOMED Code (s): 82447517 Comment: - Should quit indefinitely - Continue nicotine patch (8) HTN (hypertension) Code(s): I10 - ESSENTIAL (PRIMARY) HYPERTENSION SNOMED Code(s): 13553792 Comment: - SBP 80-100's - Continue to monitor (9) HLD (hyperlipidemia) Code(s): E78.5 - HYPERLIPIDEMIA, UNSPECIFIED SNOMED Code(s): 25573915 Comment: - Continue statin (10) Anxiety and depression Code(s): F41.9 - ANXIETY DISORDER, UNSPECIFIED; F32.9 - MAJOR DEPRESSIVE DISORDER, SINGLE EPISODE, UNSPECIFIED SNOMED Code(s): 661656717 Comment: - Continue xanax PRN (11) DVT prophylaxis Code(s): DYF7491 - SNOMED Code(s): 370559538 Comment: - SCDs in setting of acute bleeding (12) DNR (do not resuscitate) Status and Disposition: Inpatient, guarded. Discharge when medically stable.
[2018-03-17] MEDS: Mometasone/Formoter 200/5 MDI INH SCH ×2 (09:43→19:26)
[2018-03-17] MEDS: Tiotropium CAP.INH* CAP.INH/18 MCG (USE ORDER SET !) INH SCH (09:43)
[2018-03-17] MEDS ORDERED: Midazolam* 1 MG/ML 5 ML VIAL (5 MG) ONE (13:44)
[2018-03-17] MEDS ORDERED: fentaNYL* 50 MCG/ML 2 ML VIAL (100 MCG VIAL) ONE (13:45)
--- NOTE | 2018-03-17 14:10 | RAD ---
Indication: Decreased hemoglobin. Red blood cells were tagged with technetium 99m pyrophosphate. 26 mCi of technetium 99 and was used. Serial images were obtained after reinjection of tagged red blood cells. There is normal activity kidneys, liver and urinary bladder. No evidence of any activity is noted casting. IMPRESSION: No definite obvious source of bleeding from the GI study. Normal physiologic activity is noted.
[2018-03-17] MEDS: Nicotine Patch Removal NOTE FOLLOW UP SCH (19:36)
[2018-03-17] MEDS: Fluconazole 100 MG TAB* TAB PO SCH (20:04)
[2018-03-17 21:39] LABS: Hematocrit 21 % (35-47); Hemoglobin 7.4 g/dl (12.0-16.0)
[2018-03-17 22:04] LABS: INR 1.02 (0.77-1.02)
[2018-03-18] MEDS: Pantoprazole IV* 80 MG in NS 0.9% 250 ML* 250 ML IVPB SCH ×2 (07:45→17:08)
[2018-03-18] MEDS: Nicotine PATCH 21 MG/24 HR* PATCH TRANSDERM SCH (08:54)
[2018-03-18] MEDS: Atorvastatin* 10 MG TAB PO SCH (08:55)
[2018-03-18] MEDS: PARoxetine HCL TAB* 40 MG PO SCH (08:55)
[2018-03-18] MEDS: Magnesium Oxide TAB* 400 MG PO SCH (08:55)
[2018-03-18] MEDS: Tiotropium CAP.INH* CAP.INH/18 MCG (USE ORDER SET !) INH SCH (09:14)
[2018-03-18] MEDS: Mometasone/Formoter 200/5 MDI INH SCH ×2 (09:15→20:29)
--- NOTE | 2018-03-18 13:47 | PN ---
Subjective Date of Service: 03/18/18 Interval History: Patient seen and examined at bedside. Denies fever, chills, shortness of breath (at baseline), chest discomfort, N/V/D. Discussed with Pt and Family, HESHAM and we completed a new form. The family would like to have an HH today and again in the AM. Yelena wishes to NO LONGER have blood transfusions. The plan is for discharge to home in the AM with Hospice. Tele: Sinus tach, rate 90-100's. Family History: Unchanged from Admission Social History: Unchanged from Admission Past Medical History: Unchanged from Admission Objective Active Medications: Alprazolam (Xanax Tab*) 0.25 mg PO BID PRN Reason: ANXIETY Atorvastatin Calcium (Lipitor*) 5 mg PO DAILY [facility] Device (Nicotine Mouth Piece*) 1 each INH .USE WITH NICOTROL PRN Reason: CRAVING Docusate Sodium (Colace Cap*) 100 mg PO DAILY PRN Reason: CONSTIPATION Fluconazole (Diflucan 100 Mg Tab*) 100 mg PO Q24H DIANN Pantoprazole Sodium 80 mg/ (Sodium Chloride) 250 mls @ 25 mls/hr IVPB Q10H DIANN Magnesium Oxide (Magox 400 Tab*) 400 mg PO DAILY [facility] Mometasone Furoate/Formoterol Fumar (Dulera 200/5 Mdi*) 2 puff INH BID DIANN Nicotine (Nicotine Inhaler*) 10 mg INH Q2H PRN Reason: CRAVING Nicotine (Nicotine Patch 21 Mg/24 Hr*) 1 patch TRANSDERM DAILY@0800 [facility] Ondansetron HCl (Zofran Inj*) 4 mg IV Q6H PRN Reason: NAUSEA Paroxetine HCl (Paxil Tab*) 40 mg PO DAILY [facility] Pharmacy Profile Note (Nicotine Patch Removal Note*) 1 note FOLLOW UP 2100 [facility] Polyethylene Glycol/Electrolytes (Miralax*) 17 gm PO DAILY PRN Reason: CONSTIPATION Tiotropium [place] (Spiriva Cap.Inh*) 1 cap INH DAILY [facility] Vital Signs - 8 hr 03/18/18 03/18/18 03/18/18 05:45 06:00 06:15 Temperature Pulse Rate 88 95 105 Respiratory 16 20 22 Rate Blood Pressure 125/65 124/64 144/76 (mmHg) O2 Sat by Pulse 99 97 97 Oximetry 03/18/18 03/18/18 03/18/18 06:30 06:45 07:00 Temperature Pulse Rate 85 88 95 Respiratory 18 22 31 Rate Blood Pressure 132/69 129/64 116/62 (mmHg) O2 Sat by Pulse 98 98 95 Oximetry 03/18/18 03/18/18 03/18/18 07:15 07:30 07:45 Temperature Pulse Rate 94 83 84 Respiratory 39 22 19 Rate Blood Pressure 102/59 112/56 127/60 (mmHg) O2 Sat by Pulse 92 96 99 Oximetry 03/18/18 03/18/18 03/18/18 08:00 08:15 08:30 Temperature 97.3 F Pulse Rate 103 96 95 Respiratory 39 29 23 Rate Blood Pressure 127/65 124/65 113/64 (mmHg) O2 Sat by Pulse 94 98 97 Oximetry 03/18/18 03/18/18 03/18/18 08:45 09:00 09:02 Temperature Pulse Rate 98 99 Respiratory 28 34 22 Rate Blood Pressure 120/64 86/73 (mmHg) O2 Sat by Pulse 97 78 Oximetry 03/18/18 03/18/18 03/18/18 09:16 09:17 09:30 Temperature Pulse Rate 93 102 Respiratory 22 27 36 Rate Blood Pressure 104/72 121/54 (mmHg) O2 Sat by Pulse 97 95 Oximetry 03/18/18 03/18/18 03/18/18 09:45 10:00 10:15 Temperature Pulse Rate 97 Respiratory 49 42 35 Rate Blood Pressure 118/81 95/55 110/55 (mmHg) O2 Sat by Pulse Oximetry 03/18/18 03/18/18 03/18/18 10:30 10:45 11:00 Temperature Pulse Rate 102 105 Respiratory 40 35 31 Rate Blood Pressure 105/49 108/53 94/57 (mmHg) O2 Sat by Pulse 96 93 Oximetry 03/18/18 03/18/18 03/18/18 11:15 11:30 11:45 Temperature Pulse Rate 106 99 105 Respiratory 34 40 34 Rate Blood Pressure 105/53 104/54 102/50 (mmHg) O2 Sat by Pulse 97 91 98 Oximetry 03/18/18 03/18/18 03/18/18 12:00 12:15 12:31 Temperature 97.7 F Pulse Rate 104 104 107 Respiratory 31 32 33 Rate Blood Pressure 96/50 98/48 101/59 (mmHg) O2 Sat by Pulse 98 95 94 Oximetry 03/18/18 03/18/18 12:45 13:00 Temperature Pulse Rate 106 101 Respiratory 31 33 Rate Blood Pressure 101/53 107/54 (mmHg) O2 Sat by Pulse 95 97 Oximetry Oxygen Devices in Use Now: Nasal Cannula - 5L Appearance: NAD, sitting up in bed Ears/Nose/Mouth/Throat: Mucous Membranes Moist Respiratory: Symmetrical Chest Expansion and Respiratory Effort, Clear to Auscultation - , few scattered rhonchi Cardiovascular: NL Sounds; No Murmurs; No JVD, RRR - , tachy Abdominal: NL Sounds; No Tenderness; No Distention Extremities: No Edema Skin: No Rash or Ulcers Neurological: Alert and Oriented x 3, NL Muscle Strength and Tone Lines/Tubes/Other Access: Clean, Dry and Intact Peripheral IV - site benign Nutrition: Taking PO's Result Diagrams: 03/19/18 05:51 03/17/18 06:50 Microbiology and Other Data: Microbiology 03/06/18 16:04 Gastric Antrum CLOtest - Final Microbiology 03/14/18 22:35 Urine Urine Culture - Preliminary Enterococcus Faecium Diagnostic Imagin. CT CHEST W/WO Exam Date: 03/13/18 1113 IMPRESSION: 1. Bibasilar pleural effusions larger on the right and the left that are slightly larger when compared to the most recent chest CT dated February 27, 2018. There is adjacent compressive atelectasis of the right lower lobe also progressed when compared to the previous CT of the chest. 2. Top normal mediastinal lymphadenopathy not changed since the previous CT the chest of uncertain clinical significance. 3. Additional chronic and degenerative changes described in body the report. 2. CHEST AP PORTABLE Exam Date: 03/14/18 0018 IMPRESSION: 1. COPD. 2. PULMONARY VASCULAR CONGESTION. Assess/Plan/Problems-Billing Assessment: Ms. Haddad is an 87 yo female PMH severe COPD on chronic noctural O2 transfer from [facility] after melena, acute blood loss anemia. Had been getting cftx->zosyn + overmedication with solumedrol 125mg q8H for several days at [place] for potential COPD exac/pna. EGD with numurous erosions/ulcers and 1 crater in duodenum with visible vessel s/p clip. Acute on Chronic Hypoxic Respiratory failure, persistent. s/p 12 u pRBC total. - Patient Problems (1) Acute and chronic respiratory failure Current Visit: Yes Status: Acute Code(s): J96.20 - ACUTE AND CHR RESP FAILURE, UNSP W HYPOXIA OR HYPERCAPNIA SNOMED Code(s): 97543258 Comment: - Now off vapotherm and feeling better - Unclear if this was fluid overload vs. chronic Resp failure 2nd to Advanced COPD. - Has recieved lasix on and off - This morning is oxygenating on 5L, does not appear to be fluid overloaded. Will attempt to further wean O2. (2) Melena Code(s): K92.1 - MELENA SNOMED Code(s): 3971191 Comment: - s/p 17 units PRBCs, with refractory low HgB - HH stable, will recheck again today and in the AM - S/P EGD x3 once on 03/06 with 1 clip placed, again on 03/15 with 2 clips placed , and again on 03/17 wutg 2 clips placed - Upper GI bleeding likely 2/2 steroid overdose. Prior EGD with erosions/ulcers , duodenal crater with vissible ulcer - Continue Protonix gtt (3) Anemia Code(s): D64.9 - ANEMIA, UNSPECIFIED SNOMED Code(s): 167330550 Comment: - Acute blood loss anemia secondary to upper GI bleed - Has received a total 17 units of PRBCs - Recheck HH now and again in the AM (4) Esophageal candidiasis Code(s): B37.81 - CANDIDAL ESOPHAGITIS SNOMED Code(s): 15684679 Comment: - Seen on EGD - Continue diflucan (5) COPD (chronic obstructive pulmonary disease) Code(s): J44.9 - CHRONIC OBSTRUCTIVE PULMONARY DISEASE, UNSPECIFIED SNOMED Code(s): 23618260 Comment: - Improving - Completed course of ceftriaxone - Continue Nebs PRN, dulera and spiriva - Consider pulmonology consult, once pt is stable from GI bleed and/or if she requires vapotherm again. (6) Leukocytosis Code(s): D72.829 - ELEVATED WHITE BLOOD CELL COUNT, UNSPECIFIED SNOMED Code(s) : 478914221 Comment: - Resolved - Appreciate Oncology/Heme consult, Dr. Elias feels this is still suppression from steroids and not likely heme-onc issue, CT chest was reviewed by Dr. Elias, please see her consultation - UA with Enterococcus Faecium 10-25 K, will hold on further ABX at this time (7) Smoker Code(s): F17.200 - NICOTINE DEPENDENCE, UNSPECIFIED, UNCOMPLICATED SNOMED Code (s): 09643961 Comment: - Should quit indefinitely - Continue nicotine patch (8) HTN (hypertension) Code(s): I10 - ESSENTIAL (PRIMARY) HYPERTENSION SNOMED Code(s): 41521446 Comment: - SBP 90-100's - Continue to monitor (9) HLD (hyperlipidemia) Code(s): E78.5 - HYPERLIPIDEMIA, UNSPECIFIED SNOMED Code(s): 17647398 Comment: - Continue statin (10) Anxiety and depression Code(s): F41.9 - ANXIETY DISORDER, UNSPECIFIED; F32.9 - MAJOR DEPRESSIVE DISORDER, SINGLE EPISODE, UNSPECIFIED SNOMED Code(s): 596823924 Comment: - Continue xanax PRN (11) DVT prophylaxis Code(s): QWH5376 - SNOMED Code(s): 450041232 Comment: - SCDs in setting of acute bleeding (12) DNR (do not resuscitate) Status and Disposition: Inpatient, guarded. Plan for discharge to home on Hospice in the AM. Attending: Chani Bowles
[2018-03-18 13:58] LABS: Hematocrit 22 % (35-47); Hemoglobin 7.6 g/dl (12.0-16.0)
--- NOTE | 2018-03-18 18:22 | PRO ---
DATE OF PROCEDURE: 03/17/18 REFERRING PHYSICIAN: Giovana Humphreys* PROCEDURE: Upper gastrointestinal endoscopy and placement of 2 clips in the apex of duodenal bulb where flat red stigmata seen. INDICATIONS: This 87-year-old woman hospitalized now 2 weeks with exacerbation of COPD and GI bleeding, status post 16 units transfusion. This morning had a hemoglobin of 5.7, down from 7.5. She had not had any vomiting. She has had some dark stools and BUN tracked upwards from 30 on 03/14/18 to 40 with Cr remaining at 0.51. She had had upper endoscopy 03/06/18 with antral erosions and small ulcers seen and also ulcerations in the duodenal bulb, apex and sweep, placement of a clip over an oozing erosion by Dr. Hess. Nine days later, 03/15/18, two additional clips were placed in the duodenal bulb. The gastric antrum appeared healed. Monilia was seen in the esophagus, but there was no inflammatory sign. After extensive discussion about options including transfer for potential coil or palliative care and an intermediate course, involving a third endoscopy and bleeding scan, that third option was chosen. She had a bleeding scan done before the endoscopy and this was actually normal. Blood tracer was well distributed in the blood volume and renal clearance to pacify the bladder. As she was in the intensive care unit, the procedure was done there. ENDOSCOPIST: Dr. Pickard MEDICATIONS: Midazolam 4 in 0.5 mg increments, tolerated well. FINDINGS: She is a frail, elderly, chronically ill-appearing woman, in no overt distress. She actually tolerates lying supine fine and does not appear to be in any respiratory distress. EGD: Larynx - limited views appeared normal with some red vascular ectasias on the arytenoids. There are not fully formed AVMs, there is no blood, there is no monilia. Esophagus - easily entered and the mucosa is normal in the upper, mid and lower esophagus with the EG junction at about 37. No monilia is present. There are no erosions. Stomach - small to medium hiatal hernia with a minimal ring, but no erosions. Stomach - on entry, there was a small pool of blood in the high body layering at the greater curvature with a small clot. It was aspirated up and no underlying lesion was seen. There were a couple of suction artifacts created in the course of doing this but really no intrinsic disease and no blood welled up from the stomach. This area was reexamined 15 to 20 minutes later, again no blood reaccumulated. Views of the gastric fundus on retroflexion were normal. The gastric antrum appeared normal and healed. Duodenum - the pylorus appeared normal as did the proximal three quarters of the bulb. At the apex of the bulb, there was a linear healing ulceration extending from 1 to 4 o'clock orientation with some wisps of blood from it. They were old, black and minimal. No fresh bleeding was seen. Just a couple of centimeters downstream on the opposite wall, a small red spot was seen seemingly at the confluence of a couple of healing erosions. Yet another centimeter to downstream were 3 clips, seemingly aimed at erosions. They were not associated with any bleeding stigmata. Once into the free second portion of the duodenum, views were normal as were views of third portion of the duodenum. Looking at the apex of the duodenum, again it was elected to place clips on the areas of stigmata, which was a couple of centimeters proximal to the previous clip placements. They were done with good localization. There was no induced bleeding. The procedure was terminated. IMPRESSION: 1. Small to medium hiatal hernia. 2. Normal esophagus - monilia resolved. 3. Normal gastric antrum - ulcers healed. 4. Duodenal erosions - healing ulcers - persistent stigmata of bleeding are present and 2 additional clips placed. Clearly the limits of therapeutic endoscopy have been reached. Options are limited as she appeared to be a very poor surgical candidate. Whether or not she would want to consider embolization and whether or not an interventional radiologist would offer that therapy is unclear. The bleeding scan being negative, have to bolster the case that the visualized gastroduodenal pathology has been responsible for the bleeding from the beginning as does the small pool of blood found on entering the stomach today. [id number]/[facility] #: [id number] [facility]IAL HOSPITALDontae
[2018-03-18] MEDS: Omeprazole CAP* 20 MG PO SCH (20:11)
[2018-03-18] MEDS: Fluconazole 100 MG TAB* TAB PO SCH (20:11)
[2018-03-18] MEDS: Nicotine Patch Removal NOTE FOLLOW UP SCH (20:20)
[2018-03-19 07:00] LABS: Hematocrit 23 % (35-47); Hemoglobin 7.8 g/dl (12.0-16.0)
[2018-03-19] MEDS: Tiotropium CAP.INH* CAP.INH/18 MCG (USE ORDER SET !) INH SCH (07:37)
[2018-03-19] MEDS: Mometasone/Formoter 200/5 MDI INH SCH (07:38)
[2018-03-19] MEDS: Atorvastatin* 10 MG TAB PO SCH (08:14)
[2018-03-19] MEDS: Magnesium Oxide TAB* 400 MG PO SCH (08:14)
[2018-03-19] MEDS: PARoxetine HCL TAB* 40 MG PO SCH (08:14)
[2018-03-19] MEDS: Omeprazole CAP* 20 MG PO SCH (08:14)
[2018-03-19] MEDS: Nicotine PATCH 21 MG/24 HR* PATCH TRANSDERM SCH (08:14)
--- NOTE | 2018-03-19 09:37 | PN ---
Subjective Date of Service: 03/19/18 Interval History: Patient seen and examined at bedside. Denies fever, chills, shortness of breath (not increased and at baseline), chest discomfort, N/V/D. PT has been able to be weaned back down to 2L O2 via NC. Pt is anxious for discharge to home later today. Family History: Unchanged from Admission Social History: Unchanged from Admission Past Medical History: Unchanged from Admission Objective Active Medications: Alprazolam (Xanax Tab*) 0.25 mg PO BID PRN Reason: ANXIETY Atorvastatin Calcium (Lipitor*) 5 mg PO DAILY [facility] Device (Nicotine Mouth Piece*) 1 each INH .USE WITH NICOTROL PRN Reason: CRAVING Docusate Sodium (Colace Cap*) 100 mg PO DAILY PRN Reason: CONSTIPATION Fluconazole (Diflucan 100 Mg Tab*) 100 mg PO Q24H DIANN Magnesium Oxide (Magox 400 Tab*) 400 mg PO DAILY [facility] Mometasone Furoate/Formoterol Fumar (Dulera 200/5 Mdi*) 2 puff INH BID [facility] Nicotine (Nicotine Inhaler*) 10 mg INH Q2H PRN Reason: CRAVING Nicotine (Nicotine Patch 21 Mg/24 Hr*) 1 patch TRANSDERM DAILY@0800 [facility] Omeprazole (Prilosec Cap*) 20 mg PO BID [facility] Ondansetron HCl (Zofran Inj*) 4 mg IV Q6H PRN Reason: NAUSEA Paroxetine HCl (Paxil Tab*) 40 mg PO DAILY [facility] Pharmacy Profile Note (Nicotine Patch Removal Note*) 1 note FOLLOW UP 2100 [facility] Polyethylene Glycol/Electrolytes (Miralax*) 17 gm PO DAILY PRN Reason: CONSTIPATION Tiotropium [place] (Spiriva Cap.Inh*) 1 cap INH DAILY [facility] Vital Signs - 8 hr 03/19/18 03/19/18 03/19/18 03:28 07:41 07:42 Temperature 97.5 F Pulse Rate 87 87 87 Respiratory 20 20 20 Rate Blood Pressure 127/77 (mmHg) O2 Sat by Pulse 100 100 100 Oximetry Oxygen Devices in Use Now: Nasal Cannula - 2L Appearance: NAD, sitting up in bed Ears/Nose/Mouth/Throat: Mucous Membranes Moist Respiratory: Symmetrical Chest Expansion and Respiratory Effort, - - Few scattered rhonchi bilateral Cardiovascular: NL Sounds; No Murmurs; No JVD, RRR Abdominal: NL Sounds; No Tenderness; No Distention Extremities: No Edema Skin: No Rash or Ulcers Neurological: Alert and Oriented x 3, NL Muscle Strength and Tone Lines/Tubes/Other Access: Clean, Dry and Intact Peripheral IV - site benign Nutrition: Taking PO's Result Diagrams: 03/19/18 05:51 03/17/18 06:50 Microbiology and Other Data: Microbiology 03/06/18 16:04 Gastric Antrum CLOtest - Final Microbiology 03/14/18 22:35 Urine Urine Culture - Preliminary Enterococcus Faecium Diagnostic Imagin. CT CHEST W/WO Exam Date: 03/13/18 1113 IMPRESSION: 1. Bibasilar pleural effusions larger on the right and the left that are slightly larger when compared to the most recent chest CT dated February 27, 2018. There is adjacent compressive atelectasis of the right lower lobe also progressed when compared to the previous CT of the chest. 2. Top normal mediastinal lymphadenopathy not changed since the previous CT the chest of uncertain clinical significance. 3. Additional chronic and degenerative changes described in body the report. 2. CHEST AP PORTABLE Exam Date: 03/14/18 0018 IMPRESSION: 1. COPD. 2. PULMONARY VASCULAR CONGESTION. Assess/Plan/Problems-Billing Assessment: Ms. Haddad is an 87 yo female PMH severe COPD on chronic noctural O2 transfer from [facility] after melena, acute blood loss anemia. Had been getting cftx->zosyn + overmedication with solumedrol 125mg q8H for several days at [place] for potential COPD exac/pna. EGD with numurous erosions/ulcers and 1 crater in duodenum with visible vessel s/p clip. Acute on Chronic Hypoxic Respiratory failure, persistent. s/p 12 u pRBC total. - Patient Problems (1) Acute and chronic respiratory failure Current Visit: Yes Status: Acute Code(s): J96.20 - ACUTE AND CHR RESP FAILURE, UNSP W HYPOXIA OR HYPERCAPNIA SNOMED Code(s): 48459129 Comment: - Now off vapotherm and back to baseline 2L via NC - Unclear if this was fluid overload vs. chronic Resp failure 2nd to Advanced COPD. - Has recieved lasix on and off (2) Melena Code(s): K92.1 - MELENA SNOMED Code(s): 8137037 Comment: - s/p 17 units PRBCs, with refractory low HgB - HH stable, will recheck again today and in the AM - S/P EGD x3 once on 03/06 with 1 clip placed, again on 03/15 with 2 clips placed , and again on 03/17 with 2 clips placed - Upper GI bleeding likely 2/2 steroid overdose. Prior EGD with erosions/ulcers , duodenal crater with vissible ulcer - Continue Prilosec (3) Anemia Code(s): D64.9 - ANEMIA, UNSPECIFIED SNOMED Code(s): 107970556 Comment: - HH stable - Acute blood loss anemia secondary to upper GI bleed - Has received a total 17 units of PRBCs (4) Esophageal candidiasis Code(s): B37.81 - CANDIDAL ESOPHAGITIS SNOMED Code(s): 95540925 Comment: - Seen on EGD - Continue diflucan (5) COPD (chronic obstructive pulmonary disease) Code(s): J44.9 - CHRONIC OBSTRUCTIVE PULMONARY DISEASE, UNSPECIFIED SNOMED Code(s): 85871283 Comment: - Improving - Completed course of ceftriaxone - Continue Nebs PRN, dulera and spiriva - Consider pulmonology consult, once pt is stable from GI bleed and/or if she requires vapotherm again. (6) Leukocytosis Code(s): D72.829 - ELEVATED WHITE BLOOD CELL COUNT, UNSPECIFIED SNOMED Code(s) : 058666678 Comment: - Resolved - Appreciate Oncology/Heme consult, Dr. Elias feels this is still suppression from steroids and not likely heme-onc issue, CT chest was reviewed by Dr. Elias, please see her consultation - UA with Enterococcus Faecium 10-25 K, will hold on further ABX at this time (7) Smoker Code(s): F17.200 - NICOTINE DEPENDENCE, UNSPECIFIED, UNCOMPLICATED SNOMED Code (s): 00933393 Comment: - Should quit indefinitely - Continue nicotine patch (8) HTN (hypertension) Code(s): I10 - ESSENTIAL (PRIMARY) HYPERTENSION SNOMED Code(s): 28414262 Comment: - SBP 90-120's - Continue to monitor (9) HLD (hyperlipidemia) Code(s): E78.5 - HYPERLIPIDEMIA, UNSPECIFIED SNOMED Code(s): 09214830 Comment: - Discontinue statin, Pt is going on Hospice (10) Anxiety and depression Code(s): F41.9 - ANXIETY DISORDER, UNSPECIFIED; F32.9 - MAJOR DEPRESSIVE DISORDER, SINGLE EPISODE, UNSPECIFIED SNOMED Code(s): 800140532 Comment: - Continue xanax PRN (11) DVT prophylaxis Code(s): MUJ5020 - SNOMED Code(s): 852162781 Comment: - SCDs in setting of acute bleeding (12) DNR (do not resuscitate) Status and Disposition: Inpatient, guarded. Stable for discharge to home today for sign on to Hospice.
--- NOTE | 2018-03-19 09:39 | CONSULT ---
Palliative / Hospice Consult Ordering Provider: Virginie Machuca - Subjective Code Status: DNR Advance Directives Location: In Chart MOLST Part A Completed: Yes - DNR MOLST Part E Completed:: Yes - DNI - History or Present Illness History or Present Illness: This 87 year old woman was admitted to [facility] 02/21/18 with advanced COPD, pneumonia and acute on chronic respiratory failure. After a long hospitalization at [place] during which time she was administered large doses of IV steroids, 125 mg Solumedrol Q8h, without gastric protection, she was transferred here with hypotnsion and diaphoresis due to UGI bleeding and has required 17 units of PRBCs to maintain adequate perfusion. Now she has decided she does not want any further transfusions, and she wants to return home. She underwent endoscopy yesterday and was found to have a few sites of persistent bleeding in the duodenum, and some pooling of blood, and the sites were clipped by Dr. Pickard. She has been on IV PPI therapy with Protonix since admission. At baseline, the patient has severe COPD and uses O2 at night and prn during the day. She is a continuing cigarette smoker. Lab Values: Abnormal Lab Results 03/18/18 03/19/18 13:48 05:51 Hgb 7.6 L 7.8 L Hct 22 L 23 L Laboratory Last Values WBC 8.8 10^3/ul (3.5-10.8) 03/17/18 06:50 RBC 1.98 10^6/ul (4.0-5.4) L 03/17/18 06:50 Hgb 7.8 g/dl (12.0-16.0) L 03/19/18 05:51 Hct 23 % (35-47) L 03/19/18 05:51 MCV 84 fL (80-97) 03/17/18 06:50 MCH 29 pg (27-31) 03/17/18 06:50 MCHC 35 g/dl (31-36) 03/17/18 06:50 RDW 16 % (10.5-15) H 03/17/18 06:50 Plt Count 207 10^3/ul (150-450) 03/17/18 06:50 MPV 8.6 um3 (7.4-10.4) 03/17/18 06:50 Neut % (Auto) 79.4 % (38-83) 03/17/18 06:50 Lymph % (Auto) 7.5 % (25-47) L 03/17/18 06:50 [place] % (Auto) 8.6 % (0-7) H 03/17/18 06:50 Eos % (Auto) 4.1 % (0-6) 03/17/18 06:50 Baso % (Auto) 0.4 % (0-2) 03/17/18 06:50 Absolute Neuts (auto) 7.0 10^3/ul (1.5-7.7) 03/17/18 06:50 Absolute Lymphs (auto) 0.7 10^3/ul (1.0-4.8) L 03/17/18 06:50 Absolute Monos (auto) 0.8 10^3/ul (0-0.8) 03/17/18 06:50 Absolute Eos (auto) 0.4 10^3/ul (0-0.6) 03/17/18 06:50 Absolute Basos (auto) 0 10^3/ul (0-0.2) 03/17/18 06:50 Absolute Nucleated RBC 0 10^3/ul 03/17/18 06:50 Nucleated RBC % 0 03/17/18 06:50 Hem Pathologist Commnt 03/05/18 17:10 INR (Anticoag Therapy) 1.02 (0.77-1.02) 03/17/18 21:30 Sodium 138 mmol/L (139-145) L 03/17/18 06:50 Potassium 3.7 mmol/L (3.5-5.0) 03/17/18 06:50 Chloride 109 mmol/L (101-111) 03/17/18 06:50 Carbon Dioxide 27 mmol/L (22-32) 03/17/18 06:50 Anion Gap 2 mmol/L (2-11) 03/17/18 06:50 BUN 40 mg/dL (6-24) H 03/17/18 06:50 Creatinine 0.51 mg/dL (0.51-0.95) 03/17/18 06:50 Est GFR ( Amer) 147.0 (>60) 03/17/18 06:50 Est GFR (Non-Af Amer) 114.3 (>60) 03/17/18 06:50 BUN/Creatinine Ratio 78.4 (8-20) H 03/17/18 06:50 Glucose 99 mg/dL (70-100) 03/17/18 06:50 Calcium 7.1 mg/dL (8.6-10.3) L 03/17/18 06:50 Magnesium 2.1 mg/dL (1.9-2.7) 03/10/18 05:12 Total Bilirubin 0.30 mg/dL (0.2-1.0) 03/17/18 06:50 Direct Bilirubin 0.10 mg/dL (0.03-0.18) 03/17/18 06:50 Indirect Bilirubin 0.2 mg/dL (0.3-1.0) L 03/17/18 06:50 AST 15 U/L (13-39) 03/17/18 06:50 ALT 18 U/L (7-52) 03/17/18 06:50 Alkaline Phosphatase 44 U/L (34-104) 03/17/18 06:50 Troponin I 0.03 ng/mL (<0.04) 03/14/18 06:55 B-Natriuretic Peptide 65 pg/mL (-100) 03/14/18 03:06 Total Protein 3.7 g/dL (6.4-8.9) L 03/17/18 06:50 Albumin 1.6 g/dL (3.2-5.2) L 03/17/18 06:50 Globulin 2.1 g/dL (2-4) 03/17/18 06:50 Albumin/Globulin Ratio 0.8 (1-3) L 03/17/18 06:50 Prealbumin 12 mg/dL (18-38) L 03/12/18 15:19 Influenza A (Rapid) Negative (Negative) 03/14/18 17:49 Influenza B (Rapid) Negative (Negative) 03/14/18 17:49 Blood Type O Positive 03/17/18 06:48 Antibody Screen Negative 03/17/18 06:48 Crossmatch See Detail 03/17/18 06:48 - Objective Active Medications: Alprazolam (Xanax Tab*) 0.25 mg PO BID PRN PRN Reason: ANXIETY Last Admin: 03/16/18 18:52 Dose: 0.25 mg Atorvastatin Calcium (Lipitor*) 5 mg PO DAILY COUNTS INCLUDE 234 BEDS AT THE [facility] Last Admin: 03/19/18 08:14 Dose: 5 mg Device (Nicotine Mouth Piece*) 1 each INH .USE WITH NICOTROL PRN PRN Reason: CRAVING Docusate Sodium (Colace Cap*) 100 mg PO DAILY PRN PRN Reason: CONSTIPATION Last Admin: 03/11/18 22:01 Dose: 100 mg Fluconazole (Diflucan 100 Mg Tab*) 100 mg PO Q24H COUNTS INCLUDE 234 BEDS AT THE [facility] Last Admin: 03/18/18 20:11 Dose: 100 mg Magnesium Oxide (Magox 400 Tab*) 400 mg PO DAILY COUNTS INCLUDE 234 BEDS AT THE [facility] Last Admin: 03/19/18 08:14 Dose: 400 mg Mometasone Furoate/Formoterol Fumar (Dulera 200/5 Mdi*) 2 puff INH BID COUNTS INCLUDE 234 BEDS AT THE [facility] Last Admin: 03/19/18 07:38 Dose: 2 puff Nicotine (Nicotine Inhaler*) 10 mg INH Q2H PRN PRN Reason: CRAVING Nicotine (Nicotine Patch 21 Mg/24 Hr*) 1 patch TRANSDERM DAILY@0800 COUNTS INCLUDE 234 BEDS AT THE [facility] Last Admin: 03/19/18 08:14 Dose: Not Given Omeprazole (Prilosec Cap*) 20 mg PO BID COUNTS INCLUDE 234 BEDS AT THE [facility] Last Admin: 03/19/18 08:14 Dose: 20 mg Ondansetron HCl (Zofran Inj*) 4 mg IV Q6H PRN PRN Reason: NAUSEA Last Admin: 03/12/18 08:26 Dose: 4 mg Paroxetine HCl (Paxil Tab*) 40 mg PO DAILY COUNTS INCLUDE 234 BEDS AT THE [facility] Last Admin: 03/19/18 08:14 Dose: 40 mg Pharmacy Profile Note (Nicotine Patch Removal Note*) 1 note FOLLOW UP 2100 COUNTS INCLUDE 234 BEDS AT THE [facility] Last Admin: 03/18/18 20:20 Dose: 1 note Polyethylene Glycol/Electrolytes (Miralax*) 17 gm PO DAILY PRN PRN Reason: CONSTIPATION Last Admin: 03/11/18 22:01 Dose: 17 gm Tiotropium [place] (Spiriva Cap.Inh*) 1 cap INH DAILY COUNTS INCLUDE 234 BEDS AT THE [facility] Last Admin: 03/19/18 07:37 Dose: 1 cap Vital Signs: Vital Signs: Temp Pulse Resp BP Pulse Ox 97.5 F 87 20 127/77 100 03/19/18 03:28 03/19/18 07:42 03/19/18 07:42 03/19/18 03:28 03/19/18 07:42 Patient Weight: Weight 118 lb 14.4 oz Intake and Output: Intake & Output 03/17/18 03/18/18 03/19/18 03/20/18 06:59 06:59 06:59 06:59 Intake Total 2178 912.2 1288 Output Total 1175 900 Balance 1003 12.2 1288 Weight 117 lb 11.629 oz 118 lb 14.4 oz Intake: IV Fluids 293 38 NS 293 38 IVPB 532 71 NS 532 protonix 71 Medicated IV 543 172.2 387 GEN - Pantoprazole/ 543 172.2 387 Protonix Oral 810 150 830 Packed Cells 552 Output: Urine 1175 900 Other: Estimated Void Medium Large Medium # Bowel Movements 0 Estimated Stool Amount Medium Medium # Voids 1 1 ADLs: Meal Record Start: 03/04/18 10: 18 Freq: DAILY@0900,1400,1800 Status: Complete Protocol: Created 03/04/18 10:18 System (Rec: 03/04/18 10:18 System MED-C12) Document 03/04/18 14:00 [id number] (Rec: 03/04/18 15:12 [id number] MED-C11) Document 03/05/18 09:00 SSU8680 (Rec: 03/05/18 09:47 TEW7461 MED-C11) Document 03/05/18 14:00 UHH3932 (Rec: 03/05/18 14:31 CQF6659 MED-C13) Document 03/05/18 18:00 GAK0075 (Rec: 03/05/18 21:16 GDQ6565 MED-C14) Document 03/06/18 09:00 CPP8546 (Rec: 03/06/18 10:03 AHJ7420 MED-C09) Document 03/06/18 13:09 RWA7818 (Rec: 03/06/18 13:09 QYW8513 MED-C09) Document 03/06/18 18:00 TJR1779 (Rec: 03/06/18 21:50 VIW1626 TELE-C01) Document 03/07/18 09:00 DJC3757 (Rec: 03/07/18 14:17 DJH5248 TELE-C01) Document 03/07/18 14:00 FVU9400 (Rec: 03/07/18 14:17 ODU9968 TELE-C01) Document 03/08/18 09:00 PRW7743 (Rec: 03/08/18 15:20 GSY3610 TELE-C01) Document 03/08/18 14:00 TTI2372 (Rec: 03/08/18 15:21 PRM4085 TELE-C01) Document 03/08/18 18:00 ITV6994 (Rec: 03/08/18 20:27 FXQ8501 TELE-C01) Document 03/09/18 09:00 KOG3077 (Rec: 03/09/18 11:56 ZES1727 TELE-C11) Document 03/09/18 14:00 UZF0480 (Rec: 03/09/18 14:27 CHL8281 TELE-C11) Document 03/09/18 18:00 MEW5526 (Rec: 03/09/18 18:48 SWM5905 TELE-C05) Document 03/10/18 09:00 RTD5095 (Rec: 03/10/18 14:49 USY7710 TELE-C10) Document 03/10/18 14:00 PNI3585 (Rec: 03/10/18 14:50 NTR0054 TELE-C10) Document 03/10/18 18:00 EZP8597 (Rec: 03/10/18 20:53 UQA6465 TELE-C07) Document 03/11/18 09:00 UGI3351 (Rec: 03/11/18 10:29 QZW8286 TELE-C10) Document 03/11/18 14:00 PSB6345 (Rec: 03/11/18 14:29 NOE5972 TELE-C10) Document 03/11/18 18:00 HPS2389 (Rec: 03/11/18 22:12 ZBV8769 TELE-C05) Document 03/12/18 09:14 OGX0605 (Rec: 03/12/18 09:14 HEI2885 TELE-C11) Document 03/12/18 14:06 TKO8137 (Rec: 03/12/18 14:06 SYM3754 TELE-C11) Document 03/12/18 18:00 IXR1430 (Rec: 03/12/18 22:14 CEM4812 TELE-C03) Document 03/13/18 09:00 HJW3876 (Rec: 03/13/18 10:39 HYI1058 TELE-C01) Document 03/13/18 14:00 PRR3221 (Rec: 03/13/18 14:52 OZG3842 TELE-C05) Document 03/13/18 18:00 LXD4528 (Rec: 03/13/18 19:31 NAT7223 TELE-M07) ADLs: Meal Record Start: 03/14/18 04: 24 Freq: 09,13,18 Status: Complete Protocol: Created 03/14/18 04:24 MAQ6852 (Rec: 03/14/18 04:24 ASU5291 ICU-C06) Document 03/14/18 09:00 XSS9644 (Rec: 03/14/18 14:09 FUI4025 ICU-C07) Document 03/14/18 13:00 MGP3031 (Rec: 03/14/18 14:35 RXU4831 ICU-C07) Document 03/14/18 18:24 MOM8269 (Rec: 03/14/18 18:24 YXJ6419 ICU-C07) Document 03/15/18 09:00 PVD7547 (Rec: 03/15/18 11:04 EXG4815 ICU-C08) Document 03/15/18 13:00 ZIX1855 (Rec: 03/15/18 13:12 TDW2883 ICU-C08) Document 03/15/18 18:00 WLH9487 (Rec: 03/15/18 18:37 LBO5888 ICU-C06) ADLs: Meal Record Start: 03/16/18 07: 52 Freq: DAILY@0900,1400,1800 Status: Active Protocol: Created 03/16/18 07:52 DPL7013 (Rec: 03/16/18 07:52 XEJ4973 ICU-C12) Document 03/16/18 09:00 XHQ2407 (Rec: 03/16/18 09:44 FSJ9030 ICU-C18) Document 03/16/18 14:00 QTO7499 (Rec: 03/16/18 14:30 FMV8382 ICU-M02) Document 03/16/18 18:31 FKJ6198 (Rec: 03/16/18 18:31 QIX3070 ICU-C07) Document 03/17/18 09:00 HNE6944 (Rec: 03/17/18 10:42 ZSY8988 ICU-C07) Document 03/17/18 14:00 XBE3284 (Rec: 03/17/18 17:36 BQL6691 ICU-C07) Document 03/17/18 18:00 MNG7692 (Rec: 03/17/18 22:22 SWN0422 ICU-C07) Document 03/18/18 09:00 GWC9899 (Rec: 03/18/18 11:56 FVL1622 ICU-C06) Document 03/18/18 14:12 PMG7108 (Rec: 03/18/18 14:18 VPX3237 ICU-C06) Document 03/18/18 18:00 SLW2204 (Rec: 03/18/18 18:34 MLM4936 MED-C11) Intake and Output Start: 03/04/18 10: 18 Freq: DAILY@0600,1400,2200 Status: Complete Protocol: Created 03/04/18 10:18 System (Rec: 03/04/18 10:18 System MED-C12) Document 03/04/18 14:00 RVN8903 (Rec: 03/04/18 15:12 DHY4705 MED-C11) Document 03/04/18 21:39 QRN3657 (Rec: 03/04/18 21:40 WBS7273 MED-C09) Document 03/05/18 06:00 IXY9856 (Rec: 03/05/18 06:37 ODC4014 MED-C14) Document 03/05/18 14:00 YNE1774 (Rec: 03/05/18 14:31 UEP6461 MED-C13) Document 03/05/18 22:00 JVS9766 (Rec: 03/05/18 22:45 CXA6087 MED-C14) Document 03/06/18 06:00 JLU5127 (Rec: 03/06/18 07:18 PFO7225 MED-C09) Document 03/06/18 13:10 RMT8103 (Rec: 03/06/18 13:10 LAW7966 MED-C09) Document 03/06/18 21:51 TXY3059 (Rec: 03/06/18 21:53 PBP5585 TELE-C01) Document 03/07/18 05:56 PFH3755 (Rec: 03/07/18 05:58 IQB4150 TELE-C32) Document 03/07/18 13:35 IAH7697 (Rec: 03/07/18 14:10 OIE4302 TELE-C03) Document 03/07/18 14:58 MBN5493 (Rec: 03/07/18 14:58 YBO8011 MED-M21) Document 03/07/18 22:00 LFK6536 (Rec: 03/07/18 23:12 SND2193 TELE-C10) Document 03/08/18 06:00 QQC5569 (Rec: 03/08/18 06:39 YKP5280 TELE-C32) Document 03/08/18 14:00 XFM0326 (Rec: 03/08/18 15:21 IOL7078 TELE-C01) Document 03/08/18 22:00 ISE3059 (Rec: 03/08/18 23:17 DFY6478 TELE-C01) Document 03/09/18 06:00 YNB8980 (Rec: 03/09/18 06:27 NII4322 TELE-C34) Document 03/09/18 13:51 ZER5331 (Rec: 03/09/18 13:51 WQL2345 TELE-C08) Document 03/09/18 14:00 WZZ5990 (Rec: 03/09/18 14:27 BDN6572 TELE-C11) Document 03/09/18 22:00 HTC0148 (Rec: 03/09/18 22:49 UTX0455 TELE-C05) Document 03/10/18 05:31 HRI1527 (Rec: 03/10/18 05:31 BOQ9189 TELE-C32) Document 03/10/18 14:00 ELP6562 (Rec: 03/10/18 14:50 TNK3482 TELE-C10) Document 03/10/18 21:57 AUI0323 (Rec: 03/10/18 21:58 OVW6908 TELE-C07) Document 03/11/18 06:00 HGY4229 (Rec: 03/11/18 06:46 OGM3192 TELE-C32) Document 03/11/18 13:52 KOX3083 (Rec: 03/11/18 13:54 TPT1445 TELE-M11) Document 03/11/18 16:02 HGK1643 (Rec: 03/11/18 16:03 CGF0420 TELE-C13) Document 03/11/18 16:36 ABA5059 (Rec: 03/12/18 19:36 QKR5774 MED-C14) Document 03/11/18 22:00 JFH6193 (Rec: 03/11/18 22:13 MAL2082 TELE-C05) Document 03/12/18 01:28 HVI1731 (Rec: 03/12/18 01:28 SFG3371 TELE-C10) Document 03/12/18 06:00 IYS6455 (Rec: 03/12/18 06:12 VDB6664 TELE-C34) Document 03/12/18 09:14 UVB8067 (Rec: 03/12/18 09:15 DOC7124 TELE-C11) Document 03/12/18 13:04 DDP2442 (Rec: 03/12/18 13:04 NVP5584 TELE-C11) Document 03/12/18 19:15 ESA8366 (Rec: 03/12/18 19:45 GCX0149 TELE-M14) Document 03/12/18 22:00 EYW2157 (Rec: 03/12/18 22:16 DHR3352 TELE-C03) Document 03/13/18 05:33 PJH2679 (Rec: 03/13/18 05:33 WMR5663 TELE-C35) Document 03/13/18 14:00 YYA6733 (Rec: 03/13/18 14:52 FBJ2193 TELE-C05) Document 03/13/18 21:57 SWG2552 (Rec: 03/13/18 21:58 LWO1806 TELE-C13) Document 03/14/18 01:31 NUU4262 (Rec: 03/14/18 01:31 FBK6910 TELE-C10) Intake and Output Start: 03/14/18 04: 24 Freq: 06,14,22 Status: Complete Protocol: Created 03/14/18 04:24 FLS4556 (Rec: 03/14/18 04:24 WZX3501 ICU-C06) Document 03/14/18 06:00 EAS1029 (Rec: 03/14/18 06:12 PYE1161 ICU-M02) Document 03/14/18 09:00 WRX5968 (Rec: 03/14/18 15:11 ZNW4032 ICU-C07) Document 03/14/18 14:00 EEX0920 (Rec: 03/14/18 15:17 FYC5099 ICU-C07) Document 03/14/18 14:30 EDQ3799 (Rec: 03/14/18 15:11 AZH0388 ICU-C07) Document 03/14/18 15:17 EPY7127 (Rec: 03/14/18 15:17 JNH3779 ICU-C07) Document 03/14/18 16:30 ZTO8678 (Rec: 03/14/18 16:30 QAW0938 ICU-M02) Document 03/14/18 22:00 XQR8237 (Rec: 03/14/18 22:18 NPM4543 ICU-C07) Document 03/14/18 22:41 MBO9167 (Rec: 03/14/18 22:41 JEC2317 ICU-C07) Document 03/15/18 07:26 BOE6124 (Rec: 03/15/18 07:26 QYI1343 ICU-C08) Document 03/15/18 08:51 PGX9822 (Rec: 03/15/18 08:52 VTV5460 ICU-C18) Document 03/15/18 10:11 CIW9290 (Rec: 03/15/18 10:11 SMP9380 ICU-C18) Document 03/15/18 14:00 QSM2480 (Rec: 03/15/18 14:38 GYL7852 ICU-C08) Document 03/15/18 23:41 RYD9867 (Rec: 03/15/18 23:41 ZKV1258 ICU-C14) Document 03/16/18 06:00 NWQ5351 (Rec: 03/16/18 06:34 SEU5084 ICU-C07) Intake and Output Start: 03/16/18 07: 52 Freq: DAILY@0600,1400,2200 Status: Active Protocol: Created 03/16/18 07:52 FQB7562 (Rec: 03/16/18 07:52 XSY8580 ICU-C12) Document 03/16/18 07:53 CCB2123 (Rec: 03/16/18 07:53 XIG5987 ICU-C18) Document 03/16/18 09:44 JZP8094 (Rec: 03/16/18 09:44 LXS6859 ICU-C18) Document 03/16/18 12:45 NIY7844 (Rec: 03/16/18 12:45 GRR6096 ICU-C18) Document 03/16/18 14:00 SOH0843 (Rec: 03/16/18 14:31 KTK7207 ICU-M02) Document 03/16/18 22:00 VNK6561 (Rec: 03/16/18 22:34 HFL5486 ICU-C07) Document 03/16/18 23:40 HAS1109 (Rec: 03/16/18 23:40 AZG0936 ICU-C07) Document 03/17/18 08:49 BAR1564 (Rec: 03/17/18 08:49 NRP1447 ICU-C14) Document 03/17/18 12:00 FJH3228 (Rec: 03/17/18 17:31 IFT1007 ICU-C07) Document 03/17/18 17:30 ZVU3310 (Rec: 03/17/18 17:31 ICH8415 ICU-C07) Document 03/17/18 22:00 UAL8197 (Rec: 03/17/18 22:22 RFP5281 ICU-C07) Document 03/18/18 14:12 VHO0408 (Rec: 03/18/18 14:18 VGP4790 ICU-C06) Document 03/18/18 21:51 NHT0437 (Rec: 03/18/18 21:52 FVE9068 MED-C09) Document 03/19/18 05:47 YHF4359 (Rec: 03/19/18 05:47 QPY4340 MED-C11) Eyes: No Scleral Icterus, PERRLA Ears/Nose/Mouth/Throat: Mucous Membranes Moist Neck: NL Appearance and Movements; NL JVP Cardiovascular: NL Sounds; No Murmurs; No JVD, RRR Respiratory: Symmetrical Chest Expansion and Respiratory Effort Abdominal: NL Sounds; No Tenderness; No Distention Extremities: No Edema Neurological: Alert and Oriented x 3, NL Muscle Strength and Tone - Assessment Assessment: This patient has had a major UGI bleed that has required a lot of transfusions, and this may continue. If it does, she will certainly qualify for hospice services ont hat basis, with a secondary diagnosis of COPD with respiratory failure. She will need continuing O2 at home. She should remain on PPI therapy. She has not walked in over 2 weeks and [facility] just delivered a walker here for her, but she should have a PT evaluation to be sure she is able to ambulate safely. She lives in her own home with her son, grand daughter and great grandchildren, all of whom she says will help to care for her. She will be evaluated after discharge by [facility] in [facility]. - Plan Consult Plan (MU): Hospice - Time On Unit Date of Evaluation: 03/19/18 Hospice Consult Time in: 09:00 Hospice Consult Time Out: 09:40 Hospice Consult Time Total: 40
[2018-03-19 10:01] VITALS: BP 120/63
--- NOTE | 2018-03-20 22:34 | DS ---
CC: [facility]; Dr. Giovana Humphreys* DISCHARGE SUMMARY: DATE OF ADMISSION: 03/04/18 DATE OF DISCHARGE: 03/19/18 ATTENDING PHYSICIAN: Chani Bowles MD* (dictated by Bonnie Mcintyre NP). PRIMARY CARE PROVIDER: Dr. Giovana Humphreys. PRIMARY DIAGNOSES: 1. Upper gastrointestinal bleed secondary to erosions and ulcers. 2. Esophageal candidiasis. 3. Acute blood loss anemia. 4. Acute on chronic respiratory failure, resolved. 5. Leukocytosis, resolved. SECONDARY DIAGNOSES: 1. Chronic obstructive pulmonary disease. 2. Tobacco abuse. 3. Hypertension. 4. Hyperlipidemia. 5. History of anxiety and depression. CONSULTATIONS WHILE IN THE HOSPITAL: 1. Dr. Grisel Gutierrez with Palliative Care. 2. Dr. Warren Kaminski, Dr. Opal Hess, and Dr. Danyel Pickard with Gastroenterology. 3. Dr. Demetria Elias with Hematology. PROCEDURES WHILE IN THE HOSPITAL: 1. EGD on 03/06/[address] Opal Hess. This EGD revealed 6 cm hiatal hernia , a few patchy white exudates in the distal esophagus status post biopsies, several small clean-based gastric ulcers and erosions in the antrum with CLOtest to rule out H. pylori. Several large clean-based and cratered ulcers ranging from 6 mm to 12 mm in the bulb and first portion of the duodenum with 1 visible vessel and probable underlying polyp status post 1 Endoclip placement with hemostasis. Gastroduodenitis. 2. EGD on 03/15/[address] Xi Mclaughlin. This EGD revealed evidence for significant Chika esophagitis. She had a normal stomach with healing of previously noted ulcers and erosions. The prior clip placed was noted with no bleeding from that site. There were 2 small erosions just beyond the previously placed clip, which were minimally oozing. Two Endoclips were placed at these erosions just beyond the duodenal bulb. 3. EGD on 03/18/18. This EGD revealed an initial small pool of blood layering at the greater curvature with a small clot, this was aspirated with no underlying lesion seen. There were a few suction artifacts created in the course of doing the EGD. There was no blood present upon re-examination later during the EGD. There was a linear healing ulceration extending from 1 to 4 o' clock orientation with blood from it, they were old, black and minimal. A few centimeters down from this, there was a small red spot which appeared to be a couple of healing erosions. There was no active bleeding noted. STUDIES WHILE IN THE HOSPITAL: 1. Chest x-ray on 03/06/18. Radiologist's impression: Small right basilar infiltrate and trace pleural effusion, unchanged. 2. Transthoracic echocardiogram on 03/07/18. Admeasurer's conclusion: Moderate concentric left ventricular hypertrophy is observed. The left ventricle appears hyperdynamic. The estimated ejection fraction is greater than 65%. No significant valvular disease. There is trace to mild aortic regurgitation, there is borderline aortic stenosis present, trace to mild mitral regurgitation, trace to mild tricuspid regurgitation. There is evidence of mild pulmonary hypertension. There is a trace pulmonic regurgitation. No reports of prior studies are offered for comparison. 3. Chest CT on 03/13/18. Radiologist's impression: Bibasilar pleural effusions, large on the right and the left that are significantly larger when compared to the most recent chest CT dated 03/19/18. There is adjacent compressive atelectasis at the right lung lobe, also progressed when compared to the previous CT of the chest. Top normal mediastinal lymphadenopathy not changed since previous CT of the chest of uncertain clinical significance. Additional chronic and degenerative changes described in the body of the report. 4. Chest x-ray on 03/14/18. Radiologist's impression: COPD. Pulmonary vascular congestion. 5. Nuclear medicine scan on 03/17/18. Radiologist's impression: No definitive obvious source of bleeding from the GI study. Physiologic activity is normal. DISCHARGE MEDICATIONS: New home medications: 1. Fluconazole 100 mg oral daily. 2. Dulera 200/5 two puffs inhalation twice daily. 3. Omeprazole 20 mg oral twice daily. 4. Spiriva 1 capsule inhalation daily. Continued home medications: 1. Paxil 40 mg oral daily. 2. Combivent Respimat 1 inhalation every 4 hours as needed for shortness of breath or wheeze. 3. Simvastatin 10 mg oral daily. 4. DuoNeb 1 puff inhalation 4 times daily as needed for shortness of breath or wheeze. Discontinued home medications: 1. Clonidine. 2. Hydroxyzine. 3. Lisinopril. 4. Spironolactone. 5. Metoprolol succinate. HISTORY OF PRESENT ILLNESS/HOSPITAL COURSE: Ms. Haddad is an 87-year-old female with past medical history significant for hypertension, advanced COPD with nocturnal oxygen use, dyslipidemia, depression, and anxiety who was initially admitted to [facility] on 02/21/18 with a diagnosis of pneumonia, COPD exacerbation, and acute on chronic hypoxic respiratory failure. The patient was being managed with IV antibiotics and IV Solu-Medrol for her COPD exacerbation. She had been weaned down to 2 L of oxygen. Two days prior to the patient's transfer to [facility], the patient reportedly had an episode of hypotension and diaphoresis. The patient was given IV fluids with improvement in her blood pressure. Her blood pressure medications were discontinued. Her hemoglobin was noted to be 9.7 with a hematocrit of 30.6 that decreased on the morning of 03/03/18 to 8.2 and 26 respectively. Subsequently dropped again when rechecked in the evening to 7.5 and 24.3; the morning of 03/04/18 she was down to 6.1 and 19.8. The patient reportedly had black tarry stools. Due to concern for GI bleed, [facility] was contacted and there was request for a transfer. Upon arrival to [facility], the patient was feeling okay but stated she felt tired. The patient also stated that she did not want to be in the hospital any longer. The patient states that every time she gets antibiotics, she develops dark stools that are somewhat sticky in nature and she assumed that was what was happening, when her stools were changing. She denied any increased shortness of breath or significant cough. It was suspected that the patient had an upper GI bleed due to receiving high-dose steroids while at [place]. She was not receiving any PPI. She received IV Protonix followed by the initiation of a Protonix drip and GI was consulted. During the patient's stay, she continued to have upper GI bleeding. She underwent an endoscopy initially on 03/06/18, showing gastric erosions. She had [address] Hess. The patient again developed acute on chronic respiratory failure, was moved to the ICU, placed on Vapotherm. She was able to be moved off Vapotherm, returning to her baseline oxygen except she was needing it around the clock instead of just nocturnal. It was unclear if it was fluid overload versus her chronic respiratory failure. She was receiving IV Lasix intermittently. The patient continued to have melena. In total, the patient received 17 units of packed red blood cells with refractory low hemoglobins. Her hemoglobin and hematocrit became stable around 7 after receiving those. She underwent another endoscopy procedure on 03/15/18 that resulted in 2 clips being placed and again on with 2 more clips being seen. During her stay, she was noted to have esophageal candidiasis and was started on Diflucan. Again, it was felt that the patient was likely having a GI bleed secondary to steroid overdose. The erosions were improving with each EGD. The patient's anemia was considered acute blood loss anemia secondary to her GI bleed. Her COPD exacerbation resolved. She was completed on a course of ceftriaxone. She was continued on Dulera and Spiriva. She had leukocytosis that resolved during her stay. She was seen in consultation by Dr. Elias as it was not resolving after coming off steroid. It was felt there is still suppression secondary to steroids and not likely a Heme/Onc issue. The patient's leukocytosis did eventually resolve. The patient remained normotensive off her antihypertensive medications. Her statin was discontinued as she was planning to go home on palliative care. During the patient's stay, she continued to wish to go home and not want to receive any more medical treatment. It was discussed with her that she could potentially continue to bleed. The patient was okay with this. The patient was seen in consultation by Palliative Care, it was felt that she could go home to sign on with hospice. Ms. Haddad is stable for discharge. Vital signs are as follows: Temperature 98.0 , heart rate 96, respiratory rate 18, O2 sat 100% on 2 L via nasal cannula, blood pressure 120/63. DISCHARGE PLAN: Ms. Haddad will be discharged to home. Activity as tolerated. She is on a regular comfort diet. She has been encouraged to eat mechanical soft just to try not to irritate anything in her stomach or esophagus to cause it to bleed again. For the patient's COPD, she has been started on Spiriva and Dulera, continued on her home p.r.n. treatments. For her esophageal candidiasis , she has been continued on Diflucan for 10 more days to complete a 14-day course. For her GI bleed, she has been continued on omeprazole twice daily. Additionally, the patient has been prescribed morphine concentrate and Ativan to have on hand at home for if needed while she is on hospice. I-STOP was checked with reference number [id number]. Additionally, her previous medications of spironolactone, metoprolol, lisinopril, hydroxyzine, and clonidine have been discontinued as she has been normotensive during her stay. [facility] will sign the patient on later today. The family have been encouraged to call Dr. Humphreys or [facility] for any concerns or worsening symptoms. This is a summarized report of a complex medical history and hospital stay. For further details, please see the entire medical record. TIME SPENT: Time for this discharge was approximately 50 minutes, greater than half of that was spent with the patient and family discussing discharge plans and instructions. CONDITION ON DISCHARGE: Improved. BONNIE MCINTYRE, MOHAMUD [id number]/[facility] #: [id number] [place]
== END 2018-03-19 11:25 | disposition hospice, home (50) | DRG 377 ==
LOC: MED 10:06 → MEDTELE 03-06 18:49 → ICU 03-14 02:45 → MED 03-18 12:35
PROVIDERS: ADMIT Hospitalist; ATTEND Hospitalist
PROC: 30233N1 Transfusion of Nonautologous Red Blood Cells into Peripheral Vein, Percutaneous Approach (ICD-10-PCS; principal; 2018-03-04)
PROC: 0DB38ZX Excision of Lower Esophagus, Via Natural or Artificial Opening Endoscopic, Diagnostic (ICD-10-PCS; 2018-03-06)
PROC: 0W3P8ZZ Control Bleeding in Gastrointestinal Tract, Via Natural or Artificial Opening Endoscopic (ICD-10-PCS; 2018-03-06)
PROC: 0W3P8ZZ Control Bleeding in Gastrointestinal Tract, Via Natural or Artificial Opening Endoscopic (ICD-10-PCS; 2018-03-15)
PROC: 0W3P8ZZ Control Bleeding in Gastrointestinal Tract, Via Natural or Artificial Opening Endoscopic (ICD-10-PCS; 2018-03-17)
DX: K26.4 Chronic or unspecified duodenal ulcer with hemorrhage (principal); J96.21 Acute and chronic respiratory failure with hypoxia; J44.1 Chronic obstructive pulmonary disease with (acute) exacerbation; D62 Acute posthemorrhagic anemia; B37.81 Candidal esophagitis; J90 Pleural effusion, not elsewhere classified; J98.11 Atelectasis; Z66 Do not resuscitate; K26.0 Acute duodenal ulcer with hemorrhage; I95.9 Hypotension, unspecified; I10 Essential (primary) hypertension; E78.5 Hyperlipidemia, unspecified; F32.9 Major depressive disorder, single episode, unspecified; F41.9 Anxiety disorder, unspecified; F17.210 Nicotine dependence, cigarettes, uncomplicated; K44.9 Diaphragmatic hernia without obstruction or gangrene; K22.2 Esophageal obstruction; K29.90 Gastroduodenitis, unspecified, without bleeding; D72.829 Elevated white blood cell count, unspecified; I08.3 Combined rheumatic disorders of mitral, aortic and tricuspid valves; I27.20 Pulmonary hypertension, unspecified; Z79.2 Long term (current) use of antibiotics; Z99.81 Dependence on supplemental oxygen; Z98.42 Cataract extraction status, left eye; Z98.41 Cataract extraction status, right eye; Z83.2 Family history of diseases of the blood and blood-forming organs and certain disorders involving the immune mechanism; Z82.49 Family history of ischemic heart disease and other diseases of the circulatory system; Z79.52 Long term (current) use of systemic steroids
CPT/HCPCS: 36415; 71045; 71270; 78278; 80048; 80053; 80076; 82270; 83735; 83880; 84134; 84484; 85014; 85018; 85025; 85027; 85060; 85610; 86850; 86900; 86901; 86922; 87040; 87070; 87077; 87086; 87186; 87205; 87502; 88305; 93005; 94640; 94760; 99156; 99157; 99223; A9270-GY; A9512; A9538; G8978-GP-CI; G8979-GP-CI; G8980-GP-CI; G8987-GO-CJ; G8988-GO-CI; G8989-GO-CI; J0692; J0696; J1940; J2250; J2405; J2704; J2920; J3010; P9016; P9040; Q9967